=== PATIENT | female | born 1965 | race Caucasian/White ===

== ENCOUNTER 2017-07-28 23:07 | Emergency (ER) | payer OTHER ==
--- NOTE | 2017-07-28 23:51 | ERPHSYRPT ---
- History of Present Illness Time Seen by Provider: 07/28/17 23:40 Historian: patient Exam Limitations: clinical condition Patient Subjective Stated Complaint: Chest pain, nausea Triage Nursing Assessment: Pt presents to the ED with complaints of intermittent chest discomfort, denies pain at this time. Pt states "I have not felt well all day long." Pt states there is nothing that makes pain better or worse. No distress noted at this time, skin PWD, A&O x4. Physician History: PATIENT WITH A HISTORY OF COPD AND HYPERTENSION COMPLAINS OF UPPER CHEST PAIN DISCOMFORT DURATION 10 SECONDS DESCRIBED ACHING DISCOMFORT. HAS A PRODUCTIVE COUGH AND SLIGHT DYSPNEA DAILY. DENIES RADIATION OF PAIN TO NECK, JAW OR ARMS, FEVER OR CHILLS. Timing/Duration: today Activities at Onset: none Quality: aching Location: substernal Chest Pain Radiation: no radiation Severity of Pain-Max: mild Severity of Pain-Current: none Modifying Factors: Improves With: coughing, oxygen Associated Symptoms: denies symptoms Prior Chest Pain/Cardiac Workup: no prior cardiac workup Nitro Today/Relief: no nitro taken today Aspirin Treatment Today: 81 mg x 4, provided by EMS Allergies/Adverse Reactions: naproxen Allergy (Mild, Verified 07/28/17 23:28) Nausea Home Medications: Aspirin 81 gm Chew [Baby Aspirin 81 mg Chew] 243 mg PO DAILY 07/28/17 [ History] Metoprolol Succinate 50 mg [Toprol Xl 50 MG] 50 mg PO DAILY 07/28/17 [ History] Hx Tetanus, Diphtheria Vaccination/Date Given: No Hx Influenza Vaccination/Date Given: No Hx Pneumococcal Vaccination/Date Given: No Immunizations Up to Date: No - Review of Systems Constitutional: No Fever, No Chills Eyes: No Symptoms Ears, Nose, & Throat: No Symptoms Respiratory: Dyspnea, No Cough Cardiac: No Chest Pain, No Edema, No Syncope Abdominal/Gastrointestinal: No Abdominal Pain, No Nausea, No Vomiting, No Diarrhea Genitourinary Symptoms: No Dysuria Musculoskeletal: No Back Pain, No Neck Pain Skin: No Rash Neurological: No Dizziness, No Focal Weakness, No Sensory Changes Psychological: No Symptoms Endocrine: No Symptoms All Other Systems: Reviewed and Negative - Past Medical History Pertinent Past Medical History: Yes Respiratory History: Asthma Female Reproductive Disorders: Other - Past Surgical History Past Surgical History: Yes Female Surgical History: Hysterectomy Other Surgical History: TONSILECTOMY - Social History Smoking Status: Current every day smoker How long have you smoked: 40years Exposure to second hand smoke: Yes Drug Use: none Patient Lives Alone: No - Female History Hx Now: No - Nursing Vital Signs Nursing Vital Signs: Initial Vital Signs Temperature 97.9 F 07/28/17 23:20 Pulse Rate 88 07/28/17 23:20 Respiratory Rate 20 07/28/17 23:20 Blood Pressure 123/84 07/28/17 23:20 O2 Sat by Pulse Oximetry 95 07/28/17 23:20 Pain Scale Pain Intensity 0 - Physical Exam General Appearance: no apparent distress, alert Eye Exam: PERRL/EOMI, eyes nml inspection Ears, Nose, Throat Exam: normal ENT inspection, moist mucous membranes Neck Exam: normal inspection, non-tender, supple, full range of motion Respiratory Exam: normal breath sounds, diminished breath sounds, other ( TERMINAL EXPIRATORY WHEEZES), No respiratory distress Cardiovascular Exam: regular rate/rhythm, normal heart sounds Gastrointestinal/Abdomen Exam: soft, No tenderness, No mass Back Exam: normal inspection, No CVA tenderness, No vertebral tenderness Extremity Exam: normal inspection, normal range of motion Neurologic Exam: alert, oriented x 3, cooperative, normal mood/affect, sensation nml, No motor deficits Skin Exam: normal color, warm, dry SpO2: 95 Oxygen Delivery: Nasal Cannula - Course EKG Interpreted by Me: RATE, Sinus Rhythm, NORMAL AXIS - Radiology Exams Chest X-ray Interpretation: Interpreted by me (BIBASILAR SCARRING) Ordered Tests: Active Orders 24 hr Category Date Time Status Drugless Physician STAT Care 07/28/17 23:49 Active EKG-ER Only STAT Care 07/28/17 23:48 Active IV Insertion STAT Care 07/28/17 23:48 Active Oxygen-ED Only NASAL CANNULA 2 lpm Care 07/28/17 23:48 Active CHEST 1 VIEW (PORTABLE) Stat Exams 07/28/17 23:49 Taken TROPONIN Q3H Lab 07/29/17 02:49 Ordered TROPONIN Q3H Lab 07/29/17 05:49 Ordered TROPONIN Q3H Lab 07/29/17 08:49 Ordered TROPONIN Q3H Lab 07/29/17 11:49 Ordered Respiratory Nebulizer STAT RT 07/29/17 00:51 Completed Medication Summary Generic Name Dose Route Start Last Admin Trade Name Freq PRN Reason Stop Dose Admin Ceftriaxone Sodium/Dextrose 1 g in 50 mls @ 100 mls/hr 07/29/17 00:52 01:02 Rocephin 1 Gm-D5w 50 Ml Bag IV 07/29/17 01:21 100 mls/hr STAT STA Administration Discontinued Medications Generic Name Dose Route Start Last Admin Trade Name Freq PRN Reason Stop Dose Admin Albuterol/Ipratropium 3 ml 07/29/17 00:50 07/29/17 01:04 Duoneb 0.5-3 Mg/3 Ml Neb IH 07/29/17 00:51 3 ml STAT ONE Administration Albuterol/Ipratropium Confirm 07/29/17 00:53 Duoneb 0.5-3 Mg/3 Ml Neb Administered 07/29/17 00:54 Dose 3 ml IH .STK-MED ONE Ceftriaxone Sodium/Dextrose Confirm 07/29/17 01:01 Rocephin 1 Gm-D5w 50 Ml Bag Administered 07/29/17 01:02 Dose 1 g in 50 mls @ ud IV .STK-MED ONE Lab/Rad Data: Laboratory Result Diagrams 07/28/17 00:05 07/28/17 00:05 Laboratory Results 07/28/17 07/28/17 07/28/17 Range/Units 00:05 00:05 00:05 WBC (4.0-10.5) K/mm3 RBC (4.1-5.4) M/mm3 Hgb (12.0-16.0) gm/dl Hct (35-47) % MCV (78-100) fl MCH (26-32) pg MCHC (32-36) g/dl RDW (11.5-14.0) % Plt Count (150-450) K/mm3 MPV (6-9.5) fl Gran % (36.0-66.0) % Lymphocytes % (24.0-44.0) % Monocytes % (0.0-12.0) % Eosinophils % (0.00-5.0) % Basophils % (0.0-0.4) % Basophils # (0-0.4) INR 0.98 (0.8-3.0) Sodium 138 (136-145) mEq/L Potassium 3.6 (3.5-5.1) mEq/L Chloride 102 (98-107) mEq/L Carbon Dioxide 26.5 (21-32) mEq/L Anion Gap 13.1 (5-15) MEQ/L BUN 10 (9-20) mg/dL Creatinine 0.71 (0.55-1.30) mg/dl Estimated GFR > 60 ML/MIN Glucose 129 H (70-110) MG/DL Calcium 9.0 (8.5-10.1) mg/dL Total Bilirubin 0.20 (0.2-1.0) mg/dL AST 20 (15-37) U/L ALT 25 (12-78) U/L Alkaline Phosphatase 91 (46-116) U/L Troponin I < 0.017 (0.000-0.056) ng/ml Serum Total Protein 7.6 (6.4-8.2) gm/dL Albumin 3.2 L (3.4-5.0) g/dL 07/28/17 Range/Units 00:05 WBC 10.8 H (4.0-10.5) K/mm3 RBC 4.50 (4.1-5.4) M/mm3 Hgb 14.4 (12.0-16.0) gm/dl Hct 43.4 (35-47) % MCV 96.4 (78-100) fl MCH 32.0 (26-32) pg MCHC 33.2 (32-36) g/dl RDW 12.8 (11.5-14.0) % Plt Count 314 (150-450) K/mm3 MPV 9.1 (6-9.5) fl Gran % 63.1 (36.0-66.0) % Lymphocytes % 27.9 (24.0-44.0) % Monocytes % 6.9 (0.0-12.0) % Eosinophils % 1.9 (0.00-5.0) % Basophils % 0.2 (0.0-0.4) % Basophils # 0.02 (0-0.4) INR (0.8-3.0) Sodium (136-145) mEq/L Potassium (3.5-5.1) mEq/L Chloride (98-107) mEq/L Carbon Dioxide (21-32) mEq/L Anion Gap (5-15) MEQ/L BUN (9-20) mg/dL Creatinine (0.55-1.30) mg/dl Estimated GFR ML/MIN Glucose (70-110) MG/DL Calcium (8.5-10.1) mg/dL Total Bilirubin (0.2-1.0) mg/dL AST (15-37) U/L ALT (12-78) U/L Alkaline Phosphatase (46-116) U/L Troponin I (0.000-0.056) ng/ml Serum Total Protein (6.4-8.2) gm/dL Albumin (3.4-5.0) g/dL - Progress Progress: improved Air Movement: good Progress Note: 07/29/17 01:28 ADMINISTERED BABY ASA 4 TABLETS ORALLY, DUONEB AEROSOL TREATMENTS, IV ROCEPHIN 1GM Blood Culture(s) Obtained: No Antibiotics given: Yes Counseled pt/family regarding: lab results, diagnosis, need for follow-up, rad results - Departure Time of Disposition: 01:35 Departure Disposition: Home Clinical Impression: CHRONIC BRONCHITIS Condition: Stable Critical Care Time: No Referrals: PAUL STEVENSON [Primary Care Provider] - Additional Instructions: ANTIBIOTIC OMNICEF 300MG TWICE DAILY FOR 10 DAYS. CONSULT YOUR PRIMARY CARE PROVIDER THIS FOR EALUATION OF YOUR CHEST PAIN. RETURN TO EMERGENCY FOR CHEST PAIN DISCOMFORT. Prescriptions: Cefdinir [Omnicef 300 mg] 300 mg PO BID #20 capsule
[2017-07-29 00:16] LABS: BASOPHIL % 0.2 % (0.0-0.4); Basophil (Absolute #) 0.02 (0-0.4); Eosinophil % 1.9 % (0.00-5.0); Granulocyte Absolute (ANC) 6.82 (1.4-6.9); Granulocytes % 63.1 % (36.0-66.0); Hematocrit 43.4 % (35-47); Hemoglobin 14.4 gm/dl (12.0-16.0); Lymphocyte (Absolute #) 3.01 (1.0-4.6); Lymphocytes % 27.9 % (24.0-44.0); Mean Cell Volume 96.4 fl (78-100); Mean Corpuscular Hgb Concent. 33.2 g/dl (32-36); Mean Platelet Volume 9.1 fl (6-9.5); Monocyte (Absolute #) 0.74 (0.0-1.3); Monocytes % 6.9 % (0.0-12.0); Platelet Count 314 K/mm3 (150-450); Red Cell Distribution Width 12.8 % (11.5-14.0); White Blood Count 10.8 K/mm3 (4.0-10.5)
[2017-07-29 00:36] LABS: INR 0.98 (0.8-3.0)
[2017-07-29 00:40] LABS: ALBUMIN 3.2 g/dL (3.4-5.0); ALKALINE PHOSPHATASE 91 U/L (46-116); ANION GAP 13.1 MEQ/L (5-15); BLOOD UREA NITROGEN 10 mg/dL (9-20); CHLORIDE 102 mEq/L (98-107); Carbon Dioxide 26.5 mEq/L (21-32); Creatinine 1 0.71 mg/dl (0.55-1.30); Glucose 129 MG/DL (70-110); Potassium 3.6 mEq/L (3.5-5.1); SGOT/AST 20 U/L (15-37); SGPT/ALT 25 U/L (12-78); SODIUM 138 mEq/L (136-145); Total Protein 7.6 gm/dL (6.4-8.2)
[2017-07-29] MEDS ORDERED: DUONEB 0.5-3 MG/3 ml Neb IH ONE ×2 (00:50→00:53)
[2017-07-29] MEDS ORDERED: ROCEPHIN 1 Gm-D5w 50 ml Bag** 1 G/50 ML IVPB IV STA (00:52)
[2017-07-29] MEDS ORDERED: ROCEPHIN 1 Gm-D5w 50 ml Bag** 1 G/50 ML IVPB IV ONE (01:01)
[2017-07-29 01:51] VITALS: BP 124/74; PULSE 83; O2SAT 92
--- NOTE | 2017-07-29 09:10 | XRAY ---
Indication: Chest pain. Comparison: October 16, 2015. Portable chest unchanged again hyperinflated with minimal bibasilar fibrosis/scarring. Remaining lungs clear. Heart is not enlarged. Bony thorax intact. No new/acute findings.
== END 2017-07-29 01:50 | disposition home or self-care (01) ==
LOC: ED 23:07
DX: J42 Unspecified chronic bronchitis (principal); R07.9 Chest pain, unspecified; R05 Cough; R06.00 Dyspnea, unspecified
CPT/HCPCS: 36000; 36415; 71045; 80053; 84484; 85025; 85610; 93005; 93041; 94150; 94640; 96365; 99284; J0696; A9270-GY

== ENCOUNTER 2017-09-30 07:05 | Observation (INO) | payer OTHER ==
--- NOTE | 2017-09-30 07:24 | ERPHSYRPT ---
- History of Present Illness Time Seen by Provider: 09/30/17 07:21 Source: patient Exam Limitations: no limitations Patient Subjective Stated Complaint: Pt states "I have been short of breath for the past week, this morning I got up to drink some coffee and I was having a harder time breathing." Triage Nursing Assessment: Pt alert and oriented X 3, skin pwd. pt tachypneic. Able to speak in clear full sentences. PT has intermittant productive coughing. lung sounds diffuse wheezing in all lung og. Physician History: mild to mod shortness of breath and cough for one week, hx copd, given solumedrol by ems, no fever, speech fluent, +wheezing, no home oxygen Allergies/Adverse Reactions: naproxen Allergy (Mild, Verified 07/28/17 23:28) Nausea Home Medications: Aspirin 81 gm Chew [Baby Aspirin 81 mg Chew] 243 mg PO DAILY 07/28/17 [ History] Metoprolol Succinate 50 mg [Toprol Xl 50 MG] 50 mg PO DAILY 07/28/17 [ History] Albuterol Sulfate [Ventolin Hfa] 90 mcg IH DAILY 09/30/17 [History] Hx Tetanus, Diphtheria Vaccination/Date Given: No Hx Influenza Vaccination/Date Given: No Hx Pneumococcal Vaccination/Date Given: No Immunizations Up to Date: Yes - Review of Systems Constitutional: No Fever Eyes: No Eye Redness Ears, Nose, & Throat: No Mouth Pain Respiratory: Cough, Dyspnea, Wheezing, No Stridor Cardiac: No Chest Pain Abdominal/Gastrointestinal: No Abdominal Pain Genitourinary Symptoms: No Dysuria Musculoskeletal: No Back Pain Skin: No Rash Neurological: No Dizziness - Past Medical History Pertinent Past Medical History: Yes Respiratory History: Asthma Female Reproductive Disorders: Other - Past Surgical History Past Surgical History: Yes Female Surgical History: Hysterectomy Other Surgical History: TONSILECTOMY - Social History Smoking Status: Former smoker How long have you smoked: 40years Exposure to second hand smoke: Yes Drug Use: none Patient Lives Alone: No - Female History Hx Last Menstrual Period: hysterectomy Hx Now: No - Nursing Vital Signs Nursing Vital Signs: Initial Vital Signs Temperature 99.1 F 09/30/17 07:06 Pulse Rate 118 H 09/30/17 07:06 Respiratory Rate 22 09/30/17 07:06 Blood Pressure 142/71 09/30/17 07:06 O2 Sat by Pulse Oximetry 89 L 09/30/17 07:06 Pain Scale Pain Intensity 0 - Physical Exam General Appearance: no apparent distress Eye Exam: PERRL/EOMI Ears, Nose, Throat Exam: normal pharynx Neck Exam: normal inspection Respiratory Exam: wheezing Cardiovascular/Chest Exam: regular rate/rhythm Abdominal/Gastrointestinal Exam: soft, No tenderness Extremity Exam: normal range of motion, No pedal edema Neurologic Exam: alert, oriented x 3, cooperative Skin Exam: warm, dry SpO2 Interpretation: hypoxic SpO2: 89 Oxygen Delivery: Room Air - Course Nursing assessment & vital signs reviewed: Yes EKG Interpreted by Me: Other (nsr 98 no stemi) - Radiology Exams Chest X-ray Interpretation: Discussed w/ radiologist, No Infiltrates Ordered Tests: Active Orders 24 hr Category Date Time Status Lead Miner STAT Care 09/30/17 07:20 Active EKG-ER Only STAT Care 09/30/17 07:19 Active IV Insertion STAT Care 09/30/17 07:19 Active Oxygen-ED Only NASAL CANNULA 2 lpm Care 09/30/17 07:24 Active CHEST 2 VIEWS (PA AND LAT) Stat Exams 09/30/17 07:20 Completed CBC W DIFF Stat Lab 09/30/17 07:28 Completed CMP Stat Lab 09/30/17 07:28 Completed D-DIMER QUANTITATION Stat Lab 09/30/17 07:28 Completed Lactic Acid Stat Lab 09/30/17 07:19 Completed NT PRO BNP Stat Lab 09/30/17 07:28 Completed TROPONIN Q3H Lab 09/30/17 07:28 Completed TROPONIN Q3H Lab 09/30/17 10:30 Ordered TROPONIN Q3H Lab 09/30/17 13:30 Ordered TROPONIN Q3H Lab 09/30/17 16:30 Ordered TROPONIN Q3H Lab 09/30/17 19:30 Ordered Respiratory Nebulizer STAT RT 09/30/17 07:20 Completed Medication Summary Discontinued Medications Generic Name Dose Route Start Last Admin Trade Name Freq PRN Reason Stop Dose Admin Albuterol/Ipratropium 3 ml 09/30/17 07:19 09/30/17 07:37 Duoneb 0.5-3 Mg/3 Ml Neb IH 09/30/17 07:20 3 ml STAT ONE Administration Albuterol/Ipratropium Confirm 09/30/17 07:30 Duoneb 0.5-3 Mg/3 Ml Neb Administered 09/30/17 07:31 Dose 3 ml IH .STK-MED ONE Lab/Rad Data: Laboratory Result Diagrams 09/30/17 07:28 09/30/17 07:28 Laboratory Results 09/30/17 09/30/17 09/30/17 Range/Units 07:28 07:28 07:28 WBC (4.0-10.5) K/mm3 RBC (4.1-5.4) M/mm3 Hgb (12.0-16.0) gm/dl Hct (35-47) % MCV (78-100) fl MCH (26-32) pg MCHC (32-36) g/dl RDW (11.5-14.0) % Plt Count (150-450) K/mm3 MPV (6-9.5) fl Gran % (36.0-66.0) % Eos # (Auto) (0-0.5) Absolute Lymphs (auto) (1.0-4.6) Absolute Monos (auto) (0.0-1.3) Lymphocytes % (24.0-44.0) % Monocytes % (0.0-12.0) % Eosinophils % (0.00-5.0) % Basophils % (0.0-0.4) % Absolute Granulocytes (1.4-6.9) Basophils # (0-0.4) D-Dimer 344.93 (215-500) ng/mL Sodium 142 (137-145) mmol/L Potassium 3.6 (3.5-5.1) mmol/L Chloride 103 (98-107) mmol/L Carbon Dioxide 27 (22-30) mmol/L Anion Gap 14.8 (5-15) MEQ/L BUN 9 (7-17) mg/dL Creatinine 0.55 (0.52-1.04) mg/dL Estimated GFR > 60.0 ML/MIN Glucose 171 H (74-106) mg/dL Lactic Acid (0.4-2.0) Calcium 9.2 (8.4-10.2) mg/dL Total Bilirubin 0.40 (0.2-1.3) mg/dL AST 32 (14-36) U/L ALT 29 (0-35) U/L Alkaline Phosphatase 87 (38-126) U/L Troponin I < 0.012 (0.000-0.034) ng/mL NT-Pro-B Natriuret Pep 88.6 (0-900) pg/mL Serum Total Protein 7.6 (6.3-8.2) g/dL Albumin 4.2 (3.5-5.0) g/dL 09/30/17 09/30/17 Range/Units 07:28 07:19 WBC 8.6 (4.0-10.5) K/mm3 RBC 4.76 (4.1-5.4) M/mm3 Hgb 15.1 (12.0-16.0) gm/dl Hct 46.5 (35-47) % MCV 97.7 (78-100) fl MCH 31.7 (26-32) pg MCHC 32.5 (32-36) g/dl RDW 13.1 (11.5-14.0) % Plt Count 295 (150-450) K/mm3 MPV 8.9 (6-9.5) fl Gran % 77.3 H (36.0-66.0) % Eos # (Auto) 0.12 (0-0.5) Absolute Lymphs (auto) 1.22 (1.0-4.6) Absolute Monos (auto) 0.58 (0.0-1.3) Lymphocytes % 14.3 L (24.0-44.0) % Monocytes % 6.8 (0.0-12.0) % Eosinophils % 1.4 (0.00-5.0) % Basophils % 0.2 (0.0-0.4) % Absolute Granulocytes 6.62 (1.4-6.9) Basophils # 0.02 (0-0.4) D-Dimer (215-500) ng/mL Sodium (137-145) mmol/L Potassium (3.5-5.1) mmol/L Chloride (98-107) mmol/L Carbon Dioxide (22-30) mmol/L Anion Gap (5-15) MEQ/L BUN (7-17) mg/dL Creatinine (0.52-1.04) mg/dL Estimated GFR ML/MIN Glucose (74-106) mg/dL Lactic Acid 1.7 (0.4-2.0) Calcium (8.4-10.2) mg/dL Total Bilirubin (0.2-1.3) mg/dL AST (14-36) U/L ALT (0-35) U/L Alkaline Phosphatase (38-126) U/L Troponin I (0.000-0.034) ng/mL NT-Pro-B Natriuret Pep (0-900) pg/mL Serum Total Protein (6.3-8.2) g/dL Albumin (3.5-5.0) g/dL - Progress Progress: improved Air Movement: fair Discussed with : Yuliya Will see patient in: hospital (observation) Counseled pt/family regarding: lab results, diagnosis, need for follow-up, rad results - Departure Time of Disposition: 09:53 Departure Disposition: Observation Clinical Impression: COPD (chronic obstructive pulmonary disease) Qualifiers: COPD type: COPD with acute exacerbation Qualified Code(s): J44.1 - Chronic obstructive pulmonary disease with (acute) exacerbation Condition: Stable Critical Care Time: No Referrals: PAUL STEVENSON [Primary Care Provider] - Instructions: Chronic Obstructive Pulmonary Disease
[2017-09-30] MEDS ORDERED: DUONEB 0.5-3 MG/3 ml Neb IH ONE (07:30)
[2017-09-30 07:31] LABS: BASOPHIL % 0.2 % (0.0-0.4); Basophil (Absolute #) 0.02 (0-0.4); Eosinophil % 1.4 % (0.00-5.0); Eosinophil (Absolute #) 0.12 (0-0.5); Granulocyte Absolute (ANC) 6.62 (1.4-6.9); Granulocytes % 77.3 % (36.0-66.0); Hematocrit 46.5 % (35-47); Hemoglobin 15.1 gm/dl (12.0-16.0); Lymphocyte (Absolute #) 1.22 (1.0-4.6); Lymphocytes % 14.3 % (24.0-44.0); Mean Cell Volume 97.7 fl (78-100); Mean Corpuscular Hemoglobin 31.7 pg (26-32); Mean Corpuscular Hgb Concent. 32.5 g/dl (32-36); Mean Platelet Volume 8.9 fl (6-9.5); Monocyte (Absolute #) 0.58 (0.0-1.3); Monocytes % 6.8 % (0.0-12.0); Platelet Count 295 K/mm3 (150-450); Red Blood Count 4.76 M/mm3 (4.1-5.4); Red Cell Distribution Width 13.1 % (11.5-14.0); White Blood Count 8.6 K/mm3 (4.0-10.5)
[2017-09-30] MEDS: DUONEB 0.5-3 MG/3 ml Neb IH ONE ×2 (07:37→11:28)
[2017-09-30 08:05] LABS: ALBUMIN 4.2 g/dL (3.5-5.0); ALKALINE PHOSPHATASE 87 U/L (38-126); ANION GAP 14.8 MEQ/L (5-15); BLOOD UREA NITROGEN 9 mg/dL (7-17); CHLORIDE 103 mmol/L (98-107); Calcium 9.2 mg/dL (8.4-10.2); Carbon Dioxide 27 mmol/L (22-30); Creatinine 1 0.55 mg/dL (0.52-1.04); Glucose 171 mg/dL (74-106); Potassium 3.6 mmol/L (3.5-5.1); SGOT/AST 32 U/L (14-36); SGPT/ALT 29 U/L (0-35); SODIUM 142 mmol/L (137-145); Total Protein 7.6 g/dL (6.3-8.2)
[2017-09-30 08:13] LABS: NT PRO BNP 88.6 pg/mL (0-900)
--- NOTE | 2017-09-30 09:16 | XRAY ---
Indication: Short of breath. COPD. Comparison: July 28, 2017. PA/lateral chest again hyperinflated with minimal bibasilar fibrosis/scarring and left upper lobe calcified granuloma. Heart is not enlarged. Bony thorax intact again with mild degenerative changes. No new/acute findings. Impression: Stable nonacute hyperinflated chest with chronic features.
[2017-09-30] MEDS ORDERED: TYLENOL 325 MG PO PRN (10:42)
[2017-09-30] MEDS ORDERED: Sodium Chloride 0.9% 1000 ML 1,000 ML IV SCH (10:42)
[2017-09-30] MEDS: Levofloxacin 500MG/100ML D5W 500 MG/100 ML BAG IV SCH (11:20)
[2017-09-30] MEDS: DUONEB 0.5-3 MG/3 ml Neb IH SCH ×3 (15:00→23:06)
[2017-09-30] MEDS: ECOTRIN 81 MG PO SCH (16:10)
[2017-09-30] MEDS: Toprol Xl 50 MG PO SCH (16:10)
[2017-09-30] MEDS ORDERED: solu-MEDROL 125 MG IV ONE (17:49)
--- NOTE | 2017-09-30 17:58 | PCM.HP ---
History of Present Illness - Chief Complaint Chief Complaint: Shortness of Breath Date: 09/30/17 History of Present Illness: is a 52 year old female. who has history of copd and quit smoking 1 month ago and for the last 1 week has had some upper respiratory symptoms but nothing too bad with coughing and congestion until this am she woke up and tried to go to the bathroom was wheezing badly and very short of breath and coughing. She tried her daughters neb machine X2 and was not improving and called 911 and was brought to the ED. She did not have chest pain or nasuea. She feels better now after O2 and treatments. She has not had any swelling - Review of Systems Constitutional: No Fever, No Chills Eyes: No Symptoms Ears, Nose, & Throat: No Symptoms Respiratory: Cough, Short Of Breath Cardiac: No Chest Pain, No Edema, No Syncope Abdominal/Gastrointestinal: No Abdominal Pain, No Nausea, No Vomiting, No Diarrhea Genitourinary Symptoms: No Dysuria Musculoskeletal: No Back Pain, No Neck Pain Skin: No Rash Neurological: No Dizziness, No Focal Weakness, No Sensory Changes Psychological: No Symptoms Endocrine: No Symptoms Hematologic/Lymphatic: No Symptoms Immunological/Allergic: No Symptoms Medications & Allergies Home Medications: Home Medication List Aspirin 81 gm Chew [Baby Aspirin 81 mg Chew] 243 mg PO DAILY 07/28/17 [ History Confirmed 09/30/17] Metoprolol Succinate 50 mg [Toprol Xl 50 MG] 50 mg PO DAILY 07/28/17 [ History Confirmed 09/30/17] Albuterol Sulfate [Ventolin Hfa] 90 mcg IH DAILY 09/30/17 [History Confirmed 12/11] Allergies/Adverse Reactions: Allergies Allergy/AdvReac Type Severity Reaction Status Date / Time naproxen Allergy Mild Nausea Verified 07/28/17 23:28 Sulfa (Sulfonamide Allergy Verified 09/30/17 11:45 Antibiotics) - Past Medical History Past Medical History: Yes Neurological History: No Pertinent History ENT History: No Pertinent History Cardiac History: No Pertinent History Respiratory History: Asthma Endocrine Medical History: No Pertinent History Musculoskelatal History: No Pertinent History GI Medical History: No Pertinent History History: No Pertinent History Pyscho-Social History: No Pertinent History Reproductive Disorders: Other Comment: Cervical dysplasia - Female History Hx Last Menstrual Period: hysterectomy Are you now?: No - Past Surgical History Past Surgical History: Yes Neuro Surgical History: No Pertinent History Cardiac History: No Pertinent History Respiratory Surgery: No Pertinent History GI Surgical History: No Pertinent History Genitourinary Surgical Hx: No Pertinent History Musculskeletal Surgical Hx: No Pertinent History Female Surgical History: Hysterectomy Other Surgical History: TONSILECTOMY - Social History Smoking Status: Former smoker How long have you smoked: 40years Exposure to second hand smoke: Yes Alcohol: None Drug Use: none - Physical Exam Vital Signs: Vital Signs - 24 hr Temp Pulse Resp BP Pulse Ox 09/30/17 16:00 98.0 F 97 H 16 144/69 90 L 09/30/17 15:00 97 H 18 90 L 09/30/17 11:46 98.0 F 88 18 109/59 89 L 09/30/17 11:30 95 H 18 95 09/30/17 09:54 89 L 09/30/17 09:31 99.0 F 89 18 103/57 85 L 09/30/17 08:48 99.0 F 92 H 18 122/70 90 L 09/30/17 07:55 99.0 F 98 H 20 122/77 91 L 09/30/17 07:38 73 24 90 L 09/30/17 07:06 99.1 F 118 H 22 142/71 89 L Oxygen-Last 24 hours O2 Percentage 2 Liters = 28% O2 Percentage 4 Liters = 36% O2 Percentage 4 Liters = 36% Oxygen Flowrate (L/min)-RT 2 General Appearance: no apparent distress, alert Neurologic Exam: alert, oriented x 3, cooperative, normal mood/affect, nml cerebellar function, nml station & gait, sensation nml, No motor deficits Eye Exam: PERRL/EOMI, eyes nml inspection Ears, Nose, Throat Exam: normal ENT inspection, pharynx normal, moist mucous membranes Neck Exam: normal inspection, non-tender, supple, full range of motion Respiratory Exam: prolonged expirations, wheezing, other (poor airmovement with prolonged expirations and wheezing.), No respiratory distress Cardiovascular Exam: regular rate/rhythm, normal heart sounds, normal peripheral pulses Gastrointestinal/Abdomen Exam: soft, normal bowel sounds, No tenderness, No mass Back Exam: normal inspection, normal range of motion, No CVA tenderness, No vertebral tenderness Extremity Exam: normal inspection, normal range of motion, pelvis stable Skin Exam: normal color, warm, dry, No rash Lymphatic Exam: No adenopathy Results - Labs Lab/Micro Results: Lab Results-Last 24 Hours 09/30/17 09/30/17 09/30/17 Range/Units 10:43 13:50 16:46 Troponin I < 0.012 < 0.012 < 0.012 (0.000-0.034) ng/mL - Other Procedures and Tests Respiratory Therapy 09/30/17 11:19 Oxygen NASAL CANNULA 2 lpm 09/30/17 11:20 Respiratory Nebulizer Q4H 09/30/17 12:34 RT Screen per Nursing Assess ONCE Assessment/Plan (1) COPD (chronic obstructive pulmonary disease) Current Visit: Yes Status: Acute Onset Date: ~09/30/17 Qualifiers: COPD type: COPD with acute exacerbation Qualified Code(s): J44.1 - Chronic obstructive pulmonary disease with (acute) exacerbation Assessment & Plan: she received levaquin in ED and atrovent and albuterol and is improving no steroids yet very tight breathing will give solumedrol 125 mg iv stat now and 80 mg q6h following this. will add GI ppx with the protonix whil danica the steroids continue treatments and levaquin no chest pain and negative enzymes she is bothered by the tele so will d/c this up ad martinez lovenox for ppx wean O2 as tolerated (2) Acute hypoxemic respiratory failure Current Visit: Yes Status: Acute Code(s): J96.01 - ACUTE RESPIRATORY FAILURE WITH HYPOXIA
[2017-09-30] MEDS: Protonix 40MG Tablet PO SCH (18:11)
[2017-09-30] MEDS: solu-MEDROL 125 MG IV SCH (23:46)
[2017-10-01] MEDS: DUONEB 0.5-3 MG/3 ml Neb IH SCH ×6 (03:41→23:39)
[2017-10-01 05:53] LABS: ANION GAP 15.8 MEQ/L (5-15); BLOOD UREA NITROGEN 9 mg/dL (7-17); CHLORIDE 105 mmol/L (98-107); Calcium 9.4 mg/dL (8.4-10.2); Carbon Dioxide 23 mmol/L (22-30); Glucose 167 mg/dL (74-106); Potassium 4.9 mmol/L (3.5-5.1); SODIUM 139 mmol/L (137-145)
[2017-10-01] MEDS: solu-MEDROL 125 MG IV SCH ×3 (05:56→17:59)
[2017-10-01] MEDS ORDERED: xanAX 0.5 MG PO PRN (08:09)
--- NOTE | 2017-10-01 08:12 | PCM.NOTE ---
Date and Time: 10/01/17809 Subjective Assessment: feeling better still sob with exertion tried to take O2 off but dropped to 83% coughing ok dryness and soreness in her throat no vomiting or diarrhea Objective Exam General Appearance: no apparent distress, alert Neurologic Exam: alert, oriented x 3, cooperative, normal mood/affect, nml cerebellar function, sensation nml, No motor deficits Skin Exam: normal color, warm, dry Eye Exam: PERRL, EOMI, eyes nml inspection Ears, Nose, Throat Exam: pharynx normal, dry mucous membranes Neck Exam: normal inspection, non-tender, supple, full range of motion Respiratory Exam: prolonged expirations, wheezing, No respiratory distress Cardiovascular Exam: regular rate/rhythm, normal heart sounds Gastrointestinal/Abdomen Exam: soft, No tenderness, No mass Extremity Exam: normal inspection, normal range of motion Back Exam: normal inspection, normal range of motion, No CVA tenderness, No vertebral tenderness Pelvic Exam: deferred Rectal Exam: deferred OBJECTIVE DATA Vital Signs: Vital Signs - 24 hr Temp Pulse Resp BP Pulse Ox 10/01/17 07:27 98 F 87 18 113/58 91 L 10/01/17 07:00 98 H 24 83 L 10/01/17 03:55 20 10/01/17 03:49 97.6 F 71 20 123/58 91 L 10/01/17 03:42 71 20 91 L 10/01/17 00:00 98.4 F 86 20 123/60 93 L 09/30/17 23:06 94 H 16 89 L 09/30/17 20:42 83 16 92 L 09/30/17 20:00 97.5 F 86 18 129/61 90 L 09/30/17 16:00 98.0 F 97 H 16 144/69 90 L 09/30/17 15:00 97 H 18 90 L 09/30/17 11:46 98.0 F 88 18 109/59 89 L 09/30/17 11:30 95 H 18 95 09/30/17 09:54 89 L 09/30/17 09:31 99.0 F 89 18 103/57 85 L 09/30/17 08:48 99.0 F 92 H 18 122/70 90 L Oxygen-Last 24 hours O2 Percentage 3 Liters = 32% O2 Percentage 3 Liters = 32% O2 Percentage 2 Liters = 28% O2 Percentage 2 Liters = 28% Oxygen Flowrate (L/min)-RT 3 Oxygen Flowrate (L/min)-RT 3 Oxygen Flowrate (L/min)-RT 3 Oxygen Flowrate (L/min)-RT 2 Oxygen Flowrate (L/min)-RT 2 Pain Assessment - Last Documented Pain Intensity 0 Pain Scale Used 0-10 Pain Scale Intake and Output: Intake & Output 09/28/17 09/29/17 09/30/17 10/01/17 11:59 11:59 11:59 11:59 Intake Total 3637 Output Total 2750 Balance 887 Weight 98.9 kg Lab Results: Lab Results-Last 24 Hours 09/30/17 09/30/17 09/30/17 Range/Units 10:43 13:50 16:46 Sodium (137-145) mmol/L Potassium (3.5-5.1) mmol/L Chloride (98-107) mmol/L Carbon Dioxide (22-30) mmol/L Anion Gap (5-15) MEQ/L BUN (7-17) mg/dL Creatinine (0.52-1.04) mg/dL Estimated GFR ML/MIN Glucose (74-106) mg/dL Hemoglobin A1c (4.5-6.0) % Calcium (8.4-10.2) mg/dL Troponin I < 0.012 < 0.012 < 0.012 (0.000-0.034) ng/mL 10/01/17 10/01/17 Range/Units 05:20 05:20 Sodium 139 (137-145) mmol/L Potassium 4.9 (3.5-5.1) mmol/L Chloride 105 (98-107) mmol/L Carbon Dioxide 23 (22-30) mmol/L Anion Gap 15.8 H (5-15) MEQ/L BUN 9 (7-17) mg/dL Creatinine 0.50 L (0.52-1.04) mg/dL Estimated GFR > 60.0 ML/MIN Glucose 167 H (74-106) mg/dL Hemoglobin A1c 5.80 (4.5-6.0) % Calcium 9.4 (8.4-10.2) mg/dL Troponin I (0.000-0.034) ng/mL Multi-Disciplinary Progress Notes: Multi-Disciplinary Progress Notes 10/01/17 07:02 Respiratory Note by Marian Perrin ROOM AIR RESTING SPO2 83%. PLACED ON N/C 3LPM SPO2 AT REST 93% Initialized on 10/01/17 07:02 - END OF NOTE Assessment/Plan (1) COPD (chronic obstructive pulmonary disease) Current Visit: Yes Status: Acute Onset Date: ~09/30/17 Qualifiers: COPD type: COPD with acute exacerbation Qualified Code(s): J44.1 - Chronic obstructive pulmonary disease with (acute) exacerbation Assessment & Plan: has only been on the steroids about 12 hours now she is anxious to go home to care for her adult son with down syndrome. Breath sounds much improved today and recommend 24 hours with the steroids and may be able to wean the O2 if not we can send home tomorrow with home O2 (2) Acute hypoxemic respiratory failure Current Visit: Yes Status: Acute Code(s): J96.01 - ACUTE RESPIRATORY FAILURE WITH HYPOXIA
[2017-10-01] MEDS: ECOTRIN 81 MG PO SCH (08:50)
[2017-10-01] MEDS: ENOXAPARIN SODIUM SQ SCH (08:50)
[2017-10-01] MEDS: Levofloxacin 500MG/100ML D5W 500 MG/100 ML BAG IV SCH (08:51)
[2017-10-01] MEDS: Protonix 40MG Tablet PO SCH (08:51)
[2017-10-01] MEDS: Toprol Xl 50 MG PO SCH (08:51)
[2017-10-01] MEDS ORDERED: Ventolin Hfa MDI IH SCH (10:00)
[2017-10-01] MEDS ORDERED: PROVENTIL COMMON CANISTER IH SCH (10:00)
[2017-10-01] MEDS ORDERED: BABY ASPIRIN 81 MG CHEW PO SCH (10:00)
[2017-10-02] MEDS: solu-MEDROL 125 MG IV SCH ×2 (00:43→06:28)
[2017-10-02] MEDS: DUONEB 0.5-3 MG/3 ml Neb IH SCH ×2 (03:38→06:43)
--- NOTE | 2017-10-02 08:22 | PCM.DS ---
Discharge Summary Date of Admission: 09/30/17 10:28 Date of Discharge: 10/02/2017 Admitting Physician: PAUL STEVENSON Primary Care Provider: PAUL STEVENSON Allergies Allergies naproxen Allergy (Mild, Verified 07/28/17 23:28) Nausea Sulfa (Sulfonamide Antibiotics) Allergy (Verified 09/30/17 11:45) Hospital Summary - Hospital Course Hospital Course: she presented wtih acute on chronic worsening of cough and shortness of breath and had CT PE protocol and ekg and troponin sereies that were unremarkable. She had significant wheezing and poor airmovement. She was treated with iv steroids , levaquin and nebs and did have improvement in symptoms but continued to require oxygen. She was improving and otherwise stable but unable to ambulate without desaturation. She was very motivated to leave as she has an adult son with Trisomy 21 she needs to help care for at home. She was improving. she did stop smoking 1 month ago. She was discharged on steroids, levaquin and duonebs. She will continue O2 at home and f/u as an outpatient on the duration of need. The steroids cause her significant restlessness and increased anxiety which is improved with the alprazolam. A short coarse to use as needed with the steroids was given. She understands there risk of abuse and habit forming potential - Vitals & Intake/Output Vital Signs: Vital Signs Temperature 98.2 F 10/02/17 07:33 Pulse Rate 75 10/02/17 07:33 Respiratory Rate 28 H 10/02/17 07:33 Blood Pressure 118/56 10/02/17 07:33 O2 Sat by Pulse Oximetry 91 L 10/02/17 07:33 Oxygen-Last Documented O2 Percentage 3 Liters = 32% Intake & Output: Intake & Output 09/29/17 09/30/17 10/01/17 10/02/17 11:59 11:59 11:59 11:59 Intake Total 3637 1440 Output Total 3250 600 Balance 387 840 Weight 98.9 kg - Lab Result Diagrams: 09/30/17 07:28 10/01/17 05:20 - Procedures and Test Procedures and Tests throughout Hospitalization: Therapy Orders & Screens 09/30/17 11:20 Respiratory Nebulizer Q4H Comment: Diagnosis: Shortness of Breath 09/30/17 12:34 RT Screen per Nursing Assess ONCE Comment: Protocol Order Physician Instructions: Greater than 3 points order RT Admission Screen Reason For Exam: Triggered on Admission Diagnosis: Shortness of Breath Diagnosis: Shortness of Breath Pneumonia: No Home O2: No Asthma: Yes CHF: No Home CPAP/BIPAP: No Home Nebs/MDI: Yes Total Points: 9 Discharge Exam General Appearance: no apparent distress, alert Neurologic Exam: alert, oriented x 3, cooperative, normal mood/affect, nml cerebellar function, sensation nml, No motor deficits Skin Exam: normal color, warm, dry Eye Exam: PERRL, EOMI, eyes nml inspection Ears, Nose, Throat Exam: normal ENT inspection, pharynx normal, moist mucous membranes Neck Exam: normal inspection, non-tender, supple, full range of motion Respiratory Exam: rhonchi, wheezing Cardiovascular Exam: regular rate/rhythm, normal heart sounds Gastrointestinal/Abdomen Exam: soft, No tenderness, No mass Extremity Exam: normal inspection, normal range of motion Back Exam: normal inspection, normal range of motion, No CVA tenderness, No vertebral tenderness Pelvic Exam: deferred Rectal Exam: deferred Final Diagnosis/Problem List - Final Discharge Diagnosis/Problem (1) COPD (chronic obstructive pulmonary disease) Status: Acute Onset Date: ~09/30/17 (2) Acute hypoxemic respiratory failure Status: Acute Onset Date: ~10/01/17 - Discharge Discharge Date: 10/02/17 Disposition: Home, Self-Care Condition: Stable Prescriptions: New ALPRAZolam [Alprazolam] 0.5 mg PO Q6H PRN #15 tablet PRN Reason: Anxiety Albuterol/Ipratropium 3ml Neb* [DUONEB 0.5-3 MG/3 ml Neb] 3 ml IH Q4HRT PRN #50 ampul.neb PRN Reason: Shortness Of Breath/Wheezing Levofloxacin [Levaquin] 500 mg PO DAILY #5 tablet predniSONE [Prednisone] 40 mg PO UD #15 tablet Continue Metoprolol Succinate 50 mg [Toprol Xl 50 MG] 50 mg PO DAILY Aspirin 81 gm Chew [Baby Aspirin 81 mg Chew] 243 mg PO DAILY Albuterol Sulfate [Ventolin Hfa] 90 mcg IH DAILY Instructions: Acute Bronchitis, Adult (DC), Oxygen Therapy, Adult (DC), How to Use a Nebulizer, Adult, Exacerbation of COPD (DC) Additional Instructions: please set up for home oxygen for use at night and with activity, nebulizer and home pulse ox monitoring to check as needed. Follow up with: PAUL STEVENSON [Primary Care Provider] - 10/09/17 9:45 am
[2017-10-02] MEDS: ECOTRIN 81 MG PO SCH (08:59)
[2017-10-02] MEDS: Levofloxacin 500MG/100ML D5W 500 MG/100 ML BAG IV SCH (08:59)
[2017-10-02] MEDS: Toprol Xl 50 MG PO SCH (08:59)
[2017-10-02] MEDS: Protonix 40MG Tablet PO SCH (08:59)
[2017-10-02] MEDS: ENOXAPARIN SODIUM SQ SCH (09:02)
[2017-10-02 11:31] VITALS: BP 133/63; PULSE 86; O2SAT 94
== END 2017-10-02 12:15 | disposition home or self-care (01) ==
LOC: ED 07:05 → MED SURG 10:28
PROVIDERS: ADMIT Family Medicine; ATTEND Family Medicine
DX: J44.9 Chronic obstructive pulmonary disease, unspecified (principal); J96.01 Acute respiratory failure with hypoxia
CPT/HCPCS: 36415; 71046; 80048; 80053; 83036; 83605; 83880; 84484; 85025; 85379; 87040; 93005; 93041; 93268; 94150; 94640; 94760; 99285; J1650; J1956; J2930; A9270-GY; G0378

== ENCOUNTER 2018-01-04 21:24 | Emergency (ER) | payer OTHER ==
--- NOTE | 2018-01-04 22:08 | ERPHSYRPT ---
- History of Present Illness Time Seen by Provider: 01/04/18 22:04 Source: patient, family Exam Limitations: no limitations Patient Subjective Stated Complaint: pt states she has been feeling short of breath today, denies increase in cough. Triage Nursing Assessment: pt alert and oriented, answers questions approp. pt ambulatory with steady gait noted. pt reports shortness of breath with exertion. respirations nonlabored. exp wheeze noted to lt thoroughout. pt arrive with o2 at 3l per nc and states she wears as needed at home. skin pink warm and dry. Physician History: pt has hx COPD using oxygen at home and panic attacks- lots of stress lately feels burning in chest with deep breath and at other times - intermittent with shortness of breath, no known CAD , no hx PE no current CP , took asa already pt was on cholesterol med but not anymore, and now on hptn med only; pt was smoker and quit in July; pt has family hx ht dx but at old age mainly. Timing/Duration: today Activities at Onset: emotional stress Severity of Dyspnea-Max: moderate Severity of Dyspnea-Current: moderate Possible Cause: frequent episodes, chronic episodes Modifying Factors: Improves With: albuterol inhaler, deep breath Associated Symptoms: chest pain/discomfort, wheezing, painful breathing International travel in last 2 weeks: No Allergies/Adverse Reactions: naproxen Allergy (Mild, Verified 01/04/18 21:36) Nausea Sulfa (Sulfonamide Antibiotics) Allergy (Verified 01/04/18 21:36) Home Medications: Aspirin 81 gm Chew [Baby Aspirin 81 mg Chew] 243 mg PO DAILY 07/28/17 [ History] Metoprolol Succinate 50 mg [Toprol Xl 50 MG] 50 mg PO DAILY 07/28/17 [ History] Albuterol Sulfate [Ventolin Hfa] 90 mcg IH Q4HPRN PRN 09/30/17 [History] Hx Tetanus, Diphtheria Vaccination/Date Given: No Hx Influenza Vaccination/Date Given: No Hx Pneumococcal Vaccination/Date Given: No Immunizations Up to Date: No - Review of Systems Constitutional: No Fever, No Chills Eyes: No Symptoms Ears, Nose, & Throat: No Symptoms Respiratory: Dyspnea, Wheezing, No Cough Cardiac: Chest Pain, No Edema, No Syncope Abdominal/Gastrointestinal: No Abdominal Pain, No Nausea, No Vomiting, No Diarrhea Genitourinary Symptoms: No Dysuria Musculoskeletal: No Back Pain, No Neck Pain Skin: No Rash Neurological: No Dizziness, No Focal Weakness, No Sensory Changes Psychological: No Symptoms Endocrine: No Symptoms All Other Systems: Reviewed and Negative - Past Medical History Pertinent Past Medical History: Yes Neurological History: No Pertinent History ENT History: No Pertinent History Cardiac History: No Pertinent History, Hypertension Respiratory History: Asthma, COPD Endocrine Medical History: No Pertinent History Musculoskeletal History: No Pertinent History GI Medical History: No Pertinent History History: No Pertinent History Psycho-Social History: No Pertinent History Female Reproductive Disorders: Other Other Medical History: Cervical dysplasia - Past Surgical History Past Surgical History: Yes Neuro Surgical History: No Pertinent History Cardiac: No Pertinent History Respiratory: No Pertinent History Gastrointestinal: No Pertinent History Genitourinary: No Pertinent History Musculoskeletal: No Pertinent History Female Surgical History: Hysterectomy Other Surgical History: TONSILECTOMY - Social History Smoking Status: Former smoker How long have you smoked: 40years Exposure to second hand smoke: Yes Drug Use: none Patient Lives Alone: No - Nursing Vital Signs Nursing Vital Signs: Initial Vital Signs Temperature 97.9 F 01/04/18 21:26 Pulse Rate 99 H 01/04/18 21:26 Respiratory Rate 20 01/04/18 21:26 Blood Pressure 170/89 01/04/18 21:26 O2 Sat by Pulse Oximetry 96 01/04/18 21:26 Pain Scale Pain Intensity 0 - Physical Exam General Appearance: no apparent distress, alert Eye Exam: PERRL/EOMI Neck Exam: normal inspection, supple Respiratory Exam: airway intact, rhonchi, wheezing Cardiovascular/Chest Exam: normal heart sounds, regular rate/rhythm Abdominal/Gastrointestinal Exam: soft, No tenderness, No distention, No mass Rectal Exam: deferred Extremity Exam: non-tender, normal range of motion, normal inspection, no calf tenderness, no pedal edema Peripheral Pulses Exam: carotid (R): 2+, carotid (L): 2+, femoral (R): 2+, femoral (L): 2+, dorsalis-pedis (R): 2+, dorsalis-pedis (L): 2+ Neurologic Exam: alert, oriented x 3, cooperative, clinical education specialist II-XII nml as tested, sensation nml, No motor deficits Skin Exam: normal color, warm, No dry SpO2 Interpretation: normal SpO2: 96 Oxygen Delivery: Nasal Cannula - Course Nursing assessment & vital signs reviewed: Yes EKG Interpreted by Me: Sinus Rhythm, NORMAL AXIS, Non-specific ST Changes - Radiology Exams Chest X-ray Interpretation: Reviewed by me, Infiltrates (bilateral similar to september and july this year but some increase) Ordered Tests: Active Orders 24 hr Category Date Time Status Self Storage Manager STAT Care 01/04/18 22:09 Active Clean Catch Urine Specimen STAT Care 01/04/18 22:08 Active EKG-ER Only STAT Care 01/04/18 22:08 Active IV Insertion STAT Care 01/04/18 22:08 Active Oxygen-ED Only NASAL CANNULA 3 lpm Care 01/04/18 22:08 Active Pulse Oximetry (ED) STAT Care 01/04/18 22:08 Active CHEST 1 VIEW (PORTABLE) Stat Exams 01/04/18 22:09 Taken AMYLASE Stat Lab 01/04/18 22:00 Completed CBC W DIFF Stat Lab 01/04/18 22:00 Completed CK-Creatinine Phosphokinase Stat Lab 01/04/18 22:00 Completed CMP Stat Lab 01/04/18 22:00 Completed D-DIMER QUANTITATION Stat Lab 01/04/18 22:00 Completed HCG QUALITATIVE,SERUM Stat Lab 01/04/18 22:00 Completed LIPASE Stat Lab 01/04/18 22:00 Completed Lactic Acid Stat Lab 01/04/18 22:08 Completed NT PRO BNP Stat Lab 01/04/18 22:00 Completed TROPONIN Q3H Lab 01/04/18 22:00 Completed TROPONIN Q3H Lab 01/05/18 01:34 Received TROPONIN Q3H Lab 01/05/18 04:15 Ordered TROPONIN Q3H Lab 01/05/18 07:15 Ordered TROPONIN Q3H Lab 01/05/18 10:15 Ordered UA W/ MICROSCOPIC Stat Lab 01/04/18 22:10 Completed Medication Summary Generic Name Dose Route Start Last Admin Trade Name Freq PRN Reason Stop Dose Admin Sodium Chloride 1,000 mls @ 100 mls/hr 01/04/18 22:15 01/04/18 22:27 Sodium Chloride 0.9% 1000 Ml IV 02/03/18 22:14 100 mls/hr .Q10H KRISSY Administration Discontinued Medications Generic Name Dose Route Start Last Admin Trade Name Freq PRN Reason Stop Dose Admin Ceftriaxone Sodium/Dextrose 1 g in 50 mls @ 100 mls/hr 01/04/18 22:46 23:21 Rocephin 1 Gm-D5w 50 Ml Bag IV 01/04/18 23:15 100 mls/hr STAT STA Administration Ceftriaxone Sodium/Dextrose Confirm 01/04/18 23:18 Rocephin 1 Gm-D5w 50 Ml Bag Administered 01/04/18 23:19 Dose 1 g in 50 mls @ ud IV .STK-MED ONE Lorazepam 1 mg 01/04/18 22:11 01/04/18 22:26 Ativan 1 Mg PO 01/04/18 22:12 1 mg STAT ONE Administration Lorazepam Confirm 01/04/18 22:14 Ativan 1 Mg Administered 01/04/18 22:15 Dose 1 mg .ROUTE .STK-MED ONE Methylprednisolone Sodium Succinate 125 mg 01/04/18 22:20 01/04/18 22:27 Solu-Medrol 125 Mg IV 01/04/18 22:21 125 mg STAT ONE Administration Methylprednisolone Sodium Succinate Confirm 01/04/18 22:23 Solu-Medrol 125 Mg Administered 01/04/18 22:24 Dose 125 mg .ROUTE .STK-MED ONE Nitroglycerin 0.4 mg 01/04/18 22:11 Nitrostat 0.4 Mg (Ed) SL 01/04/18 22:12 STAT ONE Lab/Rad Data: Laboratory Result Diagrams 01/04/18 22:00 01/04/18 22:00 Laboratory Results 01/04/18 01/04/18 01/04/18 Range/Units 22:27 22:10 22:08 WBC (4.0-10.5) K/mm3 RBC (4.1-5.4) M/mm3 Hgb (12.0-16.0) gm/dl Hct (35-47) % MCV (78-100) fl MCH (26-32) pg MCHC (32-36) g/dl RDW (11.5-14.0) % Plt Count (150-450) K/mm3 MPV (6-9.5) fl Gran % (36.0-66.0) % Eos # (Auto) (0-0.5) Absolute Lymphs (auto) (1.0-4.6) Absolute Monos (auto) (0.0-1.3) Lymphocytes % (24.0-44.0) % Monocytes % (0.0-12.0) % Eosinophils % (0.00-5.0) % Basophils % (0.0-0.4) % Absolute Granulocytes (1.4-6.9) Basophils # (0-0.4) D-Dimer (215-500) ng/mL Sodium (137-145) mmol/L Potassium (3.5-5.1) mmol/L Chloride (98-107) mmol/L Carbon Dioxide (22-30) mmol/L Anion Gap (5-15) MEQ/L BUN (7-17) mg/dL Creatinine (0.52-1.04) mg/dL Estimated GFR ML/MIN Glucose (74-106) mg/dL Lactic Acid 1.7 (0.4-2.0) Calcium (8.4-10.2) mg/dL Total Bilirubin (0.2-1.3) mg/dL AST (14-36) U/L ALT (0-35) U/L Alkaline Phosphatase (38-126) U/L Creatine Kinase (30-135) U/L Troponin I (0.000-0.034) ng/mL NT-Pro-B Natriuret Pep (0-900) pg/mL Serum Total Protein (6.3-8.2) g/dL Albumin (3.5-5.0) g/dL Amylase (30-110) U/L Lipase (23-300) U/L Serum , Qual (Negative) Ur Collection Type VOID Urine Color LT.YELLOW (YELLOW) Urine Appearance CLEAR (CLEAR) Urine pH 7.0 (5-6) Ur Specific Erwin 1.005 (1.005-1.025) Urine Protein NEGATIVE (Negative) Urine Ketones NEGATIVE (NEGATIVE) Urine Blood 250 (0-5) Keon/ul Urine Nitrite NEGATIVE (NEGATIVE) Urine Bilirubin NEGATIVE (NEGATIVE) Urine Urobilinogen NORMAL (0-1) mg/dL Ur Leukocyte Esterase NEGATIVE (NEGATIVE) Urine Microscopic RBC 5-10 (0-2) /HPF Urine Microscopic WBC 0-2 (0-5) /HPF Ur Epithelial Cells MODERATE (FEW) /HPF Urine Bacteria FEW (NEGATIVE) /HPF Urine Mucus SLIGHT (NEGATIVE) /HPF Urine Culture Reflexed NO (NO) Urine Glucose NEGATIVE (NEGATIVE) mg/dL Influenza Type A Ag NEGATIVE (NEGATIVE) Influenza Type B Ag NEGATIVE (NEGATIVE) RSV (PCR) NEGATIVE (Negative) Specimen Received 01/04/18220901/04/18 01/04/18 01/04/18 Range/Units 22:00 22:00 22:00 WBC (4.0-10.5) K/mm3 RBC (4.1-5.4) M/mm3 Hgb (12.0-16.0) gm/dl Hct (35-47) % MCV (78-100) fl MCH (26-32) pg MCHC (32-36) g/dl RDW (11.5-14.0) % Plt Count (150-450) K/mm3 MPV (6-9.5) fl Gran % (36.0-66.0) % Eos # (Auto) (0-0.5) Absolute Lymphs (auto) (1.0-4.6) Absolute Monos (auto) (0.0-1.3) Lymphocytes % (24.0-44.0) % Monocytes % (0.0-12.0) % Eosinophils % (0.00-5.0) % Basophils % (0.0-0.4) % Absolute Granulocytes (1.4-6.9) Basophils # (0-0.4) D-Dimer 303 (215-500) ng/mL Sodium (137-145) mmol/L Potassium (3.5-5.1) mmol/L Chloride (98-107) mmol/L Carbon Dioxide (22-30) mmol/L Anion Gap (5-15) MEQ/L BUN (7-17) mg/dL Creatinine (0.52-1.04) mg/dL Estimated GFR ML/MIN Glucose (74-106) mg/dL Lactic Acid (0.4-2.0) Calcium (8.4-10.2) mg/dL Total Bilirubin (0.2-1.3) mg/dL AST (14-36) U/L ALT (0-35) U/L Alkaline Phosphatase (38-126) U/L Creatine Kinase (30-135) U/L Troponin I < 0.012 (0.000-0.034) ng/mL NT-Pro-B Natriuret Pep (0-900) pg/mL Serum Total Protein (6.3-8.2) g/dL Albumin (3.5-5.0) g/dL Amylase (30-110) U/L Lipase (23-300) U/L Serum , Qual NEGATIVE (Negative) Ur Collection Type Urine Color (YELLOW) Urine Appearance (CLEAR) Urine pH (5-6) Ur Specific Erwin (1.005-1.025) Urine Protein (Negative) Urine Ketones (NEGATIVE) Urine Blood (0-5) Keon/ul Urine Nitrite (NEGATIVE) Urine Bilirubin (NEGATIVE) Urine Urobilinogen (0-1) mg/dL Ur Leukocyte Esterase (NEGATIVE) Urine Microscopic RBC (0-2) /HPF Urine Microscopic WBC (0-5) /HPF Ur Epithelial Cells (FEW) /HPF Urine Bacteria (NEGATIVE) /HPF Urine Mucus (NEGATIVE) /HPF Urine Culture Reflexed (NO) Urine Glucose (NEGATIVE) mg/dL Influenza Type A Ag (NEGATIVE) Influenza Type B Ag (NEGATIVE) RSV (PCR) (Negative) Specimen Received 01/04/18 01/04/18 Range/Units 22:00 22:00 WBC 12.5 H (4.0-10.5) K/mm3 RBC 4.78 (4.1-5.4) M/mm3 Hgb 15.1 (12.0-16.0) gm/dl Hct 45.9 (35-47) % MCV 96.0 (78-100) fl MCH 31.6 (26-32) pg MCHC 32.9 (32-36) g/dl RDW 13.2 (11.5-14.0) % Plt Count 333 (150-450) K/mm3 MPV 9.2 (6-9.5) fl Gran % 73.1 H (36.0-66.0) % Eos # (Auto) 0.07 (0-0.5) Absolute Lymphs (auto) 2.53 (1.0-4.6) Absolute Monos (auto) 0.71 (0.0-1.3) Lymphocytes % 20.3 L (24.0-44.0) % Monocytes % 5.7 (0.0-12.0) % Eosinophils % 0.6 (0.00-5.0) % Basophils % 0.3 (0.0-0.4) % Absolute Granulocytes 9.12 H (1.4-6.9) Basophils # 0.04 (0-0.4) D-Dimer (215-500) ng/mL Sodium 141 (137-145) mmol/L Potassium 4.0 (3.5-5.1) mmol/L Chloride 104 (98-107) mmol/L Carbon Dioxide 27 (22-30) mmol/L Anion Gap 13.7 (5-15) MEQ/L BUN 11 (7-17) mg/dL Creatinine 0.61 (0.52-1.04) mg/dL Estimated GFR > 60.0 ML/MIN Glucose 115 H (74-106) mg/dL Lactic Acid (0.4-2.0) Calcium 9.8 (8.4-10.2) mg/dL Total Bilirubin 0.40 (0.2-1.3) mg/dL AST 22 (14-36) U/L ALT 23 (0-35) U/L Alkaline Phosphatase 89 (38-126) U/L Creatine Kinase 170 H (30-135) U/L Troponin I (0.000-0.034) ng/mL NT-Pro-B Natriuret Pep 37.6 (0-900) pg/mL Serum Total Protein 7.4 (6.3-8.2) g/dL Albumin 4.6 (3.5-5.0) g/dL Amylase 48 (30-110) U/L Lipase 65 (23-300) U/L Serum , Qual (Negative) Ur Collection Type Urine Color (YELLOW) Urine Appearance (CLEAR) Urine pH (5-6) Ur Specific Erwin (1.005-1.025) Urine Protein (Negative) Urine Ketones (NEGATIVE) Urine Blood (0-5) Keon/ul Urine Nitrite (NEGATIVE) Urine Bilirubin (NEGATIVE) Urine Urobilinogen (0-1) mg/dL Ur Leukocyte Esterase (NEGATIVE) Urine Microscopic RBC (0-2) /HPF Urine Microscopic WBC (0-5) /HPF Ur Epithelial Cells (FEW) /HPF Urine Bacteria (NEGATIVE) /HPF Urine Mucus (NEGATIVE) /HPF Urine Culture Reflexed (NO) Urine Glucose (NEGATIVE) mg/dL Influenza Type A Ag (NEGATIVE) Influenza Type B Ag (NEGATIVE) RSV (PCR) (Negative) Specimen Received - Progress Progress: improved, re-examined Air Movement: good Progress Note: 01/04/18 23:56 although pts CP resolved , we have discussed with her that her heart score is moderate and that there is still some risk that she could have a cardiac event including and that further workup is advised including observation tonight to exclude this , but she declines admission/observation at this time and wishes DC to f/u PCP for workup as outpt. 01/05/18 00:24 discussed with pt her heart score of 4 which even with 2 neg trops would advise observation overnight and that the estimated risk from that stratification has been 13% ( one in 7) for heart attack which could include , she understands and has the capacity to make this choice. 01/05/18 01:16 awaiting second trop now and this will place us passed 4 hours to complete. Blood Culture(s) Obtained: No Counseled pt/family regarding: lab results, diagnosis, need for follow-up, rad results - Departure Time of Disposition: 02:08 Departure Disposition: AMA Clinical Impression: COPD exacerbation, Hematuria, Chest pain Condition: Good Critical Care Time: No Referrals: PAUL STEVENSON [Primary Care Provider] - Instructions: Chronic Obstructive Pulmonary Disease, Blood in the Urine ( Hematuria) in Adults, Chest Pain (DC), Exacerbation of COPD (DC) Additional Instructions: You have symptoms of exacerbation of your lung disease COPD , but some symptoms also consistent with heart disease which needs to be worked up. Your risk factors are at a level for which an overnight observation is advised, as previously discussed. we understand that you have chosen to followup with your Dr and have further workup as an outpatient. You also have some blood in the urine to followup with your dr. You may return at any time - meanwhile for any concerns. Prescriptions: Amoxicillin/Potassium Clav [Augmentin 875-125 Tablet] 875 mg PO BID #20 tablet Methylprednisolone Packet [Medrol Dosepack] 4 mg PO UD #30 packet
[2018-01-04] MEDS ORDERED: Nitrostat 0.4 MG (ED) SL ONE (22:11)
[2018-01-04] MEDS ORDERED: Ativan 1 MG PO ONE (22:11)
[2018-01-04] MEDS ORDERED: Ativan 1 MG ONE (22:14)
[2018-01-04] MEDS ORDERED: Sodium Chloride 0.9% 1000 ML 1,000 ML ONE (22:14)
[2018-01-04] MEDS ORDERED: Sodium Chloride 0.9% 1000 ML 1,000 ML IV SCH (22:15)
[2018-01-04] MEDS ORDERED: solu-MEDROL 125 MG IV ONE (22:20)
[2018-01-04] MEDS ORDERED: solu-MEDROL 125 MG ONE (22:23)
[2018-01-04 22:24] LABS: BASOPHIL % 0.3 % (0.0-0.4); Basophil (Absolute #) 0.04 (0-0.4); Eosinophil % 0.6 % (0.00-5.0); Eosinophil (Absolute #) 0.07 (0-0.5); Granulocyte Absolute (ANC) 9.12 (1.4-6.9); Granulocytes % 73.1 % (36.0-66.0); Hematocrit 45.9 % (35-47); Hemoglobin 15.1 gm/dl (12.0-16.0); Lymphocyte (Absolute #) 2.53 (1.0-4.6); Lymphocytes % 20.3 % (24.0-44.0); Mean Corpuscular Hemoglobin 31.6 pg (26-32); Mean Corpuscular Hgb Concent. 32.9 g/dl (32-36); Mean Platelet Volume 9.2 fl (6-9.5); Monocyte (Absolute #) 0.71 (0.0-1.3); Monocytes % 5.7 % (0.0-12.0); Platelet Count 333 K/mm3 (150-450); Red Blood Count 4.78 M/mm3 (4.1-5.4); Red Cell Distribution Width 13.2 % (11.5-14.0); White Blood Count 12.5 K/mm3 (4.0-10.5)
[2018-01-04 22:38] LABS: ALBUMIN 4.6 g/dL (3.5-5.0); ALKALINE PHOSPHATASE 89 U/L (38-126); AMYLASE 48 U/L (30-110); ANION GAP 13.7 MEQ/L (5-15); BLOOD UREA NITROGEN 11 mg/dL (7-17); CHLORIDE 104 mmol/L (98-107); CK-Creatinine Phosphokinase 170 U/L (30-135); Calcium 9.8 mg/dL (8.4-10.2); Carbon Dioxide 27 mmol/L (22-30); Creatinine 1 0.61 mg/dL (0.52-1.04); Glucose 115 mg/dL (74-106); LIPASE 65 U/L (23-300); NT PRO BNP 37.6 pg/mL (0-900); SGOT/AST 22 U/L (14-36); SGPT/ALT 23 U/L (0-35); SODIUM 141 mmol/L (137-145); Total Protein 7.4 g/dL (6.3-8.2)
[2018-01-04] MEDS ORDERED: ROCEPHIN 1 Gm-D5w 50 ml Bag** 1 G/50 ML IVPB IV STA (22:46)
[2018-01-04 22:48] LABS: Appearance CLEAR (CLEAR); Bilirubin NEGATIVE (NEGATIVE); Blood 250 Ery/ul (0-5); Glucose NEGATIVE (NEGATIVE); Ketones NEGATIVE (NEGATIVE); Leukocyte Esterase NEGATIVE (NEGATIVE); Mucus SLIGHT /HPF (NEGATIVE); Nitrite NEGATIVE (NEGATIVE); Protein,Urine Dip NEGATIVE (Negative); Specific Gravity 1.005 (1.005-1.025); Urobilinogen NORMAL mg/dL (0-1)
[2018-01-04 22:49] LABS: Bacteria FEW /HPF (NEGATIVE); Epithelial Cells MODERATE /HPF (FEW); WBC 0-2 /HPF (0-5)
[2018-01-04 23:02] LABS: INFLUENZA A NEGATIVE (NEGATIVE); INFLUENZA B NEGATIVE (NEGATIVE); RESPIRATORY SYNCTIAL VIRUS NEGATIVE (Negative)
[2018-01-04] MEDS ORDERED: ROCEPHIN 1 Gm-D5w 50 ml Bag** 1 G/50 ML IVPB IV ONE (23:18)
[2018-01-05 02:45] VITALS: BP 125/69; PULSE 80; O2SAT 94
--- NOTE | 2018-01-05 07:32 | XRAY ---
Indication: Short of breath. History COPD. Comparison: September 30, 2017. Portable chest remains hyperinflated with bibasilar fibrosis/scarring, left costophrenic angle blunting, and left upper lobe calcified granuloma. Remaining heart and lungs unremarkable. Bony thorax intact again with mild degenerative changes. Impression: Stable nonacute hyperinflated chest with chronic features.
== END 2018-01-05 02:35 | disposition home or self-care (01) ==
LOC: ED 21:24
DX: J44.1 Chronic obstructive pulmonary disease with (acute) exacerbation (principal); R31.9 Hematuria, unspecified; R07.9 Chest pain, unspecified; Z99.81 Dependence on supplemental oxygen; Z79.82 Long term (current) use of aspirin; Z79.899 Other long term (current) drug therapy
CPT/HCPCS: 36000; 36415; 71045; 80053; 81000; 82150; 82550; 83605; 83690; 83880; 84484; 84703; 85025; 85379; 87631; 93005; 93041; 96360; 96365; 96374; 99284; J0696; J2930; A9270-GY

== ENCOUNTER 2018-05-13 19:18 | Emergency (ER) | payer OTHER ==
--- NOTE | 2018-05-13 19:31 | ERPHSYRPT ---
- History of Present Illness Time Seen by Provider: 05/13/18 19:20 Source: patient Exam Limitations: no limitations Physician History: 53 y/o white female with h/o copd presents with increasing sob and wheezing. pt called her office copy selector dr. starkey earlier today and received rx for steroids and keflex. pt noticed a pain right lateral lower ribs and she became concerned about pneumonia. she therefore came in for cxr just to be sure she does or does not have pneumonia. she does not have any ant chest pain. she is fine taking care of issues as long as she does not have a pneumonia. Timing/Duration: today Activities at Onset: none Severity of Dyspnea-Max: mild Severity of Dyspnea-Current: mild Possible Cause: occasional episodes Modifying Factors: Improves With: albuterol nebulizer (improves) Associated Symptoms: cough, wheezing Allergies/Adverse Reactions: naproxen Allergy (Mild, Verified 01/04/18 21:36) Nausea Sulfa (Sulfonamide Antibiotics) Allergy (Verified 01/04/18 21:36) Home Medications: Aspirin 81 gm Chew [Baby Aspirin 81 mg Chew] 243 mg PO DAILY 07/28/17 [ History] Metoprolol Succinate 50 mg [Toprol Xl 50 MG] 50 mg PO DAILY 07/28/17 [ History] Albuterol Sulfate [Ventolin Hfa] 90 mcg IH Q4HPRN PRN 09/30/17 [History] Hx Tetanus, Diphtheria Vaccination/Date Given: No Hx Influenza Vaccination/Date Given: No Hx Pneumococcal Vaccination/Date Given: No - Review of Systems Constitutional: No Symptoms Eyes: No Symptoms Ears, Nose, & Throat: No Symptoms Respiratory: Cough, Dyspnea (mild), Wheezing Cardiac: No Symptoms, No Chest Pain, No Palpitations, No Syncope Abdominal/Gastrointestinal: No Symptoms, No Abdominal Pain, No Nausea, No Vomiting, No Diarrhea Genitourinary Symptoms: No Symptoms, No Dysuria, No Frequency, No Hematuria Musculoskeletal: No Symptoms Skin: No Symptoms Neurological: No Symptoms Psychological: No Symptoms Endocrine: No Symptoms Hematologic/Lymphatic: No Symptoms Immunological/Allergic: No Symptoms All Other Systems: Reviewed and Negative - Past Medical History Pertinent Past Medical History: Yes Neurological History: No Pertinent History ENT History: No Pertinent History Cardiac History: No Pertinent History, Hypertension Respiratory History: Asthma, COPD Endocrine Medical History: No Pertinent History Musculoskeletal History: No Pertinent History GI Medical History: No Pertinent History History: No Pertinent History Psycho-Social History: No Pertinent History Female Reproductive Disorders: Other Other Medical History: Cervical dysplasia - Past Surgical History Past Surgical History: Yes Neuro Surgical History: No Pertinent History Cardiac: No Pertinent History Respiratory: No Pertinent History Gastrointestinal: No Pertinent History Genitourinary: No Pertinent History Musculoskeletal: No Pertinent History Female Surgical History: Hysterectomy Other Surgical History: TONSILECTOMY - Social History Smoking Status: Former smoker How long have you smoked: 40years Exposure to second hand smoke: Yes Drug Use: none Patient Lives Alone: No - Physical Exam General Appearance: no apparent distress, alert, anxiety Eye Exam: PERRL/EOMI Ears, Nose, Throat Exam: hearing grossly normal Neck Exam: normal inspection, non-tender, supple, full range of motion Respiratory Exam: airway intact, wheezing (mild bilat), No chest tenderness, No respiratory distress, No accessory muscle use, No rhonchi, No stridor Cardiovascular/Chest Exam: normal heart sounds, regular rate/rhythm Abdominal/Gastrointestinal Exam: soft, normal bowel sounds, No tenderness, No guarding, No rebound Rectal Exam: not done Extremity Exam: non-tender, normal range of motion, normal inspection Neurologic Exam: alert, oriented x 3, cooperative, postal clerk II-XII nml as tested Skin Exam: normal color, warm, dry Lymphatic Exam: No adenopathy SpO2 Interpretation: normal Oxygen Delivery: Room Air - Course Nursing assessment & vital signs reviewed: Yes EKG Interpreted by Me: RATE (80), Sinus Rhythm, NORMAL AXIS, NORMAL INTERVALS, NORMAL QRS, Other (no change from ekg dated 01/04/18) Ordered Tests: Active Orders 24 hr Category Date Time Status EKG-ER Only STAT Care 05/13/18 19:35 Active CHEST 1 VIEW (PORTABLE) Stat Exams 05/13/18 19:35 Taken Peak Expiratory Flow Rate ONCE RT 05/13/18 19:53 Active Respiratory Therapy Assessment DAILY RT 05/13/18 19:54 Active Medication Summary Generic Name Dose Route Start Last Admin Trade Name Freq PRN Reason Stop Dose Admin Ceftriaxone Sodium/Dextrose 1 g in 50 mls @ 100 mls/hr 05/13/18 19:35 Rocephin 1 Gm-D5w 50 Ml Bag IV 05/13/18 20:04 STAT STA Discontinued Medications Generic Name Dose Route Start Last Admin Trade Name Sanju PRN Reason Stop Dose Admin Albuterol/Ipratropium Confirm 05/13/18 19:48 Duoneb 0.5-3 Mg/3 Ml Neb Administered 05/13/18 19:49 Dose 3 ml IH .STK-MED ONE Albuterol/Ipratropium 3 ml 05/13/18 19:53 Duoneb 0.5-3 Mg/3 Ml Neb IH 05/13/18 19:54 STAT ONE Methylprednisolone Sodium Succinate 125 mg 05/13/18 19:35 Solu-Medrol 125 Mg IV 05/13/18 19:36 STAT ONE - Progress Progress: improved Air Movement: good Progress Note: 05/13/18 19:56 cxr-?left basilar atelectasis vs early infiltrate. Blood Culture(s) Obtained: No Antibiotics given: Yes Counseled pt/family regarding: diagnosis, need for follow-up, rad results - Departure Time of Disposition: 19:59 Departure Disposition: Home Clinical Impression: Pulmonary infiltrate Condition: Stable Critical Care Time: No Referrals: PAUL STEVENSON [Primary Care Provider] - Additional Instructions: stop keflex. continue steroids as prescribed. follow up with dr. starkey for further management. Prescriptions: Azithromycin 250 mg [Zithromax 250 MG TABLET] 250 mg PO ZPACK #6 tablet
[2018-05-13] MEDS ORDERED: ROCEPHIN 1 Gm-D5w 50 ml Bag** 1 G/50 ML IVPB IV STA (19:35)
[2018-05-13] MEDS ORDERED: solu-MEDROL 125 MG IV ONE (19:35)
[2018-05-13] MEDS ORDERED: DUONEB 0.5-3 MG/3 ml Neb IH ONE ×2 (19:48→19:53)
[2018-05-13 20:02] VITALS: O2SAT 96
[2018-05-13] MEDS ORDERED: ROCEPHIN 1 Gm-D5w 50 ml Bag** 1 G/50 ML IVPB IV ONE (20:06)
[2018-05-13] MEDS ORDERED: solu-MEDROL 125 MG ONE (20:06)
[2018-05-13 20:40] VITALS: BP 100/50; PULSE 70
--- NOTE | 2018-05-14 09:02 | XRAY ---
Indication: Right chest wall pain. Cough. Comparison: January 04, 2018. Portable chest again hyperinflated with left upper lobe calcified granuloma. Heart is not enlarged. Bony thorax intact again with mild degenerative changes. No new/acute findings. Impression: Nonacute hyperinflated chest with chronic features.
== END 2018-05-13 20:47 | disposition home or self-care (01) ==
LOC: ED 19:18
DX: R91.8 Other nonspecific abnormal finding of lung field (principal); R07.81 Pleurodynia; Z79.82 Long term (current) use of aspirin; Z79.899 Other long term (current) drug therapy
CPT/HCPCS: 71045; 93005; 94150; 94640; 96365; 96374; 99284; J0696; J2930; A9270-GY

== ENCOUNTER 2018-05-14 22:21 | Emergency (ER) | payer OTHER ==
[2018-05-14] MEDS ORDERED: PROVENTIL Solution 2.5 MG/0.5 ML IH ONE (22:43)
[2018-05-14] MEDS ORDERED: Sodium Chloride 3 ML UD NEBULES IH ONE (22:43)
--- NOTE | 2018-05-14 22:43 | ERPHSYRPT ---
- History of Present Illness Time Seen by Provider: 05/14/18 22:37 Source: patient, EMS Exam Limitations: no limitations Physician History: The patient is a 53-year-old female brought in by ambulance from home and she complains of worsening shortness of breath. She was seen yesterday evening in this ER by Dr. Salas for the same complaint. Yesterday she only wanted a chest x-ray, steroids, and antibiotics that were recommended by her youth nutritional monitor, Dr. Urias. No labs were done yesterday. She has a history of anxiety and now is worried that she has a pulmonary embolism because a friend had a PE in the past. When she stands up to walk, she becomes very short of breath. Yesterday she was given a steroid injection, Rocephin, and azithromycin. The ambulance crew jason gave her Solu-Medrol 125 mg, DuoNeb, and albuterol neb. Pt received an influenza vaccination this year. Her past medical history is significant for COPD, HTN, and anxiety. Timing/Duration: day(s) (2), gradual onset, worse Activities at Onset: none Severity of Dyspnea-Max: moderate Severity of Dyspnea-Current: moderate Possible Cause: frequent episodes Modifying Factors: Improves With: albuterol nebulizer, exertion Associated Symptoms: anxiety, chest pain/discomfort (right sided chest pain), wheezing Allergies/Adverse Reactions: naproxen Allergy (Mild, Verified 05/14/18 22:49) Nausea Sulfa (Sulfonamide Antibiotics) Allergy (Verified 05/14/18 22:49) Home Medications: Aspirin 81 gm Chew [Baby Aspirin 81 mg Chew] 243 mg PO DAILY 07/28/17 [ History] Metoprolol Succinate 50 mg [Toprol Xl 50 MG] 50 mg PO DAILY 07/28/17 [ History] Albuterol Sulfate [Ventolin Hfa] 90 mcg IH Q4HPRN PRN 09/30/17 [History] Hx Tetanus, Diphtheria Vaccination/Date Given: No Hx Influenza Vaccination/Date Given: No Hx Pneumococcal Vaccination/Date Given: No - Review of Systems Constitutional: No Fever, No Chills Eyes: No Symptoms Ears, Nose, & Throat: No Symptoms Respiratory: Dyspnea, Dyspnea on Exertion (OZUNA), Wheezing Cardiac: Chest Pain Abdominal/Gastrointestinal: No Abdominal Pain, No Nausea, No Vomiting, No Diarrhea Genitourinary Symptoms: No Dysuria Musculoskeletal: No Back Pain, No Neck Pain Skin: No Rash Neurological: No Dizziness, No Focal Weakness, No Sensory Changes Psychological: No Symptoms Endocrine: No Symptoms Hematologic/Lymphatic: No Symptoms Immunological/Allergic: No Symptoms All Other Systems: Reviewed and Negative - Past Medical History Pertinent Past Medical History: Yes Neurological History: No Pertinent History ENT History: No Pertinent History Cardiac History: No Pertinent History, Hypertension Respiratory History: Asthma, COPD Endocrine Medical History: No Pertinent History Musculoskeletal History: No Pertinent History GI Medical History: No Pertinent History History: No Pertinent History Psycho-Social History: No Pertinent History Female Reproductive Disorders: Other Other Medical History: Cervical dysplasia - Past Surgical History Past Surgical History: Yes Neuro Surgical History: No Pertinent History Cardiac: No Pertinent History Respiratory: No Pertinent History Gastrointestinal: No Pertinent History Genitourinary: No Pertinent History Musculoskeletal: No Pertinent History Female Surgical History: Hysterectomy Other Surgical History: TONSILECTOMY - Social History Smoking Status: Former smoker How long have you smoked: 40years Exposure to second hand smoke: Yes Drug Use: none Patient Lives Alone: No - Nursing Vital Signs Nursing Vital Signs: Initial Vital Signs Temperature 98.1 F 05/14/18 22:36 Pulse Rate 105 H 05/14/18 22:36 Respiratory Rate 18 05/14/18 22:36 Blood Pressure 125/79 05/14/18 22:36 O2 Sat by Pulse Oximetry 95 05/14/18 22:36 Pain Scale Pain Intensity 0 - Physical Exam General Appearance: moderate distress, obese Eye Exam: PERRL/EOMI Ears, Nose, Throat Exam: hearing grossly normal Neck Exam: normal inspection, supple Respiratory Exam: diminished breath sounds, prolonged expirations, wheezing Cardiovascular/Chest Exam: normal heart sounds, regular rate/rhythm Abdominal/Gastrointestinal Exam: soft, No tenderness, No distention, No mass Rectal Exam: not done Extremity Exam: non-tender, normal range of motion, normal inspection, no calf tenderness, no pedal edema Neurologic Exam: alert, oriented x 3, cooperative, curtain framer II-XII nml as tested, sensation nml, No motor deficits Skin Exam: normal color, warm, No dry SpO2 Interpretation: borderline oxygenation Oxygen Delivery: Nasal Cannula (2L) - Course EKG Interpreted by Me: RATE, Sinus Rhythm, NORMAL AXIS, NORMAL INTERVALS, NORMAL QRS, NORMAL ST-T, Other (comp EKG 05/13/18.) - Radiology Exams Chest X-ray Interpretation: Interpreted by me, Negative (stable 2V chest with JEANINE granuloma. comp 1V chest 05/13/18.) Ordered Tests: Active Orders 24 hr Category Date Time Status Reporting Consultant STAT Care 05/14/18 22:39 Active EKG-ER Only STAT Care 05/14/18 22:37 Active IV Insertion STAT Care 05/14/18 22:37 Active Oxygen-ED Only NASAL CANNULA 2 lpm Care 05/14/18 22:37 Active Pulse Oximetry (ED) STAT Care 05/14/18 22:37 Active CHEST 2 VIEWS (PA AND LAT) Stat Exams 05/14/18 22:38 Taken ARTERIAL BLOOD GASES Stat Lab 05/14/18 23:10 Completed CBC W DIFF Stat Lab 05/14/18 22:59 Completed CMP Stat Lab 05/14/18 22:59 Completed D-DIMER QUANTITATION Stat Lab 05/14/18 22:59 Completed Lactic Acid Stat Lab 05/14/18 22:58 Completed Manual Differential NC Stat Lab 05/14/18 22:59 Completed NT PRO BNP Stat Lab 05/14/18 22:59 Completed TROPONIN Q3H Lab 05/14/18 22:59 Completed TROPONIN Q3H Lab 05/15/18 01:45 Ordered TROPONIN Q3H Lab 05/15/18 04:45 Ordered TROPONIN Q3H Lab 05/15/18 07:45 Ordered TROPONIN Q3H Lab 05/15/18 10:45 Ordered Peak Expiratory Flow Rate ONCE RT 05/14/18 22:45 Active Respiratory Nebulizer STAT RT 05/14/18 22:38 Active Medication Summary Discontinued Medications Generic Name Dose Route Start Last Admin Trade Name Freq PRN Reason Stop Dose Admin Albuterol Sulfate 10 mg 05/14/18 22:37 05/14/18 22:45 Proventil 2.5 Mg/3 Ml Neb IH 05/14/18 22:38 10 mg STAT ONE Administration Albuterol Sulfate Confirm 05/14/18 22:43 Proventil Solution 2.5 Mg/0.5 Ml Administered 05/14/18 22:44 Dose 10 mg IH .STK-MED ONE Sodium Chloride Confirm 05/14/18 22:43 Sodium Chloride 3 Ml Ud Nebules Administered 05/14/18 22:44 Dose 3 ml IH .STK-MED ONE Lab/Rad Data: Laboratory Result Diagrams 05/14/18 22:59 05/14/18 22:59 Laboratory Results 05/14/18 05/14/18 05/14/18 Range/Units 23:10 22:59 22:59 WBC (4.0-10.5) K/mm3 RBC (4.1-5.4) M/mm3 Hgb (12.0-16.0) gm/dl Hct (35-47) % MCV (78-100) fl MCH (26-32) pg MCHC (32-36) g/dl RDW (11.5-14.0) % Plt Count (150-450) K/mm3 MPV (6-9.5) fl Absolute Granulocytes (1.4-6.9) Segmented Neutrophils (36.0-66.0) % Band Neutrophils (0.0-2.0) % Lymphocytes (Manual) (24-44) % Eosinophils (Manual) (0.00-3.0) % Atypical Lymphocytes % Platelet Estimate (NORMAL) RBC Morphology D-Dimer < 215 L (215-500) ng/mL Puncture Site RIGHT BRACHIAL pCO2 52 H (35-45) mmHg pO2 61 L (75-100) mmHg Base Excess 4.2 H (-2.0-2.0) O2 Saturation 88.2 L (94-100) g/dF ABG pH 7.38 (7.35-7.45) ABG HCO3 30.8 H* (22-28) ABG O2 Sat (Measured) 93.5 L (95-100) % Scott Test NOT APPLICABLE A-a Gradient 131 a/A Ratio 0.32 Hemoglobin 15.5 Carboxyhemoglobin 4.7 (0.0-6.9) % THgb Methemoglobin 1.0 L (1.4-1.5) % Temperature 37.0 C POC O2 Flow Rate 36 % Sodium (137-145) mmol/L Potassium 3.5 (3.5-5.1) mmol/L Chloride (98-107) mmol/L Carbon Dioxide (22-30) mmol/L Anion Gap (5-15) MEQ/L BUN (7-17) mg/dL Creatinine (0.52-1.04) mg/dL Estimated GFR ML/MIN Glucose (74-106) mg/dL Lactic Acid (0.4-2.0) Calcium (8.4-10.2) mg/dL Total Bilirubin (0.2-1.3) mg/dL AST (14-36) U/L ALT (0-35) U/L Alkaline Phosphatase (38-126) U/L Troponin I < 0.012 (0.000-0.034) ng/mL NT-Pro-B Natriuret Pep (0-900) pg/mL Serum Total Protein (6.3-8.2) g/dL Albumin (3.5-5.0) g/dL 05/14/18 05/14/18 05/14/18 Range/Units 22:59 22:59 22:58 WBC 16.8 H (4.0-10.5) K/mm3 RBC 4.89 (4.1-5.4) M/mm3 Hgb 15.3 (12.0-16.0) gm/dl Hct 47.7 H (35-47) % MCV 97.5 (78-100) fl MCH 31.3 (26-32) pg MCHC 32.1 (32-36) g/dl RDW 13.3 (11.5-14.0) % Plt Count 348 (150-450) K/mm3 MPV 8.9 (6-9.5) fl Absolute Granulocytes 12.71 H (1.4-6.9) Segmented Neutrophils 74 H (36.0-66.0) % Band Neutrophils 1 (0.0-2.0) % Lymphocytes (Manual) 21 L (24-44) % Eosinophils (Manual) 1 (0.00-3.0) % Atypical Lymphocytes 3 % Platelet Estimate NORMAL (NORMAL) RBC Morphology NORMAL D-Dimer (215-500) ng/mL Puncture Site pCO2 (35-45) mmHg pO2 (75-100) mmHg Base Excess (-2.0-2.0) O2 Saturation (94-100) g/dF ABG pH (7.35-7.45) ABG HCO3 (22-28) ABG O2 Sat (Measured) (95-100) % Scott Test A-a Gradient a/A Ratio Hemoglobin Carboxyhemoglobin (0.0-6.9) % THgb Methemoglobin (1.4-1.5) % Temperature C POC O2 Flow Rate % Sodium 138 (137-145) mmol/L Potassium 3.7 (3.5-5.1) mmol/L Chloride 100 (98-107) mmol/L Carbon Dioxide 30 (22-30) mmol/L Anion Gap 11.4 (5-15) MEQ/L BUN 17 (7-17) mg/dL Creatinine 0.70 (0.52-1.04) mg/dL Estimated GFR > 60.0 ML/MIN Glucose 118 H (74-106) mg/dL Lactic Acid 1.1 (0.4-2.0) Calcium 9.6 (8.4-10.2) mg/dL Total Bilirubin 0.40 (0.2-1.3) mg/dL AST 24 (14-36) U/L ALT 26 (0-35) U/L Alkaline Phosphatase 95 (38-126) U/L Troponin I (0.000-0.034) ng/mL NT-Pro-B Natriuret Pep 53.5 (0-900) pg/mL Serum Total Protein 8.3 H (6.3-8.2) g/dL Albumin 4.4 (3.5-5.0) g/dL - Progress Progress: improved Air Movement: good Progress Note: 05/14/18 22:52 The patient refused the influenza swab. 05/15/18 00:54 Pt is feeling and breathing much better. Blood Culture(s) Obtained: No Antibiotics given: No Counseled pt/family regarding: lab results, diagnosis, need for follow-up, rad results - Departure Time of Disposition: 01:07 Departure Disposition: Home Clinical Impression: COPD exacerbation Condition: Stable Critical Care Time: No Referrals: PAUL STEVENSON [Primary Care Provider] - Instructions: Chronic Obstructive Pulmonary Disease Additional Instructions: You have a D COPD exacerbation. You were given Solu-Medrol 125 mg IV in the ambulance. You were also given a DuoNeb and albuterol neb in the ambulance. You were given an hour-long albuterol neb treatment in the ER. Your wheezing has improved significantly. You requested to go home and I agreed to this trial. Increase the prednisone to 60 mg every day for 5 days. Continue with the Z-Khari as originally prescribed. Take albuterol nebulizer treatments at home every 1-2 hours as needed. Follow-up with your primary medical doctor in one to 2 days if you have not improved. Prescriptions: Prednisone 20 mg [Deltasone 20 mg] 3 tab PO DAILY #15 tablet
[2018-05-14] MEDS: PROVENTIL 2.5 MG/3 ML NEB IH ONE (22:45)
[2018-05-14 23:04] LABS: Granulocyte Absolute (ANC) 12.71 (1.4-6.9); Hematocrit 47.7 % (35-47); Hemoglobin 15.3 gm/dl (12.0-16.0); Mean Cell Volume 97.5 fl (78-100); Mean Corpuscular Hemoglobin 31.3 pg (26-32); Mean Corpuscular Hgb Concent. 32.1 g/dl (32-36); Mean Platelet Volume 8.9 fl (6-9.5); Platelet Count 348 K/mm3 (150-450); Red Blood Count 4.89 M/mm3 (4.1-5.4); Red Cell Distribution Width 13.3 % (11.5-14.0); White Blood Count 16.8 K/mm3 (4.0-10.5)
[2018-05-14 23:16] LABS: A-aADO2 131; ABG HEMOGLOBIN 15.5; ABG POTASSIUM 3.5 (3.5-5.1); ABG SITE RIGHT BRACHIAL; ARTERIAL BLD GAS O2 SATURATION 93.5 % (95-100); ARTERIAL BLOOD GAS BASE EXCESS 4.2 (-2.0-2.0); ARTERIAL BLOOD GAS FIO2 36 %; ARTERIAL BLOOD GAS PCO2 52 mmHg (35-45); ARTERIAL BLOOD GAS PO2 61 mmHg (75-100); ARTERIAL BLOOD GAS pH 7.38 (7.35-7.45); CARBOXYHEMOGLOBIN 4.7 % THgb (0.0-6.9); HCO3- 30.8 (22-28); HGB O2 SAT 88.2 g/dF (94-100); paO2 pAO1 0.32
[2018-05-14 23:26] LABS: ALBUMIN 4.4 g/dL (3.5-5.0); ALKALINE PHOSPHATASE 95 U/L (38-126); ANION GAP 11.4 MEQ/L (5-15); BLOOD UREA NITROGEN 17 mg/dL (7-17); CHLORIDE 100 mmol/L (98-107); Calcium 9.6 mg/dL (8.4-10.2); Carbon Dioxide 30 mmol/L (22-30); Glucose 118 mg/dL (74-106); NT PRO BNP 53.5 pg/mL (0-900); Potassium 3.7 mmol/L (3.5-5.1); SGOT/AST 24 U/L (14-36); SGPT/ALT 26 U/L (0-35); SODIUM 138 mmol/L (137-145); Total Protein 8.3 g/dL (6.3-8.2)
[2018-05-14 23:59] LABS: ATYPICAL LYMPHS 3 %; BAND 1 % (0.0-2.0); Eosinophil 1 % (0.00-3.0); Lymphocytes 21 % (24-44); Neutrophils 74 % (36.0-66.0); Platelet Estimate NORMAL (NORMAL); Total Cells Counted 100
[2018-05-15 01:21] VITALS: BP 127/65; PULSE 92; O2SAT 94
--- NOTE | 2018-05-15 08:43 | XRAY ---
Indication: Short of breath. Comparison: One day earlier. Portable chest again demonstrates COPD, left base fibrosis/scarring, and left apical calcified granuloma. Heart is not enlarged. No new/acute findings.
== END 2018-05-15 01:50 | disposition home or self-care (01) ==
LOC: ED 22:21
DX: J44.1 Chronic obstructive pulmonary disease with (acute) exacerbation (principal); Z79.899 Other long term (current) drug therapy; F41.9 Anxiety disorder, unspecified; R07.9 Chest pain, unspecified
CPT/HCPCS: 36000; 36415; 36600; 71046; 80053; 82375; 82803; 83605; 83880; 84484; 85025; 85379; 93005; 93041; 94150; 94640; 99284

== ENCOUNTER 2018-09-27 14:16 | Emergency (ER) | payer OTHER ==
[2018-09-27 14:30] VITALS: PULSE 90; O2SAT 97
--- NOTE | 2018-09-27 14:44 | ERPHSYRPT ---
- History of Present Illness Time Seen by Provider: 09/27/18 14:40 Source: patient Exam Limitations: no limitations Patient Subjective Stated Complaint: Pt states "I have COPD and I thought it was an exacerbation at first and on saturday I went to [facility] and she gave me antibiotics and prednisone but the pain in my right flank has gotten worse. It is high on my side." Triage Nursing Assessment: Pt presented alert and oriented X 3, skin pwd. Pt ambulates with an upright steady gait, able to speak in clear full sentences. PT in no apparent respiratory ditress. Physician History: 53 years old female Pt states "I have COPD and I thought it was an exacerbation at first and on Saturday I went to [facility] and she gave me antibiotics and prednisone but the pain in my right flank has gotten worse. It is high on my side." Pain has been there for 1 week. no shortness of breath Timing/Duration: day(s) Severity: mild Associated Symptoms: denies symptoms Allergies/Adverse Reactions: naproxen Allergy (Mild, Verified 05/14/18 22:49) Nausea Sulfa (Sulfonamide Antibiotics) Allergy (Verified 05/14/18 22:49) Home Medications: Aspirin 81 gm Chew [Baby Aspirin 81 mg Chew] 243 mg PO DAILY 07/28/17 [ History] Metoprolol Succinate 50 mg [Toprol Xl 50 MG] 50 mg PO DAILY 07/28/17 [ History] Albuterol Sulfate [Ventolin Hfa] 90 mcg IH Q4HPRN PRN 09/30/17 [History] Doxycycline Hyclate [Vibramycin] 100 mg PO DAILY 09/27/18 [History] Hx Tetanus, Diphtheria Vaccination/Date Given: No Hx Influenza Vaccination/Date Given: Yes Hx Pneumococcal Vaccination/Date Given: Yes Immunizations Up to Date: Yes - Review of Systems Constitutional: No Fever, No Chills Eyes: No Symptoms Ears, Nose, & Throat: No Symptoms Respiratory: No Cough, No Dyspnea Cardiac: Chest Pain, No Edema, No Syncope Abdominal/Gastrointestinal: No Abdominal Pain, No Nausea, No Vomiting, No Diarrhea Genitourinary Symptoms: No Dysuria Musculoskeletal: No Back Pain, No Neck Pain Skin: No Rash Neurological: No Dizziness, No Focal Weakness, No Sensory Changes Psychological: No Symptoms Endocrine: No Symptoms All Other Systems: Reviewed and Negative - Past Medical History Pertinent Past Medical History: Yes Neurological History: No Pertinent History ENT History: No Pertinent History Cardiac History: No Pertinent History, Hypertension Respiratory History: Asthma, COPD Endocrine Medical History: No Pertinent History Musculoskeletal History: No Pertinent History GI Medical History: No Pertinent History History: No Pertinent History Psycho-Social History: No Pertinent History Female Reproductive Disorders: Other Other Medical History: Cervical dysplasia - Past Surgical History Past Surgical History: Yes Neuro Surgical History: No Pertinent History Cardiac: No Pertinent History Respiratory: No Pertinent History Gastrointestinal: No Pertinent History Genitourinary: No Pertinent History Musculoskeletal: No Pertinent History Female Surgical History: Hysterectomy Other Surgical History: TONSILECTOMY - Social History Smoking Status: Former smoker How long have you smoked: 40years Exposure to second hand smoke: Yes Drug Use: none Patient Lives Alone: No - Female History Hx Now: No - Nursing Vital Signs Nursing Vital Signs: Initial Vital Signs Temperature 98.2 F 09/27/18 14:19 Pulse Rate 90 09/27/18 14:19 Respiratory Rate 22 09/27/18 14:19 Blood Pressure 132/73 09/27/18 14:19 O2 Sat by Pulse Oximetry 97 09/27/18 14:19 Pain Scale Pain Intensity 6 - Physical Exam General Appearance: no apparent distress, alert Eye Exam: PERRL/EOMI, eyes nml inspection Ears, Nose, Throat Exam: normal ENT inspection, TMs normal, pharynx normal, moist mucous membranes Neck Exam: normal inspection, non-tender, supple, full range of motion Respiratory Exam: diminished breath sounds (right lower chest), No respiratory distress Cardiovascular Exam: regular rate/rhythm, normal heart sounds, normal peripheral pulses Gastrointestinal/Abdomen Exam: soft, normal bowel sounds, No tenderness, No mass Back Exam: normal inspection, normal range of motion, No CVA tenderness, No vertebral tenderness Extremity Exam: normal inspection, normal range of motion, pelvis stable Neurologic Exam: alert, oriented x 3, cooperative, normal mood/affect, nml cerebellar function, nml station & gait, sensation nml, No motor deficits Skin Exam: normal color, warm, dry, No rash Lymphatic Exam: No adenopathy SpO2: 97 - Course Nursing assessment & vital signs reviewed: Yes - Radiology Exams Chest X-ray Interpretation: Reviewed by me, Negative Ordered Tests: Active Orders 24 hr Category Date Time Status CHEST 2 VIEWS (PA AND LAT) Stat Exams 09/27/18 14:39 Ordered CBC W DIFF Stat Lab 09/27/18 14:41 Completed CMP Stat Lab 09/27/18 14:41 Completed D-DIMER QUANTITATION Stat Lab 09/27/18 14:41 Completed TROPONIN Q3H Lab 09/27/18 14:41 Completed TROPONIN Q3H Lab 09/27/18 17:45 Ordered TROPONIN Q3H Lab 09/27/18 20:45 Ordered TROPONIN Q3H Lab 09/27/18 23:45 Ordered TROPONIN Q3H Lab 09/28/18 02:45 Ordered Medication Summary Generic Name Dose Route Start Last Admin Trade Name Freq PRN Reason Stop Dose Admin Ceftriaxone Sodium/Dextrose 1 g in 50 mls @ 100 mls/hr 09/27/18 15:46 Rocephin 1 Gm-D5w 50 Ml Bag IV 09/27/18 16:15 STAT ONE Discontinued Medications Generic Name Dose Route Start Last Admin Trade Name Freq PRN Reason Stop Dose Admin Ceftriaxone Sodium 1,000 mg 09/27/18 15:34 09/27/18 15:48 Rocephin 1000 Mg Inj IM 09/27/18 15:35 Not Given STAT ONE Lab/Rad Data: Laboratory Result Diagrams 09/27/18 14:41 09/27/18 14:41 Laboratory Results 09/27/18 09/27/18 09/27/18 Range/Units 14:55 14:41 14:41 WBC (4.0-10.5) K/mm3 RBC (4.1-5.4) M/mm3 Hgb (12.0-16.0) gm/dl Hct (35-47) % MCV (78-100) fl MCH (26-32) pg MCHC (32-36) g/dl RDW (11.5-14.0) % Plt Count (150-450) K/mm3 MPV (6-9.5) fl Gran % (36.0-66.0) % Eos # (Auto) (0-0.5) Absolute Lymphs (auto) (1.0-4.6) Absolute Monos (auto) (0.0-1.3) Lymphocytes % (24.0-44.0) % Monocytes % (0.0-12.0) % Eosinophils % (0.00-5.0) % Basophils % (0.0-0.4) % Absolute Granulocytes (1.4-6.9) Basophils # (0-0.4) D-Dimer < 215 L (215-500) ng/mL Sodium (137-145) mmol/L Potassium (3.5-5.1) mmol/L Chloride (98-107) mmol/L Carbon Dioxide (22-30) mmol/L Anion Gap (5-15) MEQ/L BUN (7-17) mg/dL Creatinine (0.52-1.04) mg/dL Estimated GFR ML/MIN Glucose (74-106) mg/dL Hemoglobin A1c 5.54 (4.5-6.0) % Calcium (8.4-10.2) mg/dL Total Bilirubin (0.2-1.3) mg/dL AST (14-36) U/L ALT (0-35) U/L Alkaline Phosphatase (38-126) U/L Troponin I < 0.012 (0.000-0.034) ng/mL Serum Total Protein (6.3-8.2) g/dL Albumin (3.5-5.0) g/dL 09/27/18 09/27/18 Range/Units 14:41 14:41 WBC 16.7 H (4.0-10.5) K/mm3 RBC 5.28 (4.1-5.4) M/mm3 Hgb 16.6 H (12.0-16.0) gm/dl Hct 50.4 H (35-47) % MCV 95.5 (78-100) fl MCH 31.4 (26-32) pg MCHC 32.9 (32-36) g/dl RDW 13.1 (11.5-14.0) % Plt Count 352 (150-450) K/mm3 MPV 9.1 (6-9.5) fl Gran % 89.7 H (36.0-66.0) % Eos # (Auto) 0.01 (0-0.5) Absolute Lymphs (auto) 1.38 (1.0-4.6) Absolute Monos (auto) 0.32 (0.0-1.3) Lymphocytes % 8.2 L (24.0-44.0) % Monocytes % 1.9 (0.0-12.0) % Eosinophils % 0.1 (0.00-5.0) % Basophils % 0.1 (0.0-0.4) % Absolute Granulocytes 15.01 H (1.4-6.9) Basophils # 0.02 (0-0.4) D-Dimer (215-500) ng/mL Sodium 141 (137-145) mmol/L Potassium 3.9 (3.5-5.1) mmol/L Chloride 102 (98-107) mmol/L Carbon Dioxide 28 (22-30) mmol/L Anion Gap 15.1 H (5-15) MEQ/L BUN 13 (7-17) mg/dL Creatinine 0.59 (0.52-1.04) mg/dL Estimated GFR > 60.0 ML/MIN Glucose 141 H (74-106) mg/dL Hemoglobin A1c (4.5-6.0) % Calcium 10.3 H (8.4-10.2) mg/dL Total Bilirubin 0.40 (0.2-1.3) mg/dL AST 24 (14-36) U/L ALT 26 (0-35) U/L Alkaline Phosphatase 87 (38-126) U/L Troponin I (0.000-0.034) ng/mL Serum Total Protein 8.2 (6.3-8.2) g/dL Albumin 4.5 (3.5-5.0) g/dL - Progress Progress: unchanged, pain not gone completely Counseled pt/family regarding: lab results, diagnosis, need for follow-up, rad results - Departure Departure Disposition: Home Clinical Impression: Acute bronchitis Qualifiers: Bronchitis organism: unspecified organism Qualified Code(s): J20.9 - Acute bronchitis, unspecified COPD (chronic obstructive pulmonary disease) Qualifiers: COPD type: chronic bronchitis Chronic bronchitis type: simple Qualified Code(s) : J41.0 - Simple chronic bronchitis Condition: Stable Critical Care Time: No Referrals: WILBERT MORALES MD [Primary Care Provider] - Instructions: Chronic Obstructive Pulmonary Disease Additional Instructions: KAUSHIK MADRID was seen on 09/27/18 n the Emergency Room. At that time you were treated for an emergent condition, during your visit Laboratory, Radiology and/or other procedures may have been ordered. It is very important that you follow-up with your Primary Care Physician MORALES,WILBERT KENDRA within the next 24- 48 hours to review your Emergency Room visit and the final results of testing that was ordered. Some test results such as Urine Cultures, Blood Cultures, and other cultures if ordered will not be finalized for 24-48 hours. If you do not have a Primary Care Provider please call the medical records department at [phone] ext [phone] to obtain a copy of your results or you may sign into our patient portal to obtain these results by visiting us @ [email or web address] and completing the following steps: 1. Click on the Patient Portal link 2. Click the Patient Self Enrollment Link to complete the enrollment form and entering your 3. Once the enrollment form is completed you will receive an email with a temporary ID and password at the email address you provided. 4. Next choose a user name and password. Your user name must be at least 4 characters long and your password must be at least 4 characters long. 5. Choose a security question from the list and provide your answer to the question. If you already have signed into the Health Portal you may access your Health Care Information 17/12 by the following steps: 1. Login to our website @ [email or web address] 2. Enter your original user name and password. FAQS The [facility] Health Portal is an online tool that contains your Lab Results, Radiology Reports, Visit History, Discharge Instructions and Health Summary Lab and Radiology Results will not be available for 72 hours on the portal. The Portal is a secure site, passwords are encryted and URLs are re-written so they cannot be copied and pasted. You and authorized family members are the only ones who can access your Portal. Also there is a timeout feature that protects your information if you leave the Portal page open. If you have technical difficulty please use the Contact Us link on the page this will allow you to submit any questions you have regarding the Portal or you may contact the Medical Record Department at [phone]. Prescriptions: Amoxicillin 500 mg Cap [Amoxil 500 mg] 500 mg PO TID #21 capsule
[2018-09-27 14:45] LABS: BASOPHIL % 0.1 % (0.0-0.4); Basophil (Absolute #) 0.02 (0-0.4); Eosinophil % 0.1 % (0.00-5.0); Eosinophil (Absolute #) 0.01 (0-0.5); Granulocyte Absolute (ANC) 15.01 (1.4-6.9); Granulocytes % 89.7 % (36.0-66.0); Hematocrit 50.4 % (35-47); Hemoglobin 16.6 gm/dl (12.0-16.0); Lymphocyte (Absolute #) 1.38 (1.0-4.6); Lymphocytes % 8.2 % (24.0-44.0); Mean Cell Volume 95.5 fl (78-100); Mean Corpuscular Hemoglobin 31.4 pg (26-32); Mean Corpuscular Hgb Concent. 32.9 g/dl (32-36); Mean Platelet Volume 9.1 fl (6-9.5); Monocyte (Absolute #) 0.32 (0.0-1.3); Monocytes % 1.9 % (0.0-12.0); Platelet Count 352 K/mm3 (150-450); Red Blood Count 5.28 M/mm3 (4.1-5.4); Red Cell Distribution Width 13.1 % (11.5-14.0); White Blood Count 16.7 K/mm3 (4.0-10.5)
[2018-09-27 14:55] LABS: ALBUMIN 4.5 g/dL (3.5-5.0); ALKALINE PHOSPHATASE 87 U/L (38-126); ANION GAP 15.1 MEQ/L (5-15); BLOOD UREA NITROGEN 13 mg/dL (7-17); CHLORIDE 102 mmol/L (98-107); Calcium 10.3 mg/dL (8.4-10.2); Carbon Dioxide 28 mmol/L (22-30); Creatinine 1 0.59 mg/dL (0.52-1.04); Glucose 141 mg/dL (74-106); Potassium 3.9 mmol/L (3.5-5.1); SGOT/AST 24 U/L (14-36); SGPT/ALT 26 U/L (0-35); SODIUM 141 mmol/L (137-145); Total Protein 8.2 g/dL (6.3-8.2)
[2018-09-27] MEDS ORDERED: Rocephin 1000 MG INJ IM ONE (15:34)
[2018-09-27] MEDS ORDERED: ROCEPHIN 1 Gm-D5w 50 ml Bag** 1 G/50 ML IVPB IV ONE ×2 (15:46→15:47)
[2018-09-27 16:21] VITALS: BP 115/57
--- NOTE | 2018-09-27 21:06 | XRAY ---
Indication: Chest pain and cough. Comparison: May 14, 2018. PA/lateral chest demonstrates new subtle right infrahilar infiltrate versus atelectasis. Stable COPD, left apical calcified granuloma, and left base fibrosis/scarring. Heart and mediastinal structures within normal limits. Bony thorax intact again with mild degenerative changes. Impression: 1. New right infrahilar infiltrate/atelectasis. 2. Stable COPD, fibrosis/scarring, and evidence for old granulomatous disease.
== END 2018-09-27 16:31 | disposition home or self-care (01) ==
LOC: ED 14:16
DX: J20.9 Acute bronchitis, unspecified (principal); J44.9 Chronic obstructive pulmonary disease, unspecified; Z79.899 Other long term (current) drug therapy
CPT/HCPCS: 36000; 36415; 71046; 80053; 83036; 84484; 85025; 85379; 96365; 96374; 99284; J0696

== ENCOUNTER 2018-12-05 07:09 | Emergency (ER) | payer OTHER ==
--- NOTE | 2018-12-05 07:11 | ERPHSYRPT ---
- History of Present Illness Time Seen by Provider: 12/05/18 07:11 Source: patient, EMS Exam Limitations: no limitations Physician History: 53 y/o obese white female with 3 liter oxygen nc copd dependency presents with 2 day h/o worsening soa and this am had associated palpitations measured by pt as 140 bpm. no sig cp. no abd pain, no n/v/d. pt states she is under a lot of stress. Timing/Duration: day(s) (2) Activities at Onset: emotional stress Severity of Dyspnea-Max: mild Severity of Dyspnea-Current: mild Possible Cause: occasional episodes Associated Symptoms: anxiety, heart racing Allergies/Adverse Reactions: naproxen Allergy (Mild, Verified 05/14/18 22:49) Nausea Sulfa (Sulfonamide Antibiotics) Allergy (Verified 05/14/18 22:49) Home Medications: Aspirin 81 gm Chew [Baby Aspirin 81 mg Chew] 243 mg PO DAILY 07/28/17 [ History] Metoprolol Succinate 50 mg [Toprol Xl 50 MG] 50 mg PO DAILY 07/28/17 [ History] Albuterol Sulfate [Ventolin Hfa] 90 mcg IH Q4HPRN PRN 09/30/17 [History] Doxycycline Hyclate [Vibramycin] 100 mg PO DAILY 09/27/18 [History] Hx Tetanus, Diphtheria Vaccination/Date Given: No Hx Influenza Vaccination/Date Given: Yes Hx Pneumococcal Vaccination/Date Given: Yes - Review of Systems Constitutional: No Symptoms Eyes: No Symptoms Ears, Nose, & Throat: No Symptoms Respiratory: Dyspnea (mild) Cardiac: Palpitations Abdominal/Gastrointestinal: No Symptoms Genitourinary Symptoms: No Symptoms Musculoskeletal: No Symptoms Skin: No Symptoms Neurological: No Symptoms Psychological: No Symptoms Endocrine: No Symptoms Hematologic/Lymphatic: No Symptoms Immunological/Allergic: No Symptoms All Other Systems: Reviewed and Negative - Past Medical History Pertinent Past Medical History: Yes Neurological History: No Pertinent History ENT History: No Pertinent History Cardiac History: No Pertinent History, Hypertension Respiratory History: Asthma, COPD Endocrine Medical History: No Pertinent History Musculoskeletal History: No Pertinent History GI Medical History: No Pertinent History History: No Pertinent History Psycho-Social History: No Pertinent History Female Reproductive Disorders: Other Other Medical History: Cervical dysplasia - Past Surgical History Past Surgical History: Yes Neuro Surgical History: No Pertinent History Cardiac: No Pertinent History Respiratory: No Pertinent History Gastrointestinal: No Pertinent History Genitourinary: No Pertinent History Musculoskeletal: No Pertinent History Female Surgical History: Hysterectomy Other Surgical History: TONSILECTOMY - Social History Smoking Status: Former smoker How long have you smoked: 40years Exposure to second hand smoke: Yes Drug Use: none Patient Lives Alone: No - Nursing Vital Signs Nursing Vital Signs: Initial Vital Signs Temperature 98 F 12/05/18 07:10 Pulse Rate 91 H 12/05/18 07:10 Respiratory Rate 22 12/05/18 07:10 Blood Pressure 126/74 12/05/18 07:10 O2 Sat by Pulse Oximetry 96 12/05/18 07:10 Pain Scale Pain Intensity 4 - Physical Exam General Appearance: mild distress, alert, anxiety Eye Exam: PERRL/EOMI, eyes nml inspection Ears, Nose, Throat Exam: hearing grossly normal Neck Exam: normal inspection, non-tender, supple, full range of motion Respiratory Exam: normal breath sounds, lungs clear, airway intact, No chest tenderness, No respiratory distress Cardiovascular/Chest Exam: normal heart sounds, regular rate/rhythm Abdominal/Gastrointestinal Exam: soft, normal bowel sounds, No tenderness, No guarding Rectal Exam: not done Extremity Exam: non-tender, normal range of motion, normal inspection Neurologic Exam: alert, oriented x 3, cooperative, jet worker II-XII nml as tested Skin Exam: normal color, warm, dry Lymphatic Exam: No adenopathy SpO2 Interpretation: normal O2 Delivery: Room Air - Course Nursing assessment & vital signs reviewed: Yes EKG Interpreted by Me: RATE (64), Sinus Rhythm, NORMAL AXIS, NORMAL INTERVALS, NORMAL QRS, Other (comparison ekg 05/14/18 no changes.) Ordered Tests: Active Orders 24 hr Category Date Time Status 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 Proofer Apprentice STAT Care 12/05/18 07:49 Active EKG-ER Only STAT Care 12/05/18 07:48 Active IV Insertion STAT Care 12/05/18 07:48 Active Pulse Oximetry (ED) STAT Care 12/05/18 07:48 Active CHEST 1 VIEW (PORTABLE) Stat Exams 12/05/18 07:49 Taken CBC W DIFF Stat Lab 12/05/18 08:20 Completed CMP Stat Lab 12/05/18 08:20 Completed D-DIMER QUANTITATION Stat Lab 12/05/18 08:20 Completed MAGNESIUM Stat Lab 12/05/18 08:20 Completed NT PRO BNP Stat Lab 12/05/18 08:20 Completed TROPONIN Q3H Lab 12/05/18 08:20 Completed TROPONIN Q3H Lab 12/05/18 11:00 Ordered TROPONIN Q3H Lab 12/05/18 14:00 Ordered TROPONIN Q3H Lab 12/05/18 17:00 Ordered TROPONIN Q3H Lab 12/05/18 20:00 Ordered Lab/Rad Data: Laboratory Result Diagrams 12/05/18 08:20 12/05/18 08:20 Laboratory Results 12/05/18 12/05/18 12/05/18 Range/Units 08:20 08:20 08:20 WBC (4.0-10.5) K/mm3 RBC (4.1-5.4) M/mm3 Hgb (12.0-16.0) gm/dl Hct (35-47) % MCV (78-100) fl MCH (26-32) pg MCHC (32-36) g/dl RDW (11.5-14.0) % Plt Count (150-450) K/mm3 MPV (6-9.5) fl Gran % (36.0-66.0) % Eos # (Auto) (0-0.5) Absolute Lymphs (auto) (1.0-4.6) Absolute Monos (auto) (0.0-1.3) Lymphocytes % (24.0-44.0) % Monocytes % (0.0-12.0) % Eosinophils % (0.00-5.0) % Basophils % (0.0-0.4) % Absolute Granulocytes (1.4-6.9) Basophils # (0-0.4) D-Dimer < 215 L (215-500) ng/mL Sodium 143 (137-145) mmol/L Potassium 3.9 (3.5-5.1) mmol/L Chloride 107 (98-107) mmol/L Carbon Dioxide 30 (22-30) mmol/L Anion Gap 9.5 (5-15) MEQ/L BUN 9 (7-17) mg/dL Creatinine 0.58 (0.52-1.04) mg/dL Estimated GFR > 60.0 ML/MIN Glucose 102 (74-106) mg/dL Calcium 9.6 (8.4-10.2) mg/dL Magnesium 2.0 (1.6-2.3) mg/dL Total Bilirubin 0.70 (0.2-1.3) mg/dL AST 18 (14-36) U/L ALT 17 (0-35) U/L Alkaline Phosphatase 77 (38-126) U/L Troponin I < 0.012 (0.000-0.034) ng/mL NT-Pro-B Natriuret Pep 50.3 (0-900) pg/mL Serum Total Protein 7.3 (6.3-8.2) g/dL Albumin 4.1 (3.5-5.0) g/dL 12/05/18 Range/Units 08:20 WBC 10.0 (4.0-10.5) K/mm3 RBC 5.05 (4.1-5.4) M/mm3 Hgb 16.3 H (12.0-16.0) gm/dl Hct 49.0 H (35-47) % MCV 97.0 (78-100) fl MCH 32.2 H (26-32) pg MCHC 33.3 (32-36) g/dl RDW 13.3 (11.5-14.0) % Plt Count 272 (150-450) K/mm3 MPV 9.0 (6-9.5) fl Gran % 74.6 H (36.0-66.0) % Eos # (Auto) 0.09 (0-0.5) Absolute Lymphs (auto) 1.77 (1.0-4.6) Absolute Monos (auto) 0.64 (0.0-1.3) Lymphocytes % 17.7 L (24.0-44.0) % Monocytes % 6.4 (0.0-12.0) % Eosinophils % 0.9 (0.00-5.0) % Basophils % 0.4 (0.0-0.4) % Absolute Granulocytes 7.44 H (1.4-6.9) Basophils # 0.04 (0-0.4) D-Dimer (215-500) ng/mL Sodium (137-145) mmol/L Potassium (3.5-5.1) mmol/L Chloride (98-107) mmol/L Carbon Dioxide (22-30) mmol/L Anion Gap (5-15) MEQ/L BUN (7-17) mg/dL Creatinine (0.52-1.04) mg/dL Estimated GFR ML/MIN Glucose (74-106) mg/dL Calcium (8.4-10.2) mg/dL Magnesium (1.6-2.3) mg/dL Total Bilirubin (0.2-1.3) mg/dL AST (14-36) U/L ALT (0-35) U/L Alkaline Phosphatase (38-126) U/L Troponin I (0.000-0.034) ng/mL NT-Pro-B Natriuret Pep (0-900) pg/mL Serum Total Protein (6.3-8.2) g/dL Albumin (3.5-5.0) g/dL - Progress Progress: improved Air Movement: good Progress Note: 12/05/18 09:14 cxr-no acute process. Counseled pt/family regarding: lab results, diagnosis, need for follow-up, rad results - Departure Departure Disposition: Home Clinical Impression: Anxiety, Palpitations Condition: Stable Critical Care Time: No Referrals: WILBERT MORALES MD [Primary Care Provider] - Additional Instructions: take your medications as prescribed. follow up with your prescribing doctors for further management
[2018-12-05 08:01] VITALS: O2SAT 96
[2018-12-05 08:41] LABS: BASOPHIL % 0.4 % (0.0-0.4); Basophil (Absolute #) 0.04 (0-0.4); Eosinophil % 0.9 % (0.00-5.0); Eosinophil (Absolute #) 0.09 (0-0.5); Granulocyte Absolute (ANC) 7.44 (1.4-6.9); Granulocytes % 74.6 % (36.0-66.0); Hemoglobin 16.3 gm/dl (12.0-16.0); Lymphocyte (Absolute #) 1.77 (1.0-4.6); Lymphocytes % 17.7 % (24.0-44.0); Mean Corpuscular Hgb Concent. 33.3 g/dl (32-36); Monocyte (Absolute #) 0.64 (0.0-1.3); Monocytes % 6.4 % (0.0-12.0); Platelet Count 272 K/mm3 (150-450); Red Blood Count 5.05 M/mm3 (4.1-5.4); Red Cell Distribution Width 13.3 % (11.5-14.0)
[2018-12-05 08:42] LABS: Mean Corpuscular Hemoglobin 32.2 pg (26-32)
[2018-12-05 08:53] LABS: ALBUMIN 4.1 g/dL (3.5-5.0); ALKALINE PHOSPHATASE 77 U/L (38-126); ANION GAP 9.5 MEQ/L (5-15); BLOOD UREA NITROGEN 9 mg/dL (7-17); CHLORIDE 107 mmol/L (98-107); Calcium 9.6 mg/dL (8.4-10.2); Carbon Dioxide 30 mmol/L (22-30); Creatinine 1 0.58 mg/dL (0.52-1.04); Glucose 102 mg/dL (74-106); NT PRO BNP 50.3 pg/mL (0-900); Potassium 3.9 mmol/L (3.5-5.1); SGOT/AST 18 U/L (14-36); SGPT/ALT 17 U/L (0-35); SODIUM 143 mmol/L (137-145); Total Protein 7.3 g/dL (6.3-8.2)
[2018-12-05 09:30] VITALS: BP 111/59; PULSE 78
--- NOTE | 2018-12-05 09:40 | XRAY ---
Indication: Short of breath. Palpitations. Comparison: September 27, 2018. Portable chest remains hyperinflated with left upper lobe calcified granuloma. No focal infiltrate, consolidation, or large effusion. Heart is not enlarged. Bony thorax intact again with mild degenerative changes. Impression: Stable nonacute hyperinflated chest with chronic features.
== END 2018-12-05 09:42 | disposition home or self-care (01) ==
LOC: ED 07:09
DX: F41.9 Anxiety disorder, unspecified (principal); R00.2 Palpitations; I10 Essential (primary) hypertension; J44.9 Chronic obstructive pulmonary disease, unspecified; J45.909 Unspecified asthma, uncomplicated; Z79.899 Other long term (current) drug therapy
CPT/HCPCS: 36000; 36415; 71045; 80053; 83735; 83880; 84484; 85025; 85379; 93005; 93041; 94760; 99284

== ENCOUNTER 2019-01-28 17:38 | Emergency (ER) | payer OTHER ==
--- NOTE | 2019-01-28 18:23 | ERPHSYRPT ---
- History of Present Illness Time Seen by Provider: 01/28/19 18:15 Source: patient Exam Limitations: no limitations Patient Subjective Stated Complaint: "I smashed my right middle toe with a can of tomatoes this am" Triage Nursing Assessment: aaox3, arrives with c/o pain to right 3rd toe s/p dropping can of crushed tomatoes on toe at approx 1000 am today. Patient appears to be in mod amt of pain, open wounds to toe noted. Physician History: Patient dropped a can of crushed tomatoes on the third toe at 10am on 01/28/2019. It began to bleed on the volar aspect of the toe. Method of Injury: direct blow Occurred: this morning Quality: constant, aching, throbbing Severity of Pain-Max: moderate Severity of Pain-Current: moderate Lower Extremities Pain: 3rd toe: right Modifying Factors: Improves With: immobilization Associated Symptoms: No unable to bear weight, No dizzy, No fainted, No seizure , No snapping sensation, No popping sensation Allergies/Adverse Reactions: naproxen Allergy (Mild, Verified 05/14/18 22:49) Nausea Sulfa (Sulfonamide Antibiotics) Allergy (Verified 05/14/18 22:49) Home Medications: Aspirin 81 gm Chew [Baby Aspirin 81 mg Chew] 243 mg PO DAILY 07/28/17 [ History] Metoprolol Succinate 50 mg [Toprol Xl 50 MG] 50 mg PO DAILY 07/28/17 [ History] Albuterol Sulfate [Ventolin Hfa] 90 mcg IH Q4HPRN PRN 09/30/17 [History] Doxycycline Hyclate [Vibramycin] 100 mg PO DAILY 09/27/18 [History] Hx Tetanus, Diphtheria Vaccination/Date Given: No Hx Influenza Vaccination/Date Given: No Hx Pneumococcal Vaccination/Date Given: No - Review of Systems Constitutional: No Fever, No Chills Eyes: No Eye Pain Ears, Nose, & Throat: No Nose Pain, No Mouth Pain, No Mouth Swelling Respiratory: No Dyspnea Cardiac: No Edema Abdominal/Gastrointestinal: No Nausea, No Vomiting Genitourinary Symptoms: No Hematuria, No Flank Pain Musculoskeletal: Injury, No Back Pain, No Neck Pain, No Fall Skin: No Rash, No Skin Lesions Neurological: No Dizziness, No Focal Weakness, No Tremors Hematologic/Lymphatic: No Easy Bleeding, No Easy Bruising All Other Systems: Reviewed and Negative - Past Medical History Pertinent Past Medical History: Yes Neurological History: No Pertinent History ENT History: No Pertinent History Cardiac History: No Pertinent History, Hypertension Respiratory History: Asthma, COPD Endocrine Medical History: No Pertinent History Musculoskeletal History: No Pertinent History GI Medical History: No Pertinent History History: No Pertinent History Psycho-Social History: No Pertinent History Female Reproductive Disorders: Other Other Medical History: Cervical dysplasia - Past Surgical History Past Surgical History: Yes Neuro Surgical History: No Pertinent History Cardiac: No Pertinent History Respiratory: No Pertinent History Gastrointestinal: No Pertinent History Genitourinary: No Pertinent History Musculoskeletal: No Pertinent History Female Surgical History: Hysterectomy Other Surgical History: TONSILECTOMY - Social History Smoking Status: Former smoker How long have you smoked: 40 yrs Exposure to second hand smoke: Yes Drug Use: none Patient Lives Alone: No - Female History Hx Last Menstrual Period: hysterectomy Hx Now: No - Nursing Vital Signs Nursing Vital Signs: Initial Vital Signs Temperature 98.0 F 01/28/19 17:58 Pulse Rate 72 01/28/19 17:58 Respiratory Rate 20 01/28/19 17:58 Blood Pressure 122/70 01/28/19 17:58 O2 Sat by Pulse Oximetry 94 L 01/28/19 17:58 Pain Scale Pain Intensity 7 - Physical Exam General Appearance: no apparent distress, alert Eyes, Ears, Nose, Throat Exam: moist mucous membranes Neck Exam: non-tender, supple, full range of motion Cardiovascular/Respiratory Exam: normal breath sounds, no respiratory distress Back Exam: normal inspection, No vertebral tenderness Hips Exam: bilateral: non-tender, normal inspection Legs Exam: bilateral leg: non-tender, normal inspection Knees Exam: bilateral knee: non-tender, normal inspection Ankle Exam: bilateral ankle: non-tender, normal inspection Foot Exam: right foot: normal range of motion, bone tenderness (third toe on the right foot), pain (third toe on the right foot), soft tissue tenderness ( third toe on the right foot), swelling (third toe on the right foot), other ( superficial laceration at the perinychium of the right third toe measuring 8mm) , left foot: non-tender, normal inspection, no evidence of injury DTR - Lower Extremities Exam: ankle (R): 2+, ankle (L): 2+ Neuro/Tendon Exam: normal sensation, normal motor functions Mental Status Exam: alert, oriented x 3, cooperative Skin Exam: normal color, warm, dry, No abrasion SpO2 Interpretation: normal SpO2: 94 O2 Delivery: Room Air Procedures - Laceration/Wound Repair Right Toe Wound Length (cm): 0.8 Wound's Depth, Shape: superficial, linear Wound Explored: clean Hibiclens Prep: Yes Volume Anesthetic (ccs): 0 Wound Debrided: none Wound Repaired With: Dermabond Sterile Dressing Applied?: Yes Ordered Tests: Active Orders 24 hr Category Date Time Status Dressing Care ROUTINE Care 01/28/19 19:34 Ordered FOOT (MINIMUM 3 VIEWS) Stat Exams 01/28/19 18:22 Taken Medication Summary Discontinued Medications Generic Name Dose Route Start Last Admin Trade Name Freq PRN Reason Stop Dose Admin Diphtheria/Tetanus/Acell Pertussis 0.5 ml 01/28/19 19:30 Adacel Vial IM 01/28/19 19:31 .ONCE ONE - Departure Departure Disposition: Home Clinical Impression: Contusion of toe of right foot Qualifiers: Encounter type: initial encounter Toe: lesser toe Damage to nail status: without damage Qualified Code(s): S90.121A - Contusion of right lesser toe(s) without damage to nail, initial encounter Laceration of toe of right foot without damage to nail Qualifiers: Encounter type: initial encounter Toe: lesser toe Foreign body presence: without foreign body Qualified Code(s): S91.114A - Laceration without foreign body of right lesser toe(s) without damage to nail, initial encounter Hypertension Qualifiers: Hypertension type: essential hypertension Qualified Code(s): I10 - Essential ( primary) hypertension Condition: Good Critical Care Time: No Referrals: MATEO SMITH [Primary Care Provider] - 02/02/19 Instructions: Laceration Repair With Glue (DC), Toe Injury (DC), Diphtheria and Tetanus Toxoids, and Acellular Pertussis Vaccine Additional Instructions: We will notify you if the radiologist sees anything different from the emergency department physician's initial interpretation and discuss if any change in terms of treatment is needed. Consider followup with a planer tailer if the child persists to hurt or followup with your primary care physician. Prescriptions: Etodolac 400 mg [Lodine 400 mg] 400 mg PO BID PRN PRN #20 tablet PRN Reason: Pain
[2019-01-28] MEDS ORDERED: Adacel Vial IM ONE (19:40)
[2019-01-28] MEDS: Adacel Vial IM ONE (19:48)
[2019-01-28 19:59] VITALS: BP 124/66; PULSE 57; O2SAT 96
--- NOTE | 2019-01-29 08:49 | XRAY ---
Indication: Pain/bruising 3rd toe following injury. Comparison: None 3 nonweightbearing views of the right foot demonstrates tiny heel spurs and tiny cuboid accessory ossicle. No other bony, articular, or soft tissue abnormalities.
== END 2019-01-28 20:00 | disposition home or self-care (01) ==
LOC: ED 17:38
DX: S90.121A Contusion of right lesser toe(s) without damage to nail, initial encounter (principal); S91.114A Laceration without foreign body of right lesser toe(s) without damage to nail, initial encounter; I10 Essential (primary) hypertension; W20.8XXA Other cause of strike by thrown, projected or falling object, initial encounter
CPT/HCPCS: 12001; 73630; 90471; 90715; 99283

== ENCOUNTER 2019-04-19 18:01 | Emergency (ER) | payer OTHER ==
[2019-04-19] MEDS ORDERED: NORCO 5/325 MG PO ONE (19:02)
--- NOTE | 2019-04-19 20:40 | ERPHSYRPT ---
- History of Present Illness Time Seen by Provider: 04/19/19 18:30 Source: patient Exam Limitations: no limitations Patient Subjective Stated Complaint: pt reports headache beginning 10 days ago. states she saw [facility] T[facility]OR sunday 04/15 and was diagnosed with bilat ear infection, reports she is on amoxicillin. pt reports her headache has increased since that time. pt presents with home O2 in place a 3lpm. Triage Nursing Assessment: pt is aox3, pupils perrl, afebrile, resps easy and non labored, nasal cannula worn per home use upon arrival at 3lpm, cap refiil < 3 seconds, radial pulses strong and equal, pt speech clear, appropriate. pt ambulated to trt room with no difficulties. Physician History: 54 y/o white femal with approx 10 day h/o headache. worsening. was seen by pcp and told she had bilat ear infections. tx with amoxicillin. pt took last dose today. denies head injury. pt has appt with [facility] in am. denies fever, no sig neck pain. pain all over head but worsen in back Timing/Duration: day(s) (10), worse Quality: pressure Head Pain Location: global Modifying Factors: Improves With: exposure to light, noise Associated Symptoms: sensitive to light, No stiff neck Previous symptoms: same symptoms as today Allergies/Adverse Reactions: naproxen Allergy (Mild, Verified 05/14/18 22:49) Nausea Sulfa (Sulfonamide Antibiotics) Allergy (Verified 05/14/18 22:49) Home Medications: Aspirin 81 gm Chew [Baby Aspirin 81 mg Chew] 243 mg PO DAILY 07/28/17 [ History] Metoprolol Succinate 50 mg [Toprol Xl 50 MG] 50 mg PO DAILY 07/28/17 [ History] Albuterol Sulfate [Ventolin Hfa] 90 mcg IH Q4HPRN PRN 09/30/17 [History] Doxycycline Hyclate [Vibramycin] 100 mg PO DAILY 09/27/18 [History] Hx Tetanus, Diphtheria Vaccination/Date Given: Yes Hx Influenza Vaccination/Date Given: Yes (A 03/14) Hx Pneumococcal Vaccination/Date Given: Yes Immunizations Up to Date: Yes - Review of Systems Constitutional: No Symptoms Eyes: No Symptoms Ears, Nose, & Throat: No Symptoms Respiratory: No Symptoms Cardiac: No Symptoms Abdominal/Gastrointestinal: No Symptoms Genitourinary Symptoms: No Symptoms Musculoskeletal: No Symptoms Skin: No Symptoms Neurological: Headache Psychological: No Symptoms Endocrine: No Symptoms Hematologic/Lymphatic: No Symptoms Immunological/Allergic: No Symptoms All Other Systems: Reviewed and Negative - Past Medical History Pertinent Past Medical History: Yes Neurological History: No Pertinent History ENT History: No Pertinent History Cardiac History: No Pertinent History, Hypertension Respiratory History: Asthma, COPD Endocrine Medical History: No Pertinent History Musculoskeletal History: No Pertinent History GI Medical History: No Pertinent History History: No Pertinent History Psycho-Social History: No Pertinent History Female Reproductive Disorders: Other Other Medical History: Cervical dysplasia - Past Surgical History Past Surgical History: Yes Neuro Surgical History: No Pertinent History Cardiac: No Pertinent History Respiratory: No Pertinent History Gastrointestinal: No Pertinent History Genitourinary: No Pertinent History Musculoskeletal: No Pertinent History Female Surgical History: Hysterectomy Other Surgical History: TONSILECTOMY - Social History Smoking Status: Former smoker How long have you smoked: 40 yrs Exposure to second hand smoke: Yes Drug Use: none Patient Lives Alone: No - Female History Hx Now: No - Nursing Vital Signs Nursing Vital Signs: Initial Vital Signs Temperature 98.0 F 04/19/19 18:19 Pulse Rate 87 04/19/19 18:19 Respiratory Rate 20 04/19/19 18:19 Blood Pressure 148/91 04/19/19 18:19 O2 Sat by Pulse Oximetry 96 04/19/19 18:19 Pain Scale Pain Intensity 8 - Physical Exam General Appearance: no apparent distress, alert, anxiety Eye Exam: PERRL/EOMI, eyes nml inspection Ears, Nose, Throat Exam: normal ENT inspection, TMs normal, pharynx normal, moist mucous membranes Neck Exam: normal inspection, non-tender, supple, full range of motion Respiratory Exam: normal breath sounds, lungs clear, airway intact, No chest tenderness, No respiratory distress Cardiovascular Exam: regular rate/rhythm, normal heart sounds, normal peripheral pulses Gastrointestinal/Abdominal Exam: soft, No tenderness Back Exam: normal inspection, normal range of motion, No CVA tenderness, No vertebral tenderness Extremity Exam: normal inspection, normal range of motion, pelvis stable Mental Status Exam: oriented x 3, cooperative, No alert vulcanizer Exam: normal hearing, normal speech, PERRL, tongue midline Coordination/Gait Exam: normal finger to nose, normal gait, normal cerebellar function Motor/Sensory Exam: no motor deficit, no sensory deficit Skin Exam: normal color, warm, dry Lymphatic Exam: No adenopathy SpO2 Interpretation: normal SpO2: 97 O2 Delivery: Room Air - Course Nursing assessment & vital signs reviewed: Yes Ordered Tests: Active Orders 24 hr Category Date Time Status HEAD WITHOUT CONTRAST [CT] Stat Exams 04/19/19 19:03 Taken Medication Summary Discontinued Medications Generic Name Dose Route Start Last Admin Trade Name Freq PRN Reason Stop Dose Admin Hydrocodone Bitart/Acetaminophen 1 tab 04/19/19 19:02 [place] 5/325 Mg PO 04/19/19 19:03 STAT ONE Lab/Rad Data: Laboratory Results 04/19/19 Range/Units Unknown Group A Strep Antibody NEGATIVE (NEGATIVE) - Progress Progress: unchanged Air Movement: good Progress Note: 04/19/19 20:42 ct head-no acute intracranial process. chronic left maxillary sinusitis 04/19/19 20:43 pt only wants one norco 5/325. she only wants prednisone and omnicef called into pharmacy Blood Culture(s) Obtained: No Antibiotics given: Yes Counseled pt/family regarding: diagnosis, need for follow-up, rad results - Departure Departure Disposition: Home Clinical Impression: Headache, Sinusitis Condition: Stable Critical Care Time: No Referrals: MATEO SMITH [Primary Care Provider] - Additional Instructions: keep appointment with [facility] tomorrow morning. Prescriptions: Cefdinir [Omnicef] 300 mg PO BID #14 capsule Prednisone 10 mg [Deltasone 10 mg] 10 mg PO TID #12 tablet
[2019-04-19] MEDS ORDERED: Rocephin 1000 MG INJ IM ONE (20:47)
[2019-04-19] MEDS ORDERED: DELTASONE 20 MG PO ONE (20:48)
[2019-04-19] MEDS ORDERED: DELTASONE 20 MG ONE (20:49)
[2019-04-19] MEDS ORDERED: Rocephin 1000 MG INJ ONE (20:50)
[2019-04-19] MEDS ORDERED: NORCO 5/325 MG ONE (20:50)
[2019-04-19 21:03] VITALS: BP 129/75
[2019-04-19] MEDS ORDERED: DUONEB 0.5-3 MG/3 ml Neb IH ONE ×2 (21:04→21:07)
[2019-04-19 21:14] VITALS: PULSE 68; O2SAT 96
--- NOTE | 2019-04-20 09:20 | XRAY ---
Indication: Headache 10 days. Multiple contiguous axial images obtained through the head without contrast. Comparison: None Normal appearing brain parenchyma, ventricles, and bony calvarium. Mild mucosal thickening of the inferior left maxillary sinus. Mastoid air cells are clear. Impression: Left maxillary sinus disease. Normal CT head without contrast exam. Comment: Preliminary interpretation was made by [facility]. No discrepancy. CT DI 62.40
== END 2019-04-19 21:22 | disposition home or self-care (01) ==
LOC: ED 18:01
DX: R51 Headache (principal); J32.0 Chronic maxillary sinusitis
CPT/HCPCS: 70450; 87651; 94640; 96372; 99284; J0696; A9270-GY

== ENCOUNTER 2020-02-11 16:15 | Emergency (ER) | payer OTHER ==
--- NOTE | 2020-02-11 16:23 | ERPHSYRPT ---
- History of Present Illness Time Seen by Provider: 02/11/20 16:23 Source: patient Exam Limitations: no limitations Physician History: This is an overweight 54-year-old white female who presents with sudden onset of right calf pain. Occurred this afternoon. The pain is worsened and therefore patient came to the emergency department for evaluation. She did not have any trauma to the right calf. She is concerned about a blood clot. Denies shortness of breath and she denies chest pain. Method of Injury: other (No injury) Occurred: this afternoon Quality: cramping Severity of Pain-Max: mild Severity of Pain-Current: mild Lower Extremities Pain: other: right (Calf posteriorly) Modifying Factors: Improves With: movement Allergies/Adverse Reactions: naproxen Allergy (Mild, Verified 02/11/20 16:30) Nausea Sulfa (Sulfonamide Antibiotics) Allergy (Verified 02/11/20 16:30) Home Medications: Aspirin 81 gm Chew [Baby Aspirin 81 mg Chew] 243 mg PO DAILY 07/28/17 [History] Metoprolol Succinate 50 mg [Toprol Xl 50 MG] 50 mg PO DAILY 07/28/17 [History] Albuterol Sulfate [Ventolin Hfa] 90 mcg IH Q4HPRN PRN 09/30/17 [History] Atorvastatin Calcium [Lipitor] 10 mg PO DAILY 02/11/20 [History] Buspirone HCl 5 mg [Buspar 5 mg] 5 mg PO DAILY 02/11/20 [History] Furosemide 20 mg [Lasix 20 mg] 40 mg PO DAILY 02/11/20 [History] Potassium Chloride 10 Meq Tab* [Klor Con 10 MEQ] 10 meq PO DAILY 02/11/20 [History] Hx Tetanus, Diphtheria Vaccination/Date Given: Yes Hx Influenza Vaccination/Date Given: Yes (A 03/14) Hx Pneumococcal Vaccination/Date Given: Yes Travel Risk - International Travel Have you traveled outside of the country in past 3 weeks: No - Coronavirus Screening Are you exhibiting any of the following symptoms?: No Close contact with a COVID-19 positive Pt in past 14-21 Days: No - Review of Systems Constitutional: No Symptoms Eyes: No Symptoms Ears, Nose, & Throat: No Symptoms Respiratory: No Symptoms Cardiac: No Symptoms Abdominal/Gastrointestinal: No Symptoms Genitourinary Symptoms: No Symptoms Musculoskeletal: Myalgias (Colitis to the posterior right calf muscle) Skin: No Symptoms Neurological: No Symptoms Psychological: No Symptoms Endocrine: No Symptoms Hematologic/Lymphatic: No Symptoms Immunological/Allergic: No Symptoms All Other Systems: Reviewed and Negative - Past Medical History Pertinent Past Medical History: Yes Neurological History: No Pertinent History ENT History: No Pertinent History Cardiac History: No Pertinent History, Hypertension Respiratory History: Asthma, COPD Endocrine Medical History: No Pertinent History Musculoskeletal History: No Pertinent History GI Medical History: No Pertinent History History: No Pertinent History Psycho-Social History: No Pertinent History Female Reproductive Disorders: Other Other Medical History: Cervical dysplasia - Past Surgical History Past Surgical History: Yes Neuro Surgical History: No Pertinent History Cardiac: No Pertinent History Respiratory: No Pertinent History Gastrointestinal: No Pertinent History Genitourinary: No Pertinent History Musculoskeletal: No Pertinent History Female Surgical History: Hysterectomy Other Surgical History: TONSILECTOMY - Social History Smoking Status: Former smoker How long have you smoked: 40 yrs Exposure to second hand smoke: Yes Drug Use: none Patient Lives Alone: No - Nursing Vital Signs Nursing Vital Signs: Initial Vital Signs Temperature 98.2 F 02/11/20 16:18 Pulse Rate 93 H 02/11/20 16:18 Blood Pressure 126/84 02/11/20 16:18 O2 Sat by Pulse Oximetry 96 02/11/20 16:18 Pain Scale Pain Intensity 5 - Physical Exam General Appearance: no apparent distress, alert, anxiety Eyes, Ears, Nose, Throat Exam: normal ENT inspection, moist mucous membranes Neck Exam: normal inspection, non-tender, supple, full range of motion Cardiovascular/Respiratory Exam: chest non-tender, no respiratory distress Gastrointestinal/Abdominal Exam: non-tender Back Exam: normal inspection, normal range of motion, No CVA tenderness, No vertebral tenderness Legs Exam: right leg: soft tissue tenderness (Right calf), left leg: non-tender, bilateral leg: normal inspection, normal range of motion, no evidence of injury Knees Exam: bilateral knee: non-tender, normal inspection, normal range of motion, no evidence of injury Ankle Exam: bilateral ankle: non-tender, normal inspection, normal range of motion, no evidence of injury Foot Exam: bilateral foot: non-tender, normal inspection, normal range of motion, no evidence of injury Neuro/Tendon Exam: normal sensation, normal motor functions, normal tendon functions, no evidence tendon injury Mental Status Exam: alert, oriented x 3, cooperative Skin Exam: normal color, warm, dry SpO2 Interpretation: normal O2 Delivery: Room Air - Course Nursing assessment & vital signs reviewed: Yes Ordered Tests: Active Orders 24 hr Category Date Time Status VENOUS UNILAT/LIMITED EXTREMIT [US] Stat Exams 02/11/20 16:24 Taken - Progress Progress: pain not gone completely, re-examined Progress Note: 02/11/20 17:43 Venous Doppler of right calf reveals no evidence of deep venous thrombosis Counseled pt/family regarding: diagnosis, need for follow-up, rad results - Departure Departure Disposition: Home Clinical Impression: Right calf pain Condition: Stable Critical Care Time: No Referrals: MATEO SMITH [NON-STAFF PHY W/O PRIVILEGES] - Additional Instructions: May alternate ice and heat to the tender area. Take medication as prescribed. Follow-up with your primary care physician for further management Prescriptions: Carisoprodol 350 mg [Soma 350 mg] 350 mg PO Q12H PRN PRN #6 tablet MDD 2 PRN Reason: Muscle Spasms
[2020-02-11 17:20] VITALS: BP 119/60; PULSE 75; O2SAT 97
--- NOTE | 2020-02-12 08:36 | XRAY ---
Indication: Right leg pain. Two-dimensional sonogram and color Doppler imaging of the major venous vessels of the right leg was performed. Comparison: None No thrombus seen in the examined deep venous vessels of the right leg including greater saphenous vein. Veins demonstrate normal compressibility. Venous waveforms are normal with and without augmentation. Impression: Right leg negative for DVT. Comment: Preliminary report was given.
== END 2020-02-11 17:53 | disposition home or self-care (01) ==
LOC: ED 16:15
DX: M79.661 Pain in right lower leg (principal); M79.10 Myalgia, unspecified site
CPT/HCPCS: 93971; 99283

== ENCOUNTER 2020-06-23 12:32 | Emergency (ER) | payer OTHER ==
--- NOTE | 2020-06-23 12:52 | ERPHSYRPT ---
- History of Present Illness Time Seen by Provider: 06/23/20 12:47 Source: patient Exam Limitations: no limitations Patient Subjective Stated Complaint: Pt began having a stuffy nose and a sore throat a couple of days ago and today she woke up being short of breath and loss of taste and smell Triage Nursing Assessment: Pt brought to the ER by her sister, hypertensive, denies pain, afebrile, pulses normal, usually on 2.5L NC but was placed on 4 upon arrival, skin n/w/d Physician History: This is a 55-year-old obese white female has a history of hypertension anxiety and COPD as well as asthma. She is a former smoker but smoked for 40 years. Patient presents with shortness of breath. Symptoms started approximately 2 to 3 days ago. Patient is oxygen dependent and wears approximately 2.5 L nasal cannula of oxygen. Patient symptoms were associated with loss of taste and smell this morning. Her shortness of breath was worse this morning. She denies chest pain. She has no abdominal pain. She denies fevers. She had some rhinorrhea in the last couple of days. Symptoms are worse with exertion. Patient does not want to be admitted into the hospital or transferred to another facility. Timing/Duration: day(s) (2 to 3 days) Severity of Dyspnea-Max: mild Severity of Dyspnea-Current: mild Possible Cause: occasional episodes Associated Symptoms: No wheezing, No weakness Allergies/Adverse Reactions: naproxen Allergy (Mild, Verified 06/23/20 12:44) Nausea Sulfa (Sulfonamide Antibiotics) Allergy (Verified 06/23/20 12:44) Home Medications: Aspirin 81 gm Chew [Baby Aspirin 81 mg Chew] 81 mg PO DAILY 07/28/17 [Hist ory] Metoprolol Succinate 50 mg [Toprol Xl 50 MG] 50 mg PO DAILY 07/28/17 [History] Albuterol Sulfate [Ventolin Hfa] 90 mcg IH Q4HPRN PRN 09/30/17 [History] Atorvastatin Calcium [Lipitor] 10 mg PO DAILY 02/11/20 [History] Buspirone HCl 5 mg [Buspar 5 mg] 5 mg PO DAILY 02/11/20 [History] Furosemide 20 mg [Lasix 20 mg] 40 mg PO DAILY 02/11/20 [History] Potassium Chloride 10 Meq Tab* [Klor Con 10 MEQ] 10 meq PO DAILY 02/11/20 [History] Hx Tetanus, Diphtheria Vaccination/Date Given: Yes Hx Influenza Vaccination/Date Given: Yes (FPA 03/14) Hx Pneumococcal Vaccination/Date Given: Yes Travel Risk - International Travel Have you traveled outside of the country in past 3 weeks: No - Coronavirus Screening Are you exhibiting any of the following symptoms?: Yes Symptoms: Shortness of Breath, Loss of Taste or Smell Close contact with a COVID-19 positive Pt in past 14-21 Days: No - Review of Systems Constitutional: No Symptoms Eyes: No Symptoms Ears, Nose, & Throat: Nose Discharge Respiratory: Dyspnea, Dyspnea on Exertion (OZUNA) Cardiac: No Symptoms Abdominal/Gastrointestinal: No Symptoms Genitourinary Symptoms: No Symptoms Musculoskeletal: No Symptoms Skin: No Symptoms Neurological: No Symptoms Psychological: No Symptoms Endocrine: No Symptoms Hematologic/Lymphatic: No Symptoms Immunological/Allergic: No Symptoms All Other Systems: Reviewed and Negative - Past Medical History Pertinent Past Medical History: Yes Neurological History: No Pertinent History ENT History: No Pertinent History Cardiac History: No Pertinent History, Hypertension Respiratory History: Asthma, COPD Endocrine Medical History: No Pertinent History Musculoskeletal History: No Pertinent History GI Medical History: No Pertinent History History: No Pertinent History Psycho-Social History: No Pertinent History Female Reproductive Disorders: Other Other Medical History: Cervical dysplasia - Past Surgical History Past Surgical History: Yes Neuro Surgical History: No Pertinent History Cardiac: No Pertinent History Respiratory: No Pertinent History Gastrointestinal: No Pertinent History Genitourinary: No Pertinent History Musculoskeletal: No Pertinent History Female Surgical History: Hysterectomy Other Surgical History: TONSILECTOMY - Social History Smoking Status: Former smoker How long have you smoked: 40 yrs Exposure to second hand smoke: Yes Drug Use: none Patient Lives Alone: No - Female History Hx Now: No - Nursing Vital Signs Nursing Vital Signs: Initial Vital Signs Temperature 99.3 F 06/23/20 12:36 Pulse Rate 82 06/23/20 12:36 Respiratory Rate 18 06/23/20 12:36 Blood Pressure 146/93 06/23/20 12:36 O2 Sat by Pulse Oximetry 97 06/23/20 12:36 Pain Scale Pain Intensity 0 - Physical Exam General Appearance: no apparent distress, alert, anxiety, obese Eye Exam: PERRL/EOMI, eyes nml inspection Ears, Nose, Throat Exam: hearing grossly normal, normal ENT inspection, normal pharynx Neck Exam: normal inspection, non-tender, supple, full range of motion Respiratory Exam: normal breath sounds, lungs clear, airway intact, No chest tenderness, No respiratory distress Cardiovascular/Chest Exam: normal heart sounds, regular rate/rhythm, murmur Abdominal/Gastrointestinal Exam: soft, normal bowel sounds, No tenderness Rectal Exam: not done Extremity Exam: non-tender, normal range of motion, normal inspection, no calf tenderness, no pedal edema, pelvis stable Neurologic Exam: alert, oriented x 3, cooperative, 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 There is no evidence of any acute ischemic changes on either EKG.) Ordered Tests: Active Orders 24 hr Category Date Time Status EKG-ER Only STAT Care 06/23/20 12:53 Active IV Insertion STAT Care 06/23/20 12:53 Active Pulse Oximetry (ED) STAT Care 06/23/20 12:53 Active CHEST 1 VIEW (PORTABLE) Stat Exams 06/23/20 12:54 Completed BLOOD CULTURE Stat Lab 06/23/20 13:33 Received CBC W DIFF Stat Lab 06/23/20 12:53 Completed CMP Stat Lab 06/23/20 13:25 Completed D-DIMER QUANTITATIVE Stat Lab 06/23/20 13:25 Completed INFLUENZA A+B SHAZIA Stat Lab 06/23/20 13:25 Completed Lactic Acid Stat Lab 06/23/20 13:36 Completed NT PRO BNP Stat Lab 06/23/20 13:25 Completed PROTIME WITH INR Stat Lab 06/23/20 13:25 Completed TROPONIN Q3H Lab 06/23/20 13:25 Completed TROPONIN Q3H Lab 06/23/20 16:00 Ordered TROPONIN Q3H Lab 06/23/20 19:00 Ordered TROPONIN Q3H Lab 06/23/20 22:00 Ordered TROPONIN Q3H Lab 06/24/20 01:00 Ordered Medication Summary Discontinued Medications Generic Name Dose Route Start Last Admin Trade Name Freq PRN Reason Stop Dose Admin Methylprednisolone Sodium Succinate 125 mg 06/23/20 12:53 06/23/20 13:00 Solu-Medrol 125 Mg IV 06/23/20 12:54 125 mg STAT ONE Administration Methylprednisolone Sodium Succinate Confirm 06/23/20 12:57 Solu-Medrol 125 Mg Administered 06/23/20 12:58 Dose 125 mg .ROUTE .STK-MED ONE Lab/Rad Data: Laboratory Result Diagrams 06/23/20 12:53 06/23/20 13:25 Laboratory Results 06/23/20 06/23/20 06/23/20 Range/Units 13:36 13:25 13:25 WBC (4.0-10.5) K/mm3 RBC (4.1-5.4) M/mm3 Hgb (12.0-16.0) gm/dl Hct (35-47) % MCV (78-100) fl MCH (26-32) pg MCHC (32-36) g/dl RDW (11.5-14.0) % Plt Count (150-450) K/mm3 MPV (7.5-11.0) fl Gran % (36.0-66.0) % Eos # (Auto) (0-0.5) Absolute Lymphs (auto) (1.0-4.6) Absolute Monos (auto) (0.0-1.3) Lymphocytes % (24.0-44.0) % Monocytes % (0.0-12.0) % Eosinophils % (0.00-5.0) % Basophils % (0.0-0.4) % Absolute Granulocytes (1.4-6.9) Basophils # (0-0.4) PT (9.95-12.35) SECONDS INR (0.8-3.0) D-Dimer (215-500) ng/mL Sodium (137-145) mmol/L Potassium (3.5-5.1) mmol/L Chloride (98-107) mmol/L Carbon Dioxide (22-30) mmol/L Anion Gap (5-15) MEQ/L BUN (7-17) mg/dL Creatinine (0.52-1.04) mg/dL Estimated GFR ML/MIN Glucose (74-106) mg/dL Lactic Acid 2.5 H (0.4-2.0) Calcium (8.4-10.2) mg/dL Total Bilirubin (0.2-1.3) mg/dL AST (14-36) U/L ALT (0-35) U/L Alkaline Phosphatase (38-126) U/L Troponin I < 0.012 (0.000-0.034) ng/mL NT-Pro-B Natriuret Pep (0-900) pg/mL Serum Total Protein (6.3-8.2) g/dL Albumin (3.5-5.0) g/dL Influenza Type A Ag NEGATIVE (NEGATIVE) Influenza Type B Ag NEGATIVE (NEGATIVE) 06/23/20 06/23/20 06/23/20 Range/Units 13:25 13:25 12:53 WBC 10.0 (4.0-10.5) K/mm3 RBC 4.84 (4.1-5.4) M/mm3 Hgb 15.1 (12.0-16.0) gm/dl Hct 46.8 (35-47) % MCV 96.7 (78-100) fl MCH 31.2 (26-32) pg MCHC 32.3 (32-36) g/dl RDW 13.4 (11.5-14.0) % Plt Count 314 (150-450) K/mm3 MPV 8.9 (7.5-11.0) fl Gran % 73.0 H (36.0-66.0) % Eos # (Auto) 0.03 (0-0.5) Absolute Lymphs (auto) 1.78 (1.0-4.6) Absolute Monos (auto) 0.85 (0.0-1.3) Lymphocytes % 17.9 L (24.0-44.0) % Monocytes % 8.5 (0.0-12.0) % Eosinophils % 0.3 (0.00-5.0) % Basophils % 0.3 (0.0-0.4) % Absolute Granulocytes 7.28 H (1.4-6.9) Basophils # 0.03 (0-0.4) PT 13.1 H (9.95-12.35) SECONDS INR 1.16 (0.8-3.0) D-Dimer < 215 L (215-500) ng/mL Sodium 138 (137-145) mmol/L Potassium 4.2 (3.5-5.1) mmol/L Chloride 100 (98-107) mmol/L Carbon Dioxide 31 H (22-30) mmol/L Anion Gap 11.9 (5-15) MEQ/L BUN 10 (7-17) mg/dL Creatinine 0.61 (0.52-1.04) mg/dL Estimated GFR > 60.0 ML/MIN Glucose 98 (74-106) mg/dL Lactic Acid (0.4-2.0) Calcium 10.0 (8.4-10.2) mg/dL Total Bilirubin 0.60 (0.2-1.3) mg/dL AST 27 (14-36) U/L ALT 20 (0-35) U/L Alkaline Phosphatase 82 (38-126) U/L Troponin I (0.000-0.034) ng/mL NT-Pro-B Natriuret Pep 39.1 (0-900) pg/mL Serum Total Protein 8.1 (6.3-8.2) g/dL Albumin 4.7 (3.5-5.0) g/dL Influenza Type A Ag (NEGATIVE) Influenza Type B Ag (NEGATIVE) - Progress Progress: improved, re-examined, unchanged Air Movement: good Progress Note: 06/23/20 13:48 Chest x-ray shows no acute cardiopulmonary process. Blood Culture(s) Obtained: Yes Antibiotics given: No Counseled pt/family regarding: lab results, diagnosis, need for follow-up, rad results - Departure Departure Disposition: Home Clinical Impression: COPD exacerbation Condition: Stable Critical Care Time: No Referrals: JOSÉ BROWN [Primary Care Provider] - Instructions: Chronic Obstructive Pulmonary Disease Additional Instructions: Take your medication as prescribed. Follow-up with your property man and primary care physician for further management. Prescriptions: Methylprednisolone Packet [Medrol Dosepack] 4 mg PO UD #1 packet
[2020-06-23] MEDS ORDERED: solu-MEDROL 125 MG IV ONE (12:53)
[2020-06-23] MEDS ORDERED: solu-MEDROL 125 MG ONE (12:57)
--- NOTE | 2020-06-23 13:20 | XRAY ---
Indication: Short of breath. Comparison: December 05, 2018. Portable chest remains hyperinflated with minimal bibasilar fibrosis/scarring and small left upper lobe calcified granuloma. No focal infiltrate, consolidation, or large effusion. Heart and mediastinal structures within normal limits. Bony thorax intact again with mild degenerative changes. Impression: Continued nonacute hyperinflated chest with chronic features.
[2020-06-23 13:47] LABS: Absolute Neutrophil Ct (ANC) 7.28 (1.4-6.9); BASOPHIL % 0.3 % (0.0-0.4); Basophil (Absolute #) 0.03 (0-0.4); Eosinophil % 0.3 % (0.00-5.0); Eosinophil (Absolute #) 0.03 (0-0.5); Hematocrit 46.8 % (35-47); Hemoglobin 15.1 gm/dl (12.0-16.0); Lymphocyte (Absolute #) 1.78 (1.0-4.6); Lymphocytes % 17.9 % (24.0-44.0); Mean Cell Volume 96.7 fl (78-100); Mean Corpuscular Hemoglobin 31.2 pg (26-32); Mean Corpuscular Hgb Concent. 32.3 g/dl (32-36); Mean Platelet Volume 8.9 fl (7.5-11.0); Monocyte (Absolute #) 0.85 (0.0-1.3); Monocytes % 8.5 % (0.0-12.0); Platelet Count 314 K/mm3 (150-450); Red Blood Count 4.84 M/mm3 (4.1-5.4); Red Cell Distribution Width 13.4 % (11.5-14.0)
[2020-06-23 13:57] LABS: INR 1.16 (0.8-3.0); PROTIME 13.1 SECONDS (9.95-12.35)
[2020-06-23 14:04] LABS: INFLUENZA A NEGATIVE (NEGATIVE); INFLUENZA B NEGATIVE (NEGATIVE)
[2020-06-23 14:12] LABS: ALBUMIN 4.7 g/dL (3.5-5.0); ALKALINE PHOSPHATASE 82 U/L (38-126); ANION GAP 11.9 MEQ/L (5-15); BLOOD UREA NITROGEN 10 mg/dL (7-17); CHLORIDE 100 mmol/L (98-107); Carbon Dioxide 31 mmol/L (22-30); Creatinine 1 0.61 mg/dL (0.52-1.04); EST GLOMERULAR FILTRATION RATE > 60.0 ML/MIN; Glucose 98 mg/dL (74-106); NT PRO BNP 39.1 pg/mL (0-900); Potassium 4.2 mmol/L (3.5-5.1); SGOT/AST 27 U/L (14-36); SGPT/ALT 20 U/L (0-35); SODIUM 138 mmol/L (137-145); Total Protein 8.1 g/dL (6.3-8.2)
[2020-06-23 14:26] LABS: D-DIMER QUANTITATIVE < 215 ng/mL (215-500)
[2020-06-23 15:04] VITALS: BP 116/57; PULSE 75
[2020-06-23 15:07] VITALS: O2SAT 97
== END 2020-06-23 15:21 | disposition home or self-care (01) ==
LOC: ED 12:32
DX: R06.02 Shortness of breath (principal); J44.1 Chronic obstructive pulmonary disease with (acute) exacerbation; R07.0 Pain in throat; R43.9 Unspecified disturbances of smell and taste; I10 Essential (primary) hypertension; J45.909 Unspecified asthma, uncomplicated; Z99.81 Dependence on supplemental oxygen; E66.9 Obesity, unspecified; Z79.899 Other long term (current) drug therapy
CPT/HCPCS: 36000; 36415; 71045; 80053; 83605; 83880; 84484; 85025; 85379; 85610; 87040; 87400; 93005; 94760; 96374; 99284; U0003; J2930

== ENCOUNTER 2021-05-26 11:26 | Emergency (ER) | payer OTHER ==
[2021-05-26] MEDS ORDERED: Reglan 10 MG/2 ML IV ONE (11:51)
[2021-05-26] MEDS ORDERED: BENADRYL 50 MG/ML IV ONE (11:51)
[2021-05-26] MEDS ORDERED: TYLENOL 325 MG PO ONE (11:51)
[2021-05-26] MEDS ORDERED: Sodium Chloride 0.9% 500 ML 500 ML IV ONE ×2 (11:53→12:03)
[2021-05-26] MEDS ORDERED: TYLENOL 325 MG ONE (12:03)
[2021-05-26] MEDS ORDERED: Reglan 10 MG/2 ML ONE (12:03)
[2021-05-26] MEDS ORDERED: BENADRYL 50 MG/ML ONE (12:03)
--- NOTE | 2021-05-26 12:17 | XRAY ---
Indication: Frontal headache. Multiple contiguous axial images obtained through the head without contrast. Comparison: April 19, 2019. Normal appearing brain parenchyma, ventricles, and bony calvarium for patient's age. Left maxillary sinus again demonstrates moderate mucosal thickening. Remaining visualized paranasal sinuses and mastoid air cells are clear. Impression: Continued normal CT head without contrast exam with again incidental left maxillary sinus disease.
--- NOTE | 2021-05-26 12:43 | ERPHSYRPT ---
- History of Present Illness Time Seen by Provider: 05/26/21 11:45 Source: patient Exam Limitations: no limitations Patient Subjective Stated Complaint: Headache Triage Nursing Assessment: Patient ambulated back to ED and transferred self to bed. Patient A+O X3. Patient's skin pink, warm and dry. Patient complains of constant aching headache 8/10 for the past 4 days. Patient denies N/V. Physician History: 56 years old female with history of anxiety, off-and-on headaches presented in the ER with 4 days history of generalized headache moderate to severe intensity, sharp in nature, took Tylenol at home which did not work. Usually her headache improves with Tylenol. Denies any visual disturbance, numbness tingling or focal weakness. No neck pain or stiffness/difficulty movements. Headache is similar to previous episodes but staying a little longer than usual. Denies any fever chills or sick contact. Denies any sinus infection. Timing/Duration: day(s) (4), constant, gradual onset, worse Quality: sharpness Head Pain Location: global Severity of Pain-Max: moderate Severity of Pain-Current: moderate Recent Head Trauma: no recent headache/trauma Modifying Factors: Worsens With: exposure to light Associated Symptoms: denies symptoms, No confusion, No dizziness, No fatigue, No facial pain, No fever/chills, No flushing, No light-headedness, No loss of consciousness, No nausea/vomiting, No nasal congestion, No neck pain, No numbness in legs/feet, No rash, No sweating, No scotoma, No seizures, No sinus infection, No sensitive to light, No speech problems, No stiff neck, No trouble walking, No vision changes, No visual disturbance, No weakness Previous symptoms: same symptoms as today Allergies/Adverse Reactions: naproxen Allergy (Mild, Verified 05/26/21 11:33) Nausea Sulfa (Sulfonamide Antibiotics) Allergy (Verified 05/26/21 11:33) Home Medications: Aspirin 81 gm Chew [Baby Aspirin 81 mg Chew] 81 mg PO DAILY 07/28/17 [History] Metoprolol Succinate 50 mg [Toprol Xl 50 MG] 50 mg PO DAILY 07/28/17 [History] Albuterol Sulfate [Ventolin Hfa] 90 mcg IH Q4HPRN PRN 09/30/17 [History] Atorvastatin Calcium [Lipitor] 10 mg PO DAILY 02/11/20 [History] Buspirone HCl 5 mg [Buspar 5 mg] 5 mg PO DAILY 02/11/20 [History] Furosemide 20 mg [Lasix 20 mg] 40 mg PO DAILY 02/11/20 [History] Potassium Chloride 10 Meq Tab* [Klor Con 10 MEQ] 10 meq PO DAILY 02/11/20 [History] Hx Tetanus, Diphtheria Vaccination/Date Given: Yes Hx Influenza Vaccination/Date Given: No Hx Pneumococcal Vaccination/Date Given: Yes Immunizations Up to Date: Yes Travel Risk - International Travel Have you traveled outside of the country in past 3 weeks: No - Coronavirus Screening Are you exhibiting any of the following symptoms?: No Close contact with a COVID-19 positive Pt in past 14-21 Days: No - Vaccine Status Have you recieved a Covid-19 vaccination: Yes 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: [employer] - Vaccination Dates Date of 2cond Vaccination (if applicable): 02/14/2021 - Review of Systems Constitutional: Fatigue, Weakness Eyes: No Symptoms Ears, Nose, & Throat: No Symptoms Respiratory: No Symptoms Cardiac: No Symptoms Abdominal/Gastrointestinal: No Symptoms Genitourinary Symptoms: No Symptoms Musculoskeletal: No Symptoms Neurological: Headache Psychological: Anxiety Hematologic/Lymphatic: No Symptoms Immunological/Allergic: No Symptoms - Past Medical History Pertinent Past Medical History: Yes Neurological History: No Pertinent History ENT History: No Pertinent History Cardiac History: No Pertinent History, Hypertension Respiratory History: Asthma, COPD Endocrine Medical History: No Pertinent History Musculoskeletal History: No Pertinent History GI Medical History: No Pertinent History History: No Pertinent History Psycho-Social History: No Pertinent History Female Reproductive Disorders: Other Other Medical History: Cervical dysplasia - Past Surgical History Past Surgical History: Yes Neuro Surgical History: No Pertinent History Cardiac: No Pertinent History Respiratory: No Pertinent History Gastrointestinal: No Pertinent History Genitourinary: No Pertinent History Musculoskeletal: No Pertinent History Female Surgical History: Hysterectomy Other Surgical History: TONSILECTOMY - Social History Smoking Status: Former smoker How long have you smoked: 40 yrs Exposure to second hand smoke: Yes Drug Use: none Patient Lives Alone: No - Female History Hx Now: No - Nursing Vital Signs Nursing Vital Signs: Initial Vital Signs Temperature 97.2 F 05/26/21 11:34 Pulse Rate 102 H 05/26/21 11:34 Respiratory Rate 18 05/26/21 11:34 Blood Pressure 160/78 05/26/21 11:34 O2 Sat by Pulse Oximetry 98 05/26/21 11:34 Pain Scale Pain Intensity 0 - Physical Exam General Appearance: no apparent distress, alert, anxiety Eye Exam: PERRL/EOMI, eyes nml inspection Ears, Nose, Throat Exam: normal ENT inspection, TMs normal, pharynx normal, moist mucous membranes Neck Exam: normal inspection, non-tender, supple, full range of motion, No meningismus Respiratory Exam: normal breath sounds, lungs clear Cardiovascular Exam: regular rate/rhythm, normal heart sounds Gastrointestinal/Abdominal Exam: soft, No tenderness Extremity Exam: normal inspection, normal range of motion Mental Status Exam: alert, oriented x 3, 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 Exam: normal hearing, normal speech, PERRL, No facial asymmetry Coordination/Gait Exam: normal finger to nose, normal gait, normal cerebellar function, negative Romberg's sign Motor/Sensory Exam: no motor deficit, no sensory deficit, no pronator drift Skin Exam: normal color SpO2 Interpretation: normal SpO2: 98 O2 Delivery: Room Air Ordered Tests: Medication Summary Discontinued Medications Generic Name Dose Route Start Last Admin Trade Name Fabq PRN Reason Stop Dose Admin Acetaminophen 975 mg 05/26/21 11:51 05/26/21 12:20 Acetaminophen 325 Mg Tablet PO 05/26/21 11:52 975 mg STAT ONE Administration Acetaminophen Confirm 05/26/21 12:03 Acetaminophen 325 Mg Tablet Administered 05/26/21 12:04 Dose 975 mg .ROUTE .STK-MED ONE Diphenhydramine HCl 25 mg 05/26/21 11:51 05/26/21 12:19 Diphenhydramine Hcl 50 Mg/Ml Vial IV 05/26/21 11:52 25 mg STAT ONE Administration Diphenhydramine HCl Confirm 05/26/21 12:03 Diphenhydramine Hcl 50 Mg/Ml Vial Administered 05/26/21 12:04 Dose 50 mg .ROUTE .STK-MED ONE Sodium Chloride 500 mls @ 500 mls/hr 05/26/21 11:53 05/26/21 13:18 Sodium Chloride 0.9% 500 Ml IV 05/26/21 12:52 Infused .Q1H ONE Infusion Sodium Chloride Confirm 05/26/21 12:03 Sodium Chloride 0.9% 500 Ml Administered 05/26/21 12:04 Dose 500 mls @ ud IV .STK-MED ONE Metoclopramide HCl 10 mg 05/26/21 11:51 05/26/21 12:16 Metoclopramide Hcl 10 Mg/2 Ml Vial IV 05/26/21 11:52 10 mg STAT ONE Administration Metoclopramide HCl Confirm 05/26/21 12:03 Metoclopramide Hcl 10 Mg/2 Ml Vial Administered 05/26/21 12:04 Dose 10 mg .ROUTE .STK-MED ONE Lab/Rad Data: Laboratory Results 05/26/21 Range/Units 12:41 POC Glucometer 82 (74 to 106) mg/dL - Progress Progress: improved Air Movement: good Progress Note: 05/26/21 13:35 Given migraine cocktail, reevaluation headache improved. CT head is negative. Nonfocal neuro exam. Recommended outpatient follow-up. Blood Culture(s) Obtained: No Antibiotics given: No Counseled pt/family regarding: lab results, diagnosis, need for follow-up, rad results - Departure Departure Disposition: Home Clinical Impression: Headache Qualifiers: Headache type: unspecified Headache chronicity pattern: unspecified pattern Intractability: not intractable Qualified Code(s): R51.9 - Headache, unspecified Condition: Stable Critical Care Time: No Referrals: JOSÉ BROWN [Primary Care Provider] - Follow Up with PCP/3 days Instructions: Headache, Adult (DC) Additional Instructions: take tylenol/Ibuprofen as needed. follow up with PCP for reevaluation early next week. Return to ER for worsening headache, if having dizziness, lightheadedness, neck pain, visual disturbance etc.
[2021-05-26 13:11] VITALS: BP 123/63; PULSE 80
[2021-05-26 13:39] VITALS: O2SAT 98
== END 2021-05-26 13:46 | disposition home or self-care (01) ==
LOC: ED 11:26
DX: R51.9 Headache, unspecified (principal); I10 Essential (primary) hypertension; Z79.899 Other long term (current) drug therapy
CPT/HCPCS: 36000; 70450; 82947; 96374; 99284; J1200; A9270-GY

== ENCOUNTER 2021-12-10 16:34 | Emergency (ER) | payer OTHER ==
[2021-12-10] MEDS ORDERED: PERCOCET TABLET 5/325MG PO ONE (17:11)
[2021-12-10] MEDS ORDERED: PERCOCET TABLET 5/325MG ONE (17:15)
--- NOTE | 2021-12-10 17:35 | ERPHSYRPT ---
- History of Present Illness Time Seen by Provider: 12/10/21 16:45 Source: patient Exam Limitations: no limitations Patient Subjective Stated Complaint: Pt states "About 4 days ago my right leg felt odd and today, I was coming out of work and stepped in a hole with the rig ht leg and it felt like something ripped in there. My right leg is hurting all the way up to my hip. Triage Nursing Assessment: Pt presented alert and oriented X 3, skin pwd. pt ambulates with a limp. Pt extremely tender on medial right calf. PT slightly weaker with dorsifelxtion and extension to right foot. Physician History: 56 years old female presented to the ER with chief complaint of right leg pain after she accidentally stepped in a small hole and it felt she tear/ripped something and causing pain in the calf area at a specific point that pain radiating above and below, moderate to severe sharp, more with palpation/movements and difficulty weightbearing. No obvious swelling of the calf. Denies any bony tenderness/pain. Denies any fall. Method of Injury: other Occurred: this afternoon Quality: sharpness Severity of Pain-Max: moderate Severity of Pain-Current: moderate Lower Extremities Pain: leg: right Modifying Factors: Improves With: immobilization. Worsens With: movement Associated Symptoms: unable to bear weight Allergies/Adverse Reactions: naproxen Allergy (Mild, Verified 05/26/21 11:33) Nausea Sulfa (Sulfonamide Antibiotics) Allergy (Verified 05/26/21 11:33) Home Medications: Aspirin 81 gm Chew [Baby Aspirin 81 mg Chew] 81 mg PO DAILY 07/28/17 [History] Metoprolol Succinate 50 mg [Toprol Xl 50 MG] 50 mg PO DAILY 07/28/17 [History] Albuterol Sulfate [Ventolin Hfa] 90 mcg IH Q4HPRN PRN 09/30/17 [History] Atorvastatin Calcium [Lipitor] 10 mg PO DAILY 02/11/20 [History] Buspirone HCl 5 mg [Buspar 5 mg] 5 mg PO DAILY 02/11/20 [History] Furosemide 20 mg [Lasix 20 mg] 40 mg PO DAILY 02/11/20 [History] Potassium Chloride Tab* [Klor Con 10 MEQ] 10 meq PO DAILY 02/11/20 [History] Hx Tetanus, Diphtheria Vaccination/Date Given: Yes Hx Influenza Vaccination/Date Given: No Hx Pneumococcal Vaccination/Date Given: Yes Immunizations Up to Date: Yes Travel Risk - International Travel Have you traveled outside of the country in past 3 weeks: No - Coronavirus Screening Are you exhibiting any of the following symptoms?: No Close contact with a COVID-19 positive Pt in past 14-21 Days: No - Vaccine Status Have you recieved a Covid-19 vaccination: Yes 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 - Vaccination Dates Date of 2cond Vaccination (if applicable): 02/14/2021 - Review of Systems Constitutional: No Symptoms Ears, Nose, & Throat: No Symptoms Respiratory: No Symptoms Cardiac: No Symptoms Abdominal/Gastrointestinal: No Symptoms Musculoskeletal: Injury, Myalgias Skin: No Symptoms Neurological: No Symptoms Endocrine: No Symptoms Hematologic/Lymphatic: No Symptoms Immunological/Allergic: No Symptoms - Past Medical History Pertinent Past Medical History: Yes Neurological History: No Pertinent History ENT History: No Pertinent History Cardiac History: No Pertinent History, Hypertension Respiratory History: Asthma, COPD Endocrine Medical History: No Pertinent History Musculoskeletal History: No Pertinent History GI Medical History: No Pertinent History History: No Pertinent History Psycho-Social History: No Pertinent History Female Reproductive Disorders: Other Other Medical History: Cervical dysplasia - Past Surgical History Past Surgical History: Yes Neuro Surgical History: No Pertinent History Cardiac: No Pertinent History Respiratory: No Pertinent History Gastrointestinal: No Pertinent History Genitourinary: No Pertinent History Musculoskeletal: No Pertinent History Female Surgical History: Hysterectomy Other Surgical History: TONSILECTOMY. DNC. biopsy. carpel tunnel bilat - Social History Smoking Status: Former smoker How long have you smoked: 40 yrs Exposure to second hand smoke: Yes Drug Use: none Patient Lives Alone: No - Nursing Vital Signs Nursing Vital Signs: Initial Vital Signs Temperature 96.7 F 12/10/21 16:43 Pulse Rate 95 H 12/10/21 16:43 Respiratory Rate 22 12/10/21 16:43 Blood Pressure 149/72 12/10/21 16:43 O2 Sat by Pulse Oximetry 96 12/10/21 16:43 Pain Scale Pain Intensity 6 - Physical Exam General Appearance: no apparent distress, alert Eyes, Ears, Nose, Throat Exam: normal ENT inspection Neck Exam: normal inspection, supple, full range of motion Cardiovascular/Respiratory Exam: chest non-tender, normal breath sounds, regular rate/rhythm Gastrointestinal/Abdominal Exam: non-tender, soft Back Exam: normal inspection, normal range of motion Hips Exam: bilateral: non-tender, normal inspection, normal range of motion, no evidence of injury Legs Exam: right leg: pain (Reproducible with dorsiflexion), soft tissue tenderness (Mid calf), left leg: non-tender, normal range of motion, bilateral leg: normal inspection, no evidence of injury Knees Exam: bilateral knee: non-tender, normal inspection, normal range of motion, no evidence of injury Ankle Exam: bilateral ankle: non-tender, normal inspection, normal range of motion, no evidence of injury Neuro/Tendon Exam: normal sensation, normal motor functions, No normal tendon functions Mental Status Exam: oriented x 3 Skin Exam: normal color SpO2 Interpretation: normal SpO2: 96 O2 Delivery: Room Air Ordered Tests: Active Orders 24 hr Category Date Time Status LOWER LEG Stat Exams 12/10/21 17:29 Taken Medication Summary Discontinued Medications Generic Name Dose Route Start Last Admin Trade Name Sanju PRN Reason Stop Dose Admin Oxycodone/Acetaminophen 1 tab 12/10/21 17:11 12/10/21 17:15 Oxycodone Hcl/Apap 5 Mg/325 Mg Tablet PO 12/10/21 17:12 1 tab STAT ONE Administration Oxycodone/Acetaminophen Confirm 12/10/21 17:15 Oxycodone Hcl/Apap 5 Mg/325 Mg Tablet Administered 12/10/21 17:16 Dose 1 tab .ROUTE .STK-MED ONE - Progress Progress: improved, pain not gone completely Progress Note: 12/10/21 17:33 She is given symptomatic treatment for pain, x-rays negative for fracture dislocation reviewed by me, official report is pending. I believe patient has gastrocnemius tendon rupture. Placed in knee immobilizer, nonweightbearing and outpatient orthopedic surgery follow-up recommended. Counseled pt/family regarding: diagnosis, need for follow-up, rad results - Departure Departure Disposition: Home Clinical Impression: Gastrocnemius tendon rupture Condition: Stable Critical Care Time: No Referrals: CEZAR CARTER LAB MANAGER [Primary Care Provider] - Follow up/PCP as directed (1-2 days for reevaluation) Instructions: Lower Extremity Muscle Strain (DC) Additional Instructions: Take pain medications as needed. Nonweightbearing. Follow-up with Ortho clinic for reevaluation tomorrow morning. Return to ER for intractable pain, swelling etc. [facility] ([facility]) [facility] in [place], [place] Located in: [facility] Address: [address] [place] [address] Opens 8AM Mon Prescriptions: Hydrocodone/Acetaminophen [Hydrocodone-Acetamin 5-325 mg] 1 tab PO Q6HPRN PRN 3 Days #12 tablet MDD 4 PRN Reason: Pain
[2021-12-10] MEDS ORDERED: NORCO 5/325 MG PO ONE (17:40)
[2021-12-10 17:48] VITALS: BP 153/83; PULSE 88; O2SAT 94
[2021-12-10] MEDS ORDERED: NORCO 5/325 MG ONE (17:52)
--- NOTE | 2021-12-11 08:52 | XRAY ---
Indication: Pain following fall. Comparison: None 2 view right lower leg demonstrates small suprapatella and tiny heel spurs. No other bony, articular, or soft tissue abnormalities.
== END 2021-12-10 18:03 | disposition home or self-care (01) ==
LOC: ED 16:34
DX: S86.111A Strain of other muscle(s) and tendon(s) of posterior muscle group at lower leg level, right leg, initial encounter (principal); W18.42XA Slipping, tripping and stumbling without falling due to stepping into hole or opening, initial encounter; M79.604 Pain in right leg; I10 Essential (primary) hypertension; J44.9 Chronic obstructive pulmonary disease, unspecified; Z79.899 Other long term (current) drug therapy; Z79.891 Long term (current) use of opiate analgesic
CPT/HCPCS: 73590; 99283; L1830; A9270-GY

== ENCOUNTER 2023-10-27 21:02 | Emergency (ER) | payer OTHER ==
[2023-10-27 22:08] VITALS: RESP 20; TEMP 97.3
[2023-10-27 22:26] VITALS: BP 143/66; PULSE 91; O2SAT 95
[2023-10-27] MEDS ORDERED: Vibramycin 100 MG ONE (22:27)
[2023-10-27] MEDS: Vibramycin 100 MG PO ONE (22:30)
--- NOTE | 2023-10-27 22:36 | ERPHSYRPT ---
- History of Present Illness Time Seen by Provider: 10/27/23 22:15 Source: patient Patient Subjective Stated Complaint: pt states that she seen a scab on her leg 2 days ago and now she thinks it infected Triage Nursing Assessment: pt ambulated into the er; pt is axo x4; no respiratory distress present; skin PDW; 2 pustules present to RLE; reddness and warmth to RLE; vitals wnl Physician History: 58yo f presents to ED via private vehicle for infection of right leg. Pt reports she noticed an erythematous region on her right leg below her knee 2d ago. Pt states it started as a small scab and has become more red and acid strength inspector color, now darker as well. Pt reports some associated pain at the site but denies any knee or popliteal fossa discomfort. Pt reports she did have possibility of tick exposure as she was clearing brush around her property, however she did not see a tick on her leg at any time. Pt currently denies cp, soa, n/v/abdominal pain, fevers. Pt has been applying antibiotic ointment and cleaning the area w/ alcohol regularly. Timing/Duration: day(s) (2) Quality: painful Severity: mild Location: extremities Possible Causes: no cause identified Allergies/Adverse Reactions: naproxen Allergy (Mild, Verified 10/27/23 21:48) Nausea Sulfa (Sulfonamide Antibiotics) Allergy (Verified 10/27/23 21:48) Home Medications: Aspirin 81 gm Chew [Baby Aspirin 81 mg Chew] 81 mg PO DAILY 07/28/17 [History] Metoprolol Succinate 50 mg [Toprol Xl 50 MG] 50 mg PO DAILY 07/28/17 [History] Albuterol Sulfate [Ventolin Hfa] 90 mcg IH Q4HPRN PRN 09/30/17 [History] Furosemide 20 mg [Lasix 20 mg] 40 mg PO DAILY 02/11/20 [History] Potassium Chloride Tab* [Klor Con 10 MEQ] 20 meq PO DAILY 02/11/20 [History] Budesonide/Formoterol Fumarate [Budesonide-Formoterol 160-4.5] 10.2 gm IH DAILY 10/27/23 [History] Bupropion HCl Xl 150 mg [Wellbutrin XL 150 MG] 150 mg PO BID 10/27/23 [History] Rosuvastatin Calcium 5 mg PO DAILY 10/27/23 [History] Hx Tetanus, Diphtheria Vaccination/Date Given: No Hx Influenza Vaccination/Date Given: No Hx Pneumococcal Vaccination/Date Given: No Immunizations Up to Date: No Travel Risk - International Travel Have you traveled outside of the country in past 3 weeks: No - Emerging Infectious Disease Are you exhibiting symptoms associated with any current EIDs: No - Review of Systems Constitutional: No Symptoms Respiratory: No Symptoms Cardiac: No Symptoms Abdominal/Gastrointestinal: No Symptoms Skin: Skin Lesions - Past Medical History Pertinent Past Medical History: Yes Neurological History: No Pertinent History ENT History: No Pertinent History Cardiac History: No Pertinent History, Hypertension Respiratory History: Asthma, COPD, Emphysema Endocrine Medical History: No Pertinent History Musculoskeletal History: No Pertinent History GI Medical History: No Pertinent History History: No Pertinent History Psycho-Social History: No Pertinent History Female Reproductive Disorders: Other Other Medical History: Cervical dysplasia - Past Surgical History Past Surgical History: Yes Neuro Surgical History: No Pertinent History Cardiac: No Pertinent History Respiratory: No Pertinent History Gastrointestinal: No Pertinent History Genitourinary: No Pertinent History Musculoskeletal: No Pertinent History Female Surgical History: Hysterectomy Other Surgical History: TONSILECTOMY. DNC. biopsy. carpel tunnel bilat - Social History Smoking Status: Current every day smoker How long have you smoked: 40 yrs Exposure to second hand smoke: Yes Drug Use: none Patient Lives Alone: No - Social Determinants of Health Do you worry about a steady place to live?: No Do you have any problems with any of the following?: No known problems In the past 12 months,have you had to go without utilities?: No Transportation Issues: No Has anyone in your support network made you feel unsafe?: No Have you or anyone in your house had to go without enough: No - Nursing Vital Signs Nursing Vital Signs: Initial Vital Signs Temperature 97.3 F 10/27/23 21:49 Pulse Rate 98 H 10/27/23 21:49 Respiratory Rate 20 10/27/23 21:49 Blood Pressure 142/64 10/27/23 21:49 O2 Sat by Pulse Oximetry 94 L 10/27/23 21:49 Pain Scale Pain Intensity 6 - Physical Exam General Appearance: no apparent distress, alert Respiratory Exam: normal breath sounds, airway intact, No chest tenderness, No respiratory distress Cardiovascular Exam: regular rate/rhythm, normal heart sounds, capillary refill <2 sec Neurologic Exam: alert, oriented x 3, cooperative Skin Exam: warm, dry, other (Right LE, medial aspect overlying tibial plateau - 3cm round area of erythema w/ darkening in center, no drainage appreciated, non- fluctuant, small scab present, no bleeding or oozing, mildly TTP, no proximal streaking) SpO2 Interpretation: normal SpO2: 95 O2 Delivery: Nasal Cannula (2L baseline) Ordered Tests: Medication Summary Discontinued Medications Generic Name Dose Route Start Last Admin Trade Name Freq PRN Reason Stop Dose Admin Doxycycline Hyclate 100 mg 10/27/23 22:28 10/27/23 22:30 Doxycycline Hyclate 100 Mg Tablet PO 10/27/23 22:29 100 mg STAT ONE Administration Doxycycline Hyclate Confirm 10/27/23 22:27 Doxycycline Hyclate 100 Mg Tablet Administered 10/27/23 22:28 Dose 100 mg .ROUTE .STK-MED ONE - Progress Progress: unchanged Progress Note: 10/27/23 22:32 possible tick exposure, will order lyme disease panel and start doxycycline course right lower extremity skin infection start doxycycline 100mg twice per day x 10days continue antibiotic ointment at home continue to keep wound clean and dry recommend follow up w/ Daily Storey this week for re-examination of infected site return to ED if: develop fever that does not resolve w/ tylenol/ibuprofen, develop severe dizziness/blurry vision/headache that does not resolve with pain medication, become unable to walk on the effected leg Counseled pt/family regarding: diagnosis, need for follow-up Medical Desision Making - Diagnostic Testing Diagnostic test were ordered, analyzed, and reviewed by me: No - Risk of complications Low Risk: Low risk of morbidity from additional dx testing or treatment - Departure Departure Disposition: Home Clinical Impression: Skin infection Condition: Stable Critical Care Time: No Referrals: CEZAR STOREY NP [Primary Care Provider] - Follow up/PCP as directed Instructions: Cellulitis (Skin Infection), Adult ED Additional Instructions: right lower extremity skin infection start doxycycline 100mg twice per day x 10days continue antibiotic ointment at home continue to keep wound clean and dry recommend follow up giacomo Storey this week for re-examination of infected site return to ED if: develop fever that does not resolve w/ tylenol/ibuprofen, develop severe dizziness/blurry vision/headache that does not resolve with pain medication, become unable to walk on the effected leg Prescriptions: Doxycycline Hyclate 100 mg [Vibramycin 100 MG] 100 mg PO BID 10 Days #19 tab
== END 2023-10-27 22:50 | disposition home or self-care (01) ==
LOC: ED 21:02
DX: L08.9 Local infection of the skin and subcutaneous tissue, unspecified (principal); I10 Essential (primary) hypertension; Z79.899 Other long term (current) drug therapy; Z72.0 Tobacco use
CPT/HCPCS: 36415; 86618; 99282; A9270-GY

== ENCOUNTER 2024-05-22 20:37 | Emergency (ER) | payer OTHER ==
--- NOTE | 2024-05-22 21:02 | ERPHSYRPT ---
- History of Present Illness Time Seen by Provider: 05/22/24 21:02 Source: patient, family Exam Limitations: no limitations Physician History: This is an obese white female patient who has a history of COPD, hyperlipidemia, anxiety, hypertension, emphysema, depression and continues to be a daily smoker of tobacco and presents with left anterior chest pain, left jaw pain and left arm pain. Patient has a history of PVCs and PACs. Patient's mother recently and she is under a lot of stress. Patient does state her symptoms have been intermittent and describes it as an achiness. What the patient is mostly concerned about is a myocardial infarction. Patient did tell me that she started prednisone in the last few days secondary to coughing episodes. This was recommended to her by her developer prover mechanical Severity: mild Associated Symptoms: chest pain (Mild left anterior chest) Allergies/Adverse Reactions: naproxen Allergy (Mild, Verified 05/22/24 21:01) Nausea Sulfa (Sulfonamide Antibiotics) Allergy (Verified 05/22/24 21:01) Home Medications: Aspirin 81 gm Chew [Baby Aspirin 81 mg Chew] 81 mg PO DAILY 07/28/17 [History] Metoprolol Succinate 50 mg [Toprol Xl 50 MG] 50 mg PO DAILY 07/28/17 [History] Albuterol Sulfate [Ventolin Hfa] 90 mcg IH Q4HPRN PRN 09/30/17 [History] Furosemide 20 mg [Lasix 20 mg] 40 mg PO DAILY 02/11/20 [History] Potassium Chloride Tab* [Klor Con 10 MEQ] 20 meq PO DAILY 02/11/20 [History] Budesonide/Formoterol Fumarate [Budesonide-Formoterol 160-4.5] 10.2 gm IH DAILY 10/27/23 [History] Rosuvastatin Calcium 5 mg PO DAILY 10/27/23 [History] Diazepam [Valium] 5 mg PO DAILY 05/22/24 [History] predniSONE [Prednisone] 20 mg PO DAILY 05/22/24 [History] Hx Tetanus, Diphtheria Vaccination/Date Given: No Hx Influenza Vaccination/Date Given: No Hx Pneumococcal Vaccination/Date Given: No Travel Risk - International Travel Have you traveled outside of the country in past 3 weeks: No - Emerging Infectious Disease Are you exhibiting symptoms associated with any current EIDs: No - Review of Systems Constitutional: No Symptoms Eyes: No Symptoms Ears, Nose, & Throat: No Symptoms Respiratory: No Symptoms Cardiac: Chest Pain (Mild left anterior chest. Currently, patient does not have significant pain) Abdominal/Gastrointestinal: No Symptoms Genitourinary Symptoms: No Symptoms Musculoskeletal: No Symptoms Skin: No Symptoms Neurological: No Symptoms Psychological: No Symptoms Endocrine: No Symptoms Hematologic/Lymphatic: No Symptoms Immunological/Allergic: No Symptoms All Other Systems: Reviewed and Negative - Past Medical History Pertinent Past Medical History: Yes Neurological History: No Pertinent History ENT History: No Pertinent History Cardiac History: No Pertinent History, Hypertension Respiratory History: Asthma, COPD, Emphysema Endocrine Medical History: No Pertinent History Musculoskeletal History: No Pertinent History GI Medical History: No Pertinent History History: No Pertinent History Psycho-Social History: No Pertinent History Female Reproductive Disorders: Other Other Medical History: Cervical dysplasia - Past Surgical History Past Surgical History: Yes Neuro Surgical History: No Pertinent History Cardiac: No Pertinent History Respiratory: No Pertinent History Gastrointestinal: No Pertinent History Genitourinary: No Pertinent History Musculoskeletal: No Pertinent History Female Surgical History: Hysterectomy Other Surgical History: TONSILECTOMY. DNC. biopsy. carpel tunnel bilat - Social History Smoking Status: Current every day smoker How long have you smoked: 40 yrs Exposure to second hand smoke: Yes Drug Use: none Patient Lives Alone: No - Social Determinants of Health Do you worry about a steady place to live?: No In the past 12 months,have you had to go without utilities?: No Transportation Issues: No Has anyone in your support network made you feel unsafe?: No Have you or anyone in your house had to go without enough: No - Nursing Vital Signs Nursing Vital Signs: Initial Vital Signs Pulse Rate 81 05/22/24 21:00 Respiratory Rate 22 05/22/24 21:00 Blood Pressure 141/78 05/22/24 21:00 O2 Sat by Pulse Oximetry 94 L 05/22/24 21:00 Pain Scale Pain Intensity 5 - Physical Exam General Appearance: no apparent distress, alert, anxiety, obese Eye Exam: PERRL/EOMI, eyes nml inspection Ears, Nose, Throat Exam: normal ENT inspection, moist mucous membranes Neck Exam: normal inspection, non-tender, supple, full range of motion Respiratory Exam: normal breath sounds, lungs clear, airway intact, No chest tenderness, No respiratory distress Cardiovascular Exam: regular rate/rhythm, normal heart sounds, normal peripheral pulses Gastrointestinal/Abdomen Exam: soft, normal bowel sounds, No tenderness Pelvic Exam: not done Rectal Exam: not done Back Exam: normal inspection, normal range of motion, No CVA tenderness, No vertebral tenderness Extremity Exam: normal inspection, normal range of motion, pelvis stable Neurologic Exam: alert, oriented x 3, cooperative, 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 tested, normal mood/affect, nml cerebellar function, nml station & gait, sensation nml Skin Exam: normal color, warm, dry Lymphatic Exam: No adenopathy SpO2 Interpretation: normal O2 Delivery: Room Air - Course Nursing assessment & vital signs reviewed: Yes EKG Interpreted by Me: RATE ([id number]), Sinus Rhythm, NORMAL AXIS, NORMAL INTERVALS, NORMAL QRS, NORMAL ST-T, Other (No acute ischemia on today's twelve-lead EKG.) Ordered Tests: Active Orders 24 hr Category Date Time Status Night Club Manager STAT Care 05/22/24 21:32 Active EKG-ER Only STAT Care 05/22/24 21:31 Active IV Insertion STAT Care 05/22/24 21:31 Active Pulse Oximetry (ED) STAT Care 05/22/24 21:31 Active CHEST 1 VIEW (PORTABLE) Stat Exams 05/22/24 21:32 Taken CBC W DIFF Stat Lab 05/22/24 21:31 Completed CMP Stat Lab 05/22/24 21:40 Completed MAGNESIUM Stat Lab 05/22/24 21:40 Completed NT PRO BNPII Stat Lab 05/22/24 21:40 Completed TROPONIN Q4H Lab 05/22/24 21:40 Completed TROPONIN Q4H Lab 05/23/24 01:45 Ordered TROPONIN Q4H Lab 05/23/24 05:45 Ordered Medication Summary Discontinued Medications Generic Name Dose Route Start Last Admin Trade Name Freq PRN Reason Stop Dose Admin Aspirin 243 mg 05/22/24 21:33 05/22/24 21:40 Aspirin 81 Mg Tab.Chew PO 05/22/24 21:34 243 mg STAT ONE Administration Aspirin Confirm 05/22/24 21:40 Aspirin 81 Mg Tab.Chew Administered 05/22/24 21:41 Dose 243 mg .ROUTE .[email or web address] ONE Lab/Rad Data: Laboratory Result Diagrams 05/22/24 21:31 05/22/24 21:40 Laboratory Results 05/22/24 05/22/24 05/22/24 Range/Units 21:40 21:40 21:31 WBC 12.8 H (3.98-10.04) x10^3/uL RBC 5.05 (3.93-5.22) x10^6/uL Hgb 15.6 (11.2-15.7) g/dL Hct 47.4 H (34.1-44.9) % MCV 93.9 (79.4-94.8) fL MCH 30.9 (25.6-32.2) pg MCHC 32.9 (32.2-35.5) g/dL RDW 12.7 (11.7-14.4) % Plt Count 372 H (182-369) x10^3/uL MPV 8.8 L (9.4-12.3) fL Gran % 57.2 (34.0-71.1) % Immature Gran % (Auto) 0.5 H (0.001-0.429) % Nucleat RBC Rel Count 0.0 (0.00-0.2) % Eos # (Auto) 0.12 (0.04-0.36) x10^3/uL Immature Gran # (Auto) 0.07 H (0.001-0.031) x10^3u/L Absolute Lymphs (auto) 4.48 H (1.18-3.74) x10^3/uL Absolute Monos (auto) 0.71 (0.24-0.86) x10^3/uL Absolute Nucleated RBC 0.00 (0.00-0.012) x10^3u/L Lymphocytes % 35.1 (19.3-51.7) % Monocytes % 5.6 (4.7-12.5) % Eosinophils % 0.9 (0.7-5.8) % Basophils % 0.7 (0.1-1.2) % Absolute Granulocytes 7.30 H (1.56-6.13) x10^3/uL Basophils # 0.09 H (0.01-0.08) x10^3/uL Sodium 138 (135-145) mmol/L Potassium 4.1 (3.5-5.1) mmol/L Chloride 102 (98-107) mmol/L Carbon Dioxide 27 (22-30) mmol/L Anion Gap 12.9 (5-15) MEQ/L BUN 13 (7-17) mg/dL Creatinine 0.57 (0.52-1.04) mg/dL Estimated GFR 103.3 ML/MIN Glucose 96 (74-106) mg/dL Calcium 10.0 (8.4-10.2) mg/dL Magnesium 1.9 (1.6-2.3) mg/dL Total Bilirubin 0.40 (0.2-1.3) mg/dL AST 30 (14-36) U/L ALT 24 (0-35) U/L Alkaline Phosphatase 93 (38-126) U/L Troponin I < 0.012 (0.000-0.033) ng/mL NT-Pro-B Natriuret Pep < 20.0 (<300) pg/mL Serum Total Protein 7.3 (6.3-8.2) g/dL Albumin 4.4 (3.5-5.0) g/dL - Progress Progress: improved, re-examined Progress Note: 05/22/24 23:04 My medical decision making and the assignment of moderate complexity to this patient's medical issue today is based on review of the patient's past medical history, review of the patient's medication list, review the patient drug allergy list, history present illness and physical findings on examination. The workup in this patient includes chest x-ray, twelve-lead EKG, troponin level, BNP, CBC, CMP and magnesium level. Differential diagnosis includes but is not limited to pneumonia, electrolyte abnormalities, arrhythmia, upper respiratory infection, myocardial infarction I interpreted the patient's chest x-ray preliminary report. No evidence of any acute cardiopulmonary process. I interpreted the patient's laboratory data results. Patient does have a leukocytosis. However she started steroids 3 days ago. She is afebrile. She has no evidence of any acute myocardial infarction. The patient and I agree that we will send a prescription of cefdinir to her pharmacy. If the symptoms do not improve with the steroid she may start the cefdinir antibiotics as prescribed. Counseled pt/family regarding: lab results, diagnosis, need for follow-up, rad results Medical Desision Making - Independent Historian Additional History obtained from: Relative/friend - Diagnostic Testing Diagnostic test were ordered, analyzed, and reviewed by me: Yes Radiological Interpretation: Interpreted by me, Teleradiologist Report - Risk of complications The pt has a mod risk of morbidity or mortality based on: Need for prescription drug management - Departure Departure Disposition: Home Clinical Impression: Nonspecific chest pain, Leukocytosis Condition: Stable Critical Care Time: No Referrals: [facility] [employer] AND [employer] INSTRUCTOR [Primary Care Provider] - Follow up/PCP as directed Additional Instructions: Drink plenty fluids. Avoid exposure to any type of smoke. If in the next 24 to 48 hours her symptoms do not improve on the steroids, fill your cefdinir antibio tics. Call your primary care provider on 05/15/2024, to make arrangements for follow-up appointment to be seen in the next 3 to 5 days Prescriptions: Cefdinir 300 mg PO BID #[id number] cap
[2024-05-22 21:22] VITALS: TEMP 97.4
[2024-05-22] MEDS ORDERED: BABY ASPIRIN 81 MG CHEW ONE (21:40)
[2024-05-22] MEDS: BABY ASPIRIN 81 MG CHEW PO ONE (21:40)
[2024-05-22 21:45] LABS: BASOPHIL % 0.7 % (0.1-1.2); Basophil (Absolute #) 0.09 x10^3/uL (0.01-0.08); Eosinophil % 0.9 % (0.7-5.8); Eosinophil (Absolute #) 0.12 x10^3/uL (0.04-0.36); Hematocrit 47.4 % (34.1-44.9); Hemoglobin 15.6 g/dL (11.2-15.7); IMMATURE GRAN # 0.07 x10^3u/L (0.001-0.031); IMMATURE GRAN % 0.5 % (0.001-0.429); Lymphocyte (Absolute #) 4.48 x10^3/uL (1.18-3.74); Lymphocytes % 35.1 % (19.3-51.7); Mean Cell Volume 93.9 fL (79.4-94.8); Mean Corpuscular Hemoglobin 30.9 pg (25.6-32.2); Mean Corpuscular Hgb Concent. 32.9 g/dL (32.2-35.5); Mean Platelet Volume 8.8 fL (9.4-12.3); Monocyte (Absolute #) 0.71 x10^3/uL (0.24-0.86); Monocytes % 5.6 % (4.7-12.5); Neutrophil % 57.2 % (34.0-71.1); Platelet Count 372 x10^3/uL (182-369); Red Blood Count 5.05 x10^6/uL (3.93-5.22); Red Cell Distribution Width 12.7 % (11.7-14.4); White Blood Count 12.8 x10^3/uL (3.98-10.04)
[2024-05-22 22:08] LABS: ALBUMIN 4.4 g/dL (3.5-5.0); ALKALINE PHOSPHATASE 93 U/L (38-126); ANION GAP 12.9 MEQ/L (5-15); BLOOD UREA NITROGEN 13 mg/dL (7-17); CHLORIDE 102 mmol/L (98-107); Carbon Dioxide 27 mmol/L (22-30); Creatinine 1 0.57 mg/dL (0.52-1.04); EST GLOMERULAR FILTRATION RATE 103.3 ML/MIN; Glucose 96 mg/dL (74-106); MAGNESIUM 1.9 mg/dL (1.6-2.3); NT PRO BNPII < 20.0 pg/mL (<300); Potassium 4.1 mmol/L (3.5-5.1); SGOT/AST 30 U/L (14-36); SGPT/ALT 24 U/L (0-35); SODIUM 138 mmol/L (135-145); Total Protein 7.3 g/dL (6.3-8.2)
[2024-05-22 23:15] VITALS: BP 152/78; PULSE 85; RESP 18; O2SAT 95
--- NOTE | 2024-05-23 08:20 | XRAY ---
Indication: Chest pain. Short of breath. Comparison: June 23, 2020 Portable chest unchanged again hyperinflated with minimal bibasilar fibrosis/scarring and left upper lobe calcified granuloma. Heart not enlarged. Bony thorax intact again with osteopenia and degenerative changes. No new/acute findings.
== END 2024-05-22 23:25 | disposition home or self-care (01) ==
LOC: ED 20:37
DX: R07.9 Chest pain, unspecified (principal); F17.200 Nicotine dependence, unspecified, uncomplicated; D72.829 Elevated white blood cell count, unspecified
CPT/HCPCS: 36415; 71045; 80053; 83735; 83880; 84484; 85025; 93005; 93041; 94760; 99284; 99285; A9270-GY

== ENCOUNTER 2024-06-02 20:11 | Emergency (ER) | payer OTHER ==
[2024-06-02 20:22] VITALS: TEMP 96.1
--- NOTE | 2024-06-02 20:34 | ERPHSYRPT ---
- History of Present Illness Time Seen by Provider: 06/02/24 20:29 Source: patient Exam Limitations: no limitations Physician History: 59-year-old female history of COPD requires 3 L nasal cannula oxygen at home presents to our emergency department via EMS for evaluation of sharp left-sided chest pain and shortness of breath. Patient received 225 mg Solu-Medrol and a D uoNeb and route to our ED. No history of PE DVT. No associated nausea vomiting or diaphoresis. Pain was intermittent. Pain is not constant. No trauma no fever. Patient reports that she quit smoking shortly after her mother approximately 1 month ago. Patient is currently on 5 L nasal cannula. Saturation on oxygen is 92 to 93%. Patient otherwise feels well. She voices no other complaints or concerns at this time. Portions of this note were created with voice recognition technology. There may be grammatical, spelling, punctuation or sound alike errors Timing/Duration: today Activities at Onset: none Severity of Dyspnea-Max: moderate Severity of Dyspnea-Current: moderate Possible Cause: occasional episodes Modifying Factors: Improves With: albuterol nebulizer Associated Symptoms: cough (Cough) Allergies/Adverse Reactions: naproxen Allergy (Mild, Verified 06/02/24 20:22) Nausea Sulfa (Sulfonamide Antibiotics) Allergy (Verified 06/02/24 20:22) Home Medications: Aspirin 81 gm Chew [Baby Aspirin 81 mg Chew] 81 mg PO DAILY 07/28/17 [History] Metoprolol Succinate 50 mg [Toprol Xl 50 MG] 50 mg PO DAILY 07/28/17 [History] Albuterol Sulfate [Ventolin Hfa] 90 mcg IH Q4HPRN PRN 09/30/17 [History] Furosemide 20 mg [Lasix 20 mg] 40 mg PO DAILY 02/11/20 [History] Potassium Chloride Tab* [Klor Con 10 MEQ] 20 meq PO DAILY 02/11/20 [History] Budesonide/Formoterol Fumarate [Budesonide-Formoterol 160-4.5] 10.2 gm IH DAILY 10/27/23 [History] Diazepam [Valium] 5 mg PO HS 05/22/24 [History] Hx Tetanus, Diphtheria Vaccination/Date Given: No Hx Influenza Vaccination/Date Given: No Hx Pneumococcal Vaccination/Date Given: No Travel Risk - Emerging Infectious Disease Are you exhibiting symptoms associated with any current EIDs: No - Review of Systems Constitutional: No Symptoms, No Fever, No Chills Eyes: No Symptoms Ears, Nose, & Throat: No Symptoms Respiratory: No Symptoms, No Cough, No Dyspnea Cardiac: No Symptoms, No Chest Pain, No Edema, No Syncope Abdominal/Gastrointestinal: No Symptoms, No Abdominal Pain, No Nausea, No Vomiting, No Diarrhea Genitourinary Symptoms: No Symptoms, No Dysuria Musculoskeletal: No Symptoms (This does not go away and), No Back Pain, No Neck Pain Skin: No Symptoms, No Rash Neurological: No Symptoms, No Dizziness, No Focal Weakness, No Sensory Changes Psychological: No Symptoms Endocrine: No Symptoms Hematologic/Lymphatic: No Symptoms (Taken more) Immunological/Allergic: No Symptoms All Other Systems: Reviewed and Negative - Past Medical History Pertinent Past Medical History: Yes Neurological History: No Pertinent History ENT History: No Pertinent History Cardiac History: No Pertinent History, Hypertension Respiratory History: Asthma, COPD, Emphysema Endocrine Medical History: No Pertinent History Musculoskeletal History: No Pertinent History GI Medical History: No Pertinent History History: No Pertinent History Psycho-Social History: No Pertinent History Female Reproductive Disorders: Other Other Medical History: Cervical dysplasia - Past Surgical History Past Surgical History: Yes Neuro Surgical History: No Pertinent History Cardiac: No Pertinent History Respiratory: No Pertinent History Gastrointestinal: No Pertinent History Genitourinary: No Pertinent History Musculoskeletal: No Pertinent History Female Surgical History: Hysterectomy Other Surgical History: TONSILECTOMY. DNC. biopsy. carpel tunnel bilat - Social History Smoking Status: Current every day smoker How long have you smoked: 40 yrs Exposure to second hand smoke: Yes Drug Use: none Patient Lives Alone: No - Social Determinants of Health Do you worry about a steady place to live?: No In the past 12 months,have you had to go without utilities?: No Transportation Issues: No Has anyone in your support network made you feel unsafe?: No Have you or anyone in your house had to go without enough: No - Nursing Vital Signs Nursing Vital Signs: Initial Vital Signs Temperature 96.1 F 06/02/24 20:20 Pulse Rate 102 H 06/02/24 20:20 Respiratory Rate 30 H 06/02/24 20:20 Blood Pressure 122/58 06/02/24 20:20 O2 Sat by Pulse Oximetry 92 L 06/02/24 20:20 Pain Scale Pain Intensity 4 - Physical Exam General Appearance: no apparent distress, alert Eye Exam: PERRL/EOMI Ears, Nose, Throat Exam: hearing grossly normal, normal ENT inspection, normal pharynx (Silvano) Neck Exam: normal inspection, supple Respiratory Exam: diminished breath sounds, rhonchi, wheezing Cardiovascular/Chest Exam: normal heart sounds, regular rate/rhythm Abdominal/Gastrointestinal Exam: soft, No tenderness, No distention, No mass Extremity Exam: non-tender, normal range of motion, normal inspection, no calf tenderness, no pedal edema Neurologic Exam: alert, oriented x 3, cooperative, bridge 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 operator II-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 nml as tested, sensation nml, No motor deficits Skin Exam: normal color, warm, No dry Lymphatic Exam: No adenopathy SpO2 Interpretation: normal SpO2: 92 O2 Delivery: Room Air - Course Nursing assessment & vital signs reviewed: Yes EKG Interpreted by Me: RATE ([id number]), Sinus Tach, NORMAL AXIS, NORMAL INTERVALS, NORMAL QRS Ordered Tests: Active Orders 24 hr Category Date Time Status AMA [Release AMA] OM.NOW Care 06/03/24 00:02 Ordered Extension Forester STAT Care 06/02/24 20:28 Active EKG-ER Only STAT Care 06/02/24 20:27 Active IV Insertion STAT Care 06/02/24 20:27 Active Pulse Oximetry (ED) STAT Care 06/02/24 20:27 Active CHEST WITH CONTRAST [CT] Stat Exams 06/02/24 21:39 Completed BLOOD CULTURE Stat Lab 06/02/24 20:55 Received CBC W DIFF Stat Lab 06/02/24 20:55 Completed CMP Stat Lab 06/02/24 20:55 Completed D-DIMER QUANTITATIVE Stat Lab 06/02/24 20:55 Completed NT PRO BNPII Stat Lab 06/02/24 20:55 Completed TROPONIN Q4H Lab 06/02/24 20:55 Completed TROPONIN Q4H Lab 06/03/24 00:30 Ordered TROPONIN Q4H Lab 06/03/24 04:30 Ordered Respiratory Therapy Assessment DAILY RT 06/02/24 20:49 Active Medication Summary Discontinued Medications Generic Name Dose Route Start Last Admin Trade Name Freq PRN Reason Stop Dose Admin Albuterol Sulfate 2.5 mg 06/02/24 20:27 06/02/24 20:46 Albuterol Sulfate 2.5 Mg/3 Ml Neb IH 06/02/24 20:28 2.5 mg STAT ONE Administration Albuterol Sulfate Confirm 06/02/24 20:46 Albuterol Sulfate 2.5 Mg/3 Ml Neb Administered 06/02/24 20:47 Dose 2.5 mg IH .STK-MED ONE Ceftriaxone Sodium 2 gm in 100 mls @ 200 mls/hr 06/02/24 20:27 06/02/24 20:42 Rocephin 2 Gm/100 Ml Nacl IV 06/02/24 20:56 200 mls/hr STAT ONE 200 mls/hr Administration Azithromycin 500 mg in 250 mls @ 250 mls/hr 06/02/24 20:27 06/02/24 21:20 Zithromax 500 Mg/ 250 Ml Nacl Premix IV 06/02/24 21:26 250 ml/hr STAT STA 250 mls/hr Administration Ceftriaxone Sodium Confirm 06/02/24 20:41 Rocephin 2 Gm/100 Ml Nacl Administered 06/02/24 20:42 Dose 2 gm in 100 mls @ ud IV .STK-MED ONE Azithromycin Confirm 06/02/24 21:16 Zithromax 500 Mg/ 250 Ml Nacl Premix Administered 06/02/24 21:17 Dose 500 mg in 250 mls @ ud IV .STK-MED ONE Lab/Rad Data: Laboratory Result Diagrams 06/02/24 20:55 06/02/24 20:55 Laboratory Results 06/02/24 06/02/24 06/02/24 Range/Units 20:55 20:55 20:55 WBC (3.98-10.04) x10^3/uL RBC (3.93-5.22) x10^6/uL Hgb (11.2-15.7) g/dL Hct (34.1-44.9) % MCV (79.4-94.8) fL MCH (25.6-32.2) pg MCHC (32.2-35.5) g/dL RDW (11.7-14.4) % Plt Count (182-369) x10^3/uL MPV (9.4-12.3) fL Gran % (34.0-71.1) % Immature Gran % (Auto) (0.001-0.429) % Nucleat RBC Rel Count (0.00-0.2) % Eos # (Auto) (0.04-0.36) x10^3/uL Immature Gran # (Auto) (0.001-0.031) x10^3u/L Absolute Lymphs (auto) (1.18-3.74) x10^3/uL Absolute Monos (auto) (0.24-0.86) x10^3/uL Absolute Nucleated RBC (0.00-0.012) x10^3u/L Lymphocytes % (19.3-51.7) % Monocytes % (4.7-12.5) % Eosinophils % (0.7-5.8) % Basophils % (0.1-1.2) % Absolute Granulocytes (1.56-6.13) x10^3/uL Basophils # (0.01-0.08) x10^3/uL D-Dimer 0.78 H* (0.0-0.50) mg/L Sodium (135-145) mmol/L Potassium (3.5-5.1) mmol/L Chloride (98-107) mmol/L Carbon Dioxide (22-30) mmol/L Anion Gap (5-15) MEQ/L BUN (7-17) mg/dL Creatinine (0.52-1.04) mg/dL Estimated GFR ML/MIN Glucose (74-106) mg/dL Calcium (8.4-10.2) mg/dL Total Bilirubin (0.2-1.3) mg/dL AST (14-36) U/L ALT (0-35) U/L Alkaline Phosphatase (38-126) U/L Troponin I < 0.012 (0.000-0.033) ng/mL NT-Pro-B Natriuret Pep 56.0 (<300) pg/mL Serum Total Protein (6.3-8.2) g/dL Albumin (3.5-5.0) g/dL Influenza Type A Ag NEGATIVE (NEGATIVE) Influenza Type B Ag NEGATIVE (NEGATIVE) RSV (PCR) NEGATIVE (NEGATIVE) SARS-CoV-2 (PCR) NEGATIVE (NEGATIVE) 06/02/24 06/02/24 Range/Units 20:55 20:55 WBC 14.8 H (3.98-10.04) x10^3/uL RBC 4.61 (3.93-5.22) x10^6/uL Hgb 14.1 (11.2-15.7) g/dL Hct 44.5 (34.1-44.9) % MCV 96.5 H (79.4-94.8) fL MCH 30.6 (25.6-32.2) pg MCHC 31.7 L (32.2-35.5) g/dL RDW 12.6 (11.7-14.4) % Plt Count 268 (182-369) x10^3/uL MPV 8.8 L (9.4-12.3) fL Gran % 86.3 H (34.0-71.1) % Immature Gran % (Auto) 0.4 (0.001-0.429) % Nucleat RBC Rel Count 0.0 (0.00-0.2) % Eos # (Auto) 0.03 L (0.04-0.36) x10^3/uL Immature Gran # (Auto) 0.06 H (0.001-0.031) x10^3u/L Absolute Lymphs (auto) 1.07 L (1.18-3.74) x10^3/uL Absolute Monos (auto) 0.84 (0.24-0.86) x10^3/uL Absolute Nucleated RBC 0.00 (0.00-0.012) x10^3u/L Lymphocytes % 7.2 L (19.3-51.7) % Monocytes % 5.7 (4.7-12.5) % Eosinophils % 0.2 L (0.7-5.8) % Basophils % 0.2 (0.1-1.2) % Absolute Granulocytes 12.80 H (1.56-6.13) x10^3/uL Basophils # 0.03 (0.01-0.08) x10^3/uL D-Dimer (0.0-0.50) mg/L Sodium 134 L (135-145) mmol/L Potassium 4.3 (3.5-5.1) mmol/L Chloride 98 (98-107) mmol/L Carbon Dioxide 34 H (22-30) mmol/L Anion Gap 7.1 (5-15) MEQ/L BUN 7 (7-17) mg/dL Creatinine 0.53 (0.52-1.04) mg/dL Estimated GFR 105.2 ML/MIN Glucose 118 H (74-106) mg/dL Calcium 9.4 (8.4-10.2) mg/dL Total Bilirubin 0.70 (0.2-1.3) mg/dL AST 46 H (14-36) U/L ALT 44 H (0-35) U/L Alkaline Phosphatase 77 (38-126) U/L Troponin I (0.000-0.033) ng/mL NT-Pro-B Natriuret Pep (<300) pg/mL Serum Total Protein 7.2 (6.3-8.2) g/dL Albumin 4.0 (3.5-5.0) g/dL Influenza Type A Ag (NEGATIVE) Influenza Type B Ag (NEGATIVE) RSV (PCR) (NEGATIVE) SARS-CoV-2 (PCR) (NEGATIVE) - Progress Progress: improved Air Movement: good Progress Note: 59-year-old female presents to emergency department for evaluation of shortness of breath and left-sided chest pain. D-dimer positive. CTA chest ordered. The report of the CTA still not available. Patient received her antibiotics. We advise hospitalization. Patient has a change of heart. Pay states she wants to go home she has responsibility she has 2 dependent children at home to care for her. Patient will be leaving AMA. AMA form completed. Patient is of sound mind. Patient is appropriate to make informed and independent medical decisions. Patient understands that leaving AGAINST MEDICAL ADVICE can result in delayed diagnosis, increased risk of morbidity, mortality, short and long-term disability including . In spite of these risks, patient has decided to leave AGAINST MEDICAL ADVICE. Patient understands that she may return to our ED at any point if she reconsiders. Patient agrees to follow-up with her primary care doctor within 48 hours for reevaluation. Patient voices no other complaints or concerns at this time. We will release patient AGAINST MEDICAL ADVICE per their request. Complexity of problem addressed is moderate acute complicated. No critical care time. Complex of data reviewed and analyzed is moderate. Test ordered test reviewed results analyzed and correlated clinically with history and physical exam. Risk of complication and or risk of morbidity/mortality of patient management is moderate. A prescription for azithromycin Augmentin, prednisone and albuterol inhaler forwarded to patient's pharmacy. Patient agrees to follow-up with the primary care doctor within 48 hours for evaluation. Vital stable. Time spent to discharge patient AMA is approximately 20 minutes. Plan of care established for shared decision making. No social determinants of health present to impede follow-up. Portions of this note were created with voice recognition technology. There may be grammatical, spelling, punctuation or sound alike errors 06/03/24 00:06 Blood Culture(s) Obtained: Yes Antibiotics given: Yes Counseled pt/family regarding: lab results, diagnosis, rad results - Departure Departure Disposition: AMA Clinical Impression: COPD exacerbation, Hypoxia, Shortness of breath, Cough Condition: Stable Critical Care Time: No Referrals: CEZAR CARTER NP [Primary Care Provider] - Follow up/PCP as directed Instructions: Chronic Obstructive Pulmonary Disease Additional Instructions: Discharge/Care Plan KAUSHIK MADRID was seen on 06/03/24 in the Emergency Room. The patient was counseled regarding Diagnosis,Lab results, Imaging studies, need for follow up and when to return to the Emergency Room. Prescriptions given: Discharge Note I have spoken with the patient and/or caregivers. I have explained the patient's condition, diagnosis and treatment plan based on the information available to me at this time. I have answered the patient's and/or caregiver's questions and addressed any concerns. The patient and/or caregivers have as good understanding of the patient's diagnosis, condition and treatment plan as can be expected at this point. The vital signs have been stable. The patient's condition is stable and appropriate for discharge from the emergency department. The patient will pursue further outpatient evaluation with the primary care physician or other designated or consulting physician as outlined in the discharge instructions. The patient and/or caregivers are agreeable to this plan of care and follow-up instructions have been explained in detail. The patient and/or caregivers have received these instruction. The patient/and or caregivers are aware that any significant change in condition or worsening of symptoms should prompt an immediate return to this or the closest emergency department or call 911. Prescriptions: Amox Tr/Potass Clav. 875 mg [Augmentin 875-125 Tablet] 875 mg PO BID 7 Days #14 tablet Prednisone 10 mg [Deltasone 10 mg] 40 mg PO DAILY 3 Days #12 tablet Albuterol 8 gm Mdi Hfa [Ventolin Hfa MDI] 8 gm IH Q4-6HPRN PRN #1 inhaler PRN Reason: Shortness Of Breath Azithromycin 250 mg [Zithromax 250 MG TABLET] 250 mg PO ZPACK #6 tablet
[2024-06-02] MEDS ORDERED: ROCEPHIN 2 GM/100 ML NACL 2 GM/100 ML IVPB IV ONE (20:41)
[2024-06-02] MEDS: ROCEPHIN 2 GM/100 ML NACL 2 GM/100 ML IVPB IV ONE (20:42)
[2024-06-02] MEDS ORDERED: PROVENTIL 2.5 MG/3 ML NEB IH ONE (20:46)
[2024-06-02] MEDS: PROVENTIL 2.5 MG/3 ML NEB IH ONE (20:46)
[2024-06-02 20:59] LABS: BASOPHIL % 0.2 % (0.1-1.2); Basophil (Absolute #) 0.03 x10^3/uL (0.01-0.08); Eosinophil % 0.2 % (0.7-5.8); Eosinophil (Absolute #) 0.03 x10^3/uL (0.04-0.36); Hematocrit 44.5 % (34.1-44.9); Hemoglobin 14.1 g/dL (11.2-15.7); IMMATURE GRAN # 0.06 x10^3u/L (0.001-0.031); IMMATURE GRAN % 0.4 % (0.001-0.429); Lymphocyte (Absolute #) 1.07 x10^3/uL (1.18-3.74); Lymphocytes % 7.2 % (19.3-51.7); Mean Cell Volume 96.5 fL (79.4-94.8); Mean Corpuscular Hemoglobin 30.6 pg (25.6-32.2); Mean Corpuscular Hgb Concent. 31.7 g/dL (32.2-35.5); Mean Platelet Volume 8.8 fL (9.4-12.3); Monocyte (Absolute #) 0.84 x10^3/uL (0.24-0.86); Monocytes % 5.7 % (4.7-12.5); Neutrophil % 86.3 % (34.0-71.1); Platelet Count 268 x10^3/uL (182-369); Red Blood Count 4.61 x10^6/uL (3.93-5.22); Red Cell Distribution Width 12.6 % (11.7-14.4); White Blood Count 14.8 x10^3/uL (3.98-10.04)
[2024-06-02 21:12] LABS: ANION GAP 7.1 MEQ/L (5-15); BILIRUBIN,TOTAL 0.7 mg/dL (0.2-1.3); Calcium 9.4 mg/dL (8.4-10.2); Creatinine 1 0.53 mg/dL (0.52-1.04); EST GLOMERULAR FILTRATION RATE 105.2 ML/MIN; Potassium 4.3 mmol/L (3.5-5.1); Total Protein 7.2 g/dL (6.3-8.2)
[2024-06-02] MEDS ORDERED: Zithromax 500 MG/ 250 ML NaCl Premix 500 MG/250 ML IVPB IV ONE (21:16)
[2024-06-02] MEDS: Zithromax 500 MG/ 250 ML NaCl Premix 500 MG/250 ML IVPB IV STA (21:20)
[2024-06-02 21:24] LABS: TROPONIN < 0.012 ng/mL (0.000-0.033)
[2024-06-02 21:40] LABS: INFLUENZA A NEGATIVE (NEGATIVE); INFLUENZA B NEGATIVE (NEGATIVE); RESPIRATORY SYNCTIAL VIRUS NEGATIVE (NEGATIVE); SARS-CoV-2 Xpert Express NEGATIVE (NEGATIVE)
[2024-06-02 23:04] VITALS: BP 98/55; PULSE 89; RESP 30
[2024-06-02 23:07] VITALS: O2SAT 92
--- NOTE | 2024-06-02 23:58 | XRAY ---
CLINICAL HISTORY: PE PROTOCOL COMPARISON: None. TECHNIQUE: Contiguous axial images were obtained from the neck base through the upper abdomen with contrast. In addition, sagittal and coronal reconstructions were performed to potentially increase the sensitivity for the detection of disease. CT scan was performed according to ALARA (as low as reasonably achievable). FINDINGS: Multiple patchy areas of consolidations, branching centrilobular nodules are noted involving bilateral upper lobes and left lower lobe. Calcified granuloma is noted in the apicoposterior segment of the left upper lobe. Multiple centriacinar and paraseptal emphysematous changes are noted in bilateral upper lobe. The central airways are patent. There are no pleural effusions. No pneumothorax is seen. Evaluation of the mediastinum and dorothea is limited due to the lack of intravenous contrast. The heart is normal in size. No pericardial effusion is identified. Aorta, and pulmonary arteries are of normal size and configuration. There are few coronary artery and aortic atherosclerotic calcifications. No axillary or mediastinal adenopathy is identified. The thyroid is unremarkable. Imaged portions of the upper abdomen are grossly unremarkable. No aggressive appearing osseous lesions are identified. IMPRESSION: 1. No pulmonary embolism. 2. Multiple patchy areas of consolidations, branching centrilobular nodules are noted involving bilateral upper lobes and left lower lobe. Findings suggestive of infective etiology. Suggested lab correlation. 3. Calcified granuloma is noted in the apicoposterior segment of the left upper lobe. 4. Multiple centriacinar and paraseptal emphysematous changes are noted in bilateral upper lobe. Electronically Signed by: Carlos Argueta MD. (06/02/2024 23:53:58 EST)
== END 2024-06-03 00:07 | disposition left against medical advice (07) ==
LOC: ED 20:11
DX: J44.1 Chronic obstructive pulmonary disease with (acute) exacerbation (principal); R09.02 Hypoxemia; R06.02 Shortness of breath; R05.9 Cough, unspecified; R07.9 Chest pain, unspecified; I10 Essential (primary) hypertension; Z79.52 Long term (current) use of systemic steroids; Z79.899 Other long term (current) drug therapy; Z99.81 Dependence on supplemental oxygen
CPT/HCPCS: 0241U; 36415; 71260; 80053; 83880; 84484; 85025; 85379; 87040; 93005; 93041; 94640; 94760; 99285; 99284; J0456; J0696; J7609; A9270-GY